=== PATIENT | female | born 1940 | race Caucasian/White ===

== ENCOUNTER 2017-01-26 08:24 | Inpatient (IN) | payer MEDICARE, MEDICAID ==
[~2017-01-26] VITALS: Ht 162.6 cm; Wt 49.9 kg
[2017-01-26] MEDS ORDERED: IV NS 0.9% 500 ML BAG IV ONE (08:30)
[2017-01-26] MEDS ORDERED: IV NS 0.9% 500 ML IV ONE (08:32)
[2017-01-26] MEDS ORDERED: IV SET PRIMARY 1 EA INFUS.SET MC ONE (08:32)
[2017-01-26 08:44] LABS: BASOPHILS % (AUTO) 0.4 % (0.0-2.0); EOSINOPHILS # (AUTO) 0.3 /CMM (0.0-0.7); EOSINOPHILS % (AUTO) 2.9 % (0.0-6.0); HEMATOCRIT 44 % (33-45); HEMOGLOBIN 14.6 g/dL (11.5-14.8); LYMPHOCYTES # (AUTO) 2.8 /CMM (0.8-4.8); LYMPHOCYTES % (AUTO) 30.4 % (20.0-44.0); MEAN CORPUSCULAR HEMOGLOBIN 32 PG (26.0-33.0); MEAN CORPUSCULAR HGB CONC 34 g/dl (31.0-36.0); MEAN CORPUSCULAR VOLUME 96 fL (82-100); MONOCYTES # (AUTO) 0.9 /CMM (0.1-1.30); MONOCYTES % (AUTO) 9.9 % (2.0-12.0); NEUTROPHILS # (AUTO) 5.2 /CMM (1.8-8.9); NEUTROPHILS % (AUTO) 56.4 % (43.0-81.0); PLATELET COUNT (AUTO) 303 /CMM (150-450); RDW COEFFICIENT OF VARIATION 16.1 (11.5-15.0); RED BLOOD CELL COUNT(AUTO) 4.55 MIL/uL (4.0-5.2); WHITE BLOOD COUNT (AUTO) 9.2 K/uL (4.3-11.0)
[2017-01-26 08:59] LABS: ALANINE AMINOTRANSFERASE 24 U/L (12-78); ALBUMIN 3.3 g/dL (3.4-5.0); ALKALINE PHOSPHATASE 120 U/L (46-116); ASPARTATE AMINOTRANSFERASE 29 U/L (15-37); BILIRUBIN,DIRECT 0.1 mg/dL (0.0-0.2); BILIRUBIN,TOTAL 0.7 mg/dL (0.2-1.0); CALCIUM, SERUM 9.5 mg/dL (8.5-10.1); CARBON DIOXIDE 26 mmol/L (21-32); CHLORIDE 107 mmol/L (98-107); CREATININE 1.1 mg/dL (0.6-1.3); GLUCOSE 101 mg/dL (74-106); POTASSIUM 4.2 mmol/L (3.5-5.1); SODIUM SERUM 141 mmol/L (136-145); TOTAL PROTEIN, SERUM 8.1 g/dL (6.4-8.2); UREA NITROGEN, BLOOD 17 mg/dL (7-18)
[2017-01-26 09:01] LABS: INR 1.09 (0.87-1.13); PROTHROMBIN TIME 11.7 SECS (9.5-12.7); TROPONIN I < 0.017 ng/mL (0.00-0.056)
[2017-01-26 10:30] LABS: APPEARANCE,URINE Clear (CLEAR); BILIRUBIN,URINE Negative (NEGATIVE); BLOOD, URINE Trace-lysed Ery/uL (NEGATIVE); COLOR,URINE Yellow (YELLOW); KETONES,URINE Negative (NEGATIVE); LEUKOCYTE ESTERASE ,URINE Trace (NEGATIVE); NITRITE, URINE Negative (NEGATIVE); PROTEIN,URINE 30 mg/dl (NEGATIVE); UGLUCOSE Negative (NEGATIVE); UROBILINOGEN,URINE 0.2 EU/dL (0.2)
[2017-01-26] MEDS ORDERED: ASPIRIN 81 MG TAB.CHEW PO ONE (10:30)
[2017-01-26 10:43] LABS: RBC,URINE 0-2 /HPF (0-2)
[2017-01-26 10:44] LABS: BACTERIA,URINE Rare /HPF (None Seen); SQUAMOUS EPITHELIAL CELL,UR Many /HPF (None Seen); WBC,URINE 0-2 /HPF (0-3)
[2017-01-26] MEDS ORDERED: ASPIRIN 81 MG TAB.CHEW ONE (10:52)
[2017-01-26 11:10] VITALS: BP 132/76
[2017-01-26 11:15] VITALS: BP_SYST 136; BP_SYST 154; BP_DIAS 75; BP_DIAS 88
[2017-01-26] MEDS ORDERED: HYDROCORTISONE 1% CREAM 28.35 GM TUBE TP PRN (11:40)
[2017-01-26] MEDS: METOPROLOL TARTRATE 50 MG TABLET PO SCH ×2 (12:39→21:45)
[2017-01-26] MEDS ORDERED: NITROGLYCERIN 0.4 MG/TAB BOTTLE SL PRN (13:30)
[2017-01-26 13:50] VITALS: BP 101/70
[2017-01-26 16:00] VITALS: BP 107/55
[2017-01-26] MEDS: APIXABAN 5 MG TABLET PO SCH (17:46)
[2017-01-26 20:00] VITALS: BP 141/76
[2017-01-26 20:27] LABS: MAGNESIUM 1.8 mg/dL (1.8-2.4); PHOSPHORUS 3.2 mg/dL (2.5-4.9)
[2017-01-26] MEDS: DRONEDARONE HYDROCHLORIDE 400 MG TABLET PO SCH (21:44)
[2017-01-26] MEDS: ATORVASTATIN 10 MG TABLET PO SCH (21:45)
[2017-01-27] VITALS: BP_SYST 116; BP_SYST 127; BP_DIAS 68; BP_DIAS 77
[2017-01-27 04:00] VITALS: BP_SYST 150; BP_SYST 154; BP_DIAS 89
[2017-01-27 08:00] VITALS: BP 143/83
[2017-01-27] MEDS ORDERED: REGADENOSON 0.4 MG/5 ML DISP.SYRIN IVP ONE (09:00)
[2017-01-27] MEDS: DRONEDARONE HYDROCHLORIDE 400 MG TABLET PO SCH ×2 (10:08→17:04)
[2017-01-27] MEDS: LEVOTHYROXINE SODIUM 25 MCG TABLET PO SCH (10:09)
[2017-01-27] MEDS: CHOLECALCIFEROL 1,000 UNIT TABLET (VIT D3) PO SCH (10:09)
[2017-01-27] MEDS: METOPROLOL TARTRATE 50 MG TABLET PO SCH ×2 (10:09→17:05)
[2017-01-27] MEDS: ASPIRIN 81 MG TAB.CHEW PO SCH (10:09)
[2017-01-27] MEDS: APIXABAN 5 MG TABLET PO SCH ×2 (10:10→17:05)
[2017-01-27] MEDS: LOSARTAN POTASSIUM 50 MG TABLET PO SCH (10:10)
[2017-01-27 12:00] VITALS: BP 147/77
[2017-01-27 16:00] VITALS: BP 117/72
[2017-01-27 20:00] VITALS: BP 114/70
[2017-01-27] MEDS: ATORVASTATIN 10 MG TABLET PO SCH (21:24)
[2017-01-28] VITALS: BP 114/70
[2017-01-28 04:00] VITALS: BP 144/96
[2017-01-28] MEDS: LEVOTHYROXINE SODIUM 25 MCG TABLET PO SCH (07:58)
[2017-01-28 08:00] VITALS: BP 133/74
[2017-01-28] MEDS: METOPROLOL TARTRATE 50 MG TABLET PO SCH (08:02)
[2017-01-28 08:03] VITALS: BP 133/74
[2017-01-28] MEDS: CHOLECALCIFEROL 1,000 UNIT TABLET (VIT D3) PO SCH (08:03)
[2017-01-28] MEDS: LOSARTAN POTASSIUM 50 MG TABLET PO SCH (08:03)
[2017-01-28] MEDS: APIXABAN 5 MG TABLET PO SCH (08:03)
[2017-01-28] MEDS: ASPIRIN 81 MG TAB.CHEW PO SCH (08:03)
[2017-01-28] MEDS: DRONEDARONE HYDROCHLORIDE 400 MG TABLET PO SCH (08:04)
== END 2017-01-28 14:23 | DRG 309 ==
LOC: ER 08:28 → TELE 09:51 → TELE-TD 14:13 → TELE1 01-27 15:55 → MEDSG1 01-28 11:57
PROVIDERS: ADMIT Internal Medicine; ATTEND Internal Medicine
DX: I48.91 Unspecified atrial fibrillation (principal); Z68.1 Body mass index [BMI] 19.9 or less, adult; J84.10 Pulmonary fibrosis, unspecified; F01.50 Vascular dementia, unspecified severity, without behavioral disturbance, psychotic disturbance, mood disturbance, and anxiety; E44.1 Mild protein-calorie malnutrition; I25.2 Old myocardial infarction; I47.1 Supraventricular tachycardia; I25.10 Atherosclerotic heart disease of native coronary artery without angina pectoris; J47.9 Bronchiectasis, uncomplicated; K21.9 Gastro-esophageal reflux disease without esophagitis; R55 Syncope and collapse; I10 Essential (primary) hypertension; R05 Cough; R91.1 Solitary pulmonary nodule; E03.9 Hypothyroidism, unspecified
CPT/HCPCS: 36415; 70450-TC; 71010-TC; 71250-TC; 80048-TC; 80061-TC; 80076-TC; 81000-TC; 83605-TC; 83735-TC; 84100-TC; 84439-TC; 84443-TC; 84484-TC; 85025-TC; 85730-TC; 87040-TC; 87081-TC; 87086-TC; 93307-TC; A4606; A9502; J2785; J7040; Z7610

== ENCOUNTER 2018-03-19 23:57 | Inpatient (IN) | payer MEDICARE, MEDICAID ==
[~2018-03-19] VITALS: Ht 152.4 cm; Wt 69.9 kg
[2018-03-20] VITALS (67 sets, daily range): BP systolic 51–250; BP diastolic 35–129
--- NOTE | 2018-03-20 | NUR ---
BBRA FROM [facility] ASSISTED LIVING C/C PER EMS "WAS WONDERING INTO OTHER RESIDENTS ROOMS AND PER FACILITY, IS MORE ALTERED THAN NORMAL". PT IS AAOX1. PT NOTED TO BE LETHARGIC AND TACHYPNIC. MILD S/S OF DISTRESS NOTED IN PT. RESP EVEN AND RAPID AT 32-38 PER MINUTE. SPO2 96% ON RA, PER MD PT PLACED ON NR 15L/M. SKIN WNL. PT PLACED ON MACHINE SPRAYER AND POX. PT SAFETY AND COMFORT MEASURES IN PLACE. BEDSIDE FOR EVAL.
--- NOTE | 2018-03-20 00:10 | NUR ---
PT STATES "I FEEL LIKE IM GOING TO ". PT NOTED SPITTING/COUGHING OUT BRIGHT RED BLOOD. MD BEDSIDE AND AWARE. WILL CONTINUE TO MONITOR
[2018-03-20] MEDS ORDERED: DEXTROSE 50%-WATER 50 ML DISP.SYRIN ONE (00:21)
[2018-03-20] MEDS ORDERED: IV NS 0.9% 1,000 ML BAG IV ONE ×3 (00:30→01:00)
[2018-03-20 00:39] LABS: BASOPHILS % (AUTO) 0.1 % (0.0-2.0); EOSINOPHILS % (AUTO) 0.3 % (0.0-6.0); HEMATOCRIT 47 % (33-45); HEMOGLOBIN 14.8 g/dL (11.5-14.8); LYMPHOCYTES # (AUTO) 0.3 /CMM (0.8-4.8); LYMPHOCYTES % (AUTO) 6.8 % (20.0-44.0); MEAN CORPUSCULAR HGB CONC 32 g/dl (31.0-36.0); MEAN CORPUSCULAR VOLUME 100 fL (82-100); MONOCYTES % (AUTO) 0.2 % (2.0-12.0); NEUTROPHILS # (AUTO) 3.6 /CMM (1.8-8.9); NEUTROPHILS % (AUTO) 92.6 % (43.0-81.0); PLATELET COUNT (AUTO) 163 /CMM (150-450); RED BLOOD CELL COUNT(AUTO) 4.69 MIL/uL (4.0-5.2); WHITE BLOOD COUNT (AUTO) 3.8 K/uL (4.3-11.0)
[2018-03-20 00:41] LABS: APPEARANCE,URINE CLEAR (CLEAR); BILIRUBIN,URINE NEGATIVE (NEGATIVE); BLOOD, URINE 2+ Ery/uL (NEGATIVE); COLOR,URINE ORANGE (YELLOW); KETONES,URINE NEGATIVE (NEGATIVE); LEUKOCYTE ESTERASE ,URINE NEGATIVE (NEGATIVE); NITRITE, URINE NEGATIVE (NEGATIVE); PROTEIN,URINE 1+ mg/dl (NEGATIVE); UGLUCOSE TRACE mg/dL (NEGATIVE)
[2018-03-20] MEDS ORDERED: PANTOPRAZOLE 40 MG VIAL ONE ×2 (00:42→00:46)
[2018-03-20] MEDS ORDERED: PROPOFOL 100 ML ONE (00:42)
--- NOTE | 2018-03-20 00:45 | NUR ---
MD PETER BEDSIDE. RT BARRY BEDSIDE. TEXTILE SLITTING MACHINE OPERATOR DEGRASSEE BEDSIDE. RN WEI,RN PAO BEDSIDE FOR ASSISTANCE FOR INTUBATION.
[2018-03-20 00:47] LABS: BACTERIA,URINE Few /HPF (None Seen); RBC,URINE 81-100 /HPF (0-2)
[2018-03-20 00:48] LABS: SQUAMOUS EPITHELIAL CELL,UR Few /HPF (None Seen)
--- NOTE | 2018-03-20 00:48 | NUR ---
SUCCESSFUL INTUBATION AT 0048
--- NOTE | 2018-03-20 00:48 | NUR ---
VENT SETTINGS FOLLOW: AC30, 450, 100%, PEEP 10
[2018-03-20 00:53] LABS: CALCIUM, SERUM 8.8 mg/dL (8.5-10.1); CARBON DIOXIDE 20 mmol/L (21-32); CHLORIDE 102 mmol/L (98-107); CREATININE 1.2 mg/dL (0.6-1.3); GLUCOSE 105 mg/dL (74-106); POTASSIUM 5.7 mmol/L (3.5-5.1); SERUM AMMONIA 26 umol/L (11-32); SODIUM SERUM 136 mmol/L (136-145); UREA NITROGEN, BLOOD 25 mg/dL (7-18)
--- NOTE | 2018-03-20 00:53 | NUR ---
PT INUTBATED BY DO PETER WITH 7.5 ETT AND 23 CM @ LIP AND PLACED ON AC MODE. VERIFIED TUBE BY POSITIVE COLOR CHANGE ON CAPNOGRAPY AND BY MIST ON EXHALATION IN TUBE. PT TOLERATING VENT SETTINGS WELL WITH NO RESPIRATORY DISTRESS NOTED AT THIS TIME. BREATH SOUNDS COARSE. SX PRN RETURNING FRESH BLOODY SECRETIONS. VENT ALARMS CHECKED FOUND TO BE FUNCTIONAL, AUDIBLE, AND WITHIN LIMITS. VENT PLUGGED INTO RED OUTLET. BVM AT BEDSIDE. WILL CONTINUE TO MONITOR.
[2018-03-20 00:54] LABS: INR 1.97 (0.87-1.13)
[2018-03-20] MEDS ORDERED: ROCURONIUM BROMIDE 100 MG/10 ML VIAL IV ONE (01:00)
[2018-03-20] MEDS ORDERED: PANTOPRAZOLE 80 MG in IV NS 0.9% 500 ML IV ONE (01:00)
[2018-03-20] MEDS ORDERED: ETOMIDATE 2 MG/ML VIAL IV ONE ×2 (01:00→08:40)
[2018-03-20] MEDS ORDERED: DEXTROSE 50%-WATER 50 ML DISP.SYRIN IVP ONE (01:00)
[2018-03-20] MEDS ORDERED: PROPOFOL 100 ML IV PRN ×2 (01:00→03:30)
[2018-03-20] MEDS ORDERED: PANTOPRAZOLE 80 MG in IV NS 0.9% 100 ML IV ONE (01:00)
--- NOTE | 2018-03-20 01:03 | NUR ---
ICU 260
[2018-03-20 01:04] LABS: TROPONIN I < 0.017 ng/mL (0.00-0.056)
[2018-03-20 01:08] LABS: ALANINE AMINOTRANSFERASE 23 U/L (12-78); ALBUMIN 3.4 g/dL (3.4-5.0); ALCOHOL, BLOOD < 3 mg/dL (0-0); ALKALINE PHOSPHATASE 114 U/L (46-116); ASPARTATE AMINOTRANSFERASE 59 U/L (15-37); BILIRUBIN,DIRECT 0.8 mg/dL (0.0-0.2); BILIRUBIN,TOTAL 3.2 mg/dL (0.2-1.0); TOTAL PROTEIN, SERUM 7.7 g/dL (6.4-8.2)
[2018-03-20 01:09] LABS: THYROID STIMULATING HORMONE 10.414 uIU/mL (0.358-3.74)
[2018-03-20 01:16] LABS: SALICYLATE < 0.2 mg/dL (2.8-20.0)
[2018-03-20] MEDS ORDERED: IOHEXOL-350 100 ML VIAL IV ONE (01:16)
[2018-03-20] MEDS ORDERED: IV NS 0.9% 250 ML IV ONE (01:16)
[2018-03-20] MEDS ORDERED: CT SWABBABLE VALVE TRANS SET 1 EA INFUS.SET MC ONE (01:16)
[2018-03-20 01:17] LABS: ACETAMINOPHEN < 0 ug/ml (10-30)
[2018-03-20 02:15] LABS: ABG BASE EXCESS -12.1 mmol/L; ABG OXYGEN SATURATION 93.7 % (92.0-98.5); ABG PCO2 33.3 mmHg (35.0-45.0); ABG PH 7.243 (7.350-7.450); ABG PO2 84.1 mmHg (75.0-100.0); AaDO2 451.3 mmHg; COHb 0.5 % (0.5-1.5); MetHb 0.5 % (0.0-1.5); O2Hb 92.8 % (94.0-97.0); SITE, ABG Left Radial; VENT MODE, BG NRB
[2018-03-20 02:16] LABS: ABG BASE EXCESS -11.4 mmol/L; ABG OXYGEN SATURATION 90.6 % (92.0-98.5); ABG PCO2 44.7 mmHg (35.0-45.0); ABG PH 7.185 (7.350-7.450); ABG PO2 76.1 mmHg (75.0-100.0); AaDO2 592.2 mmHg; COHb 0.8 % (0.5-1.5); MetHb 0.6 % (0.0-1.5); O2Hb 89.3 % (94.0-97.0); PEEP,BG 10 cm H2O; SITE, ABG Right Radial; VENT MODE, BG AC 30 450 100% +10; VT, ABG 450 mL
[2018-03-20] MEDS ORDERED: SODIUM BICARBONATE SYR 50 MEQ/50 ML DISP.SYRIN ONE ×2 (02:26→04:34)
[2018-03-20] MEDS ORDERED: VANCOMYCIN 1 GM VIAL ONE (02:26)
[2018-03-20] MEDS ORDERED: PIPERACILLIN /TAZOBACTAM 3.375 G VIAL IV ONE (02:26)
[2018-03-20] MEDS ORDERED: VANCOMYCIN 1 GM in IV D5W 250 ML IV ONE (02:30)
[2018-03-20] MEDS ORDERED: SODIUM BICARBONATE SYR 50 MEQ/50 ML DISP.SYRIN IV ONE (02:30)
[2018-03-20] MEDS ORDERED: SODIUM BICARBONATE SYR 100 MEQ in IV NS 0.9% 1,000 ML IV PRN (02:30)
[2018-03-20] MEDS ORDERED: PIPERACILLIN /TAZOBACTAM 3.375 G in IV D5W 50 ML IV ONE (02:30)
--- NOTE | 2018-03-20 03:22 | NUR ---
REPORT GIVEN TO WEIGH MACHINE OPERATORALEJANDRA JUARES FOR [facility]
--- NOTE | 2018-03-20 03:36 | NUR ---
WET PRESS TENDER INITIAL NOTE RECEIVED REPORT FROM ER NURSE VANDANA. RECEIVED PATIENT VIA GURNEY, SEDATED ON DIPRIVAN AT 20MCG/KG/MIN, INTUBATED IN ER, ETT 7.5 CM, 23CM AT THE LIP. WITH VENT SETTINGS AC 30, TV 450, FIO2 100%, PEEP 10. NO DISTRESS NOTED. NO S/S OF PAIN OR DISCOMFORT. NOTED WITH BLOOD TINGED SECRETIONS UPON SUCTIONING ETT. NOTED WITH LAC AND RFA 18G PERIPHERAL IV PATENT AND INTACT, VANCO RUNNING. ON TELE MONITOR SR WITH OCC PVCS. F/C PATENT, INTACT, DRAINING BY GRAVITY. SKIN ASSESSMENT DONE. WILL INITIATE ADMISSION ORDERS. HOB ELEVATED. SIDE RAILS UP AND LOCKED. BED KEPT AT LOWEST POSITION. CALL LIGHT KEPT WITHIN EASY REACH. WILL CONTINUE TO MONITOR.
--- NOTE | 2018-03-20 04:00 | NUR ---
RN NOTES RECEIVED CALL FROM DR BENOIT. PER DR BENOIT, FOLLOW UP WITH THE GI ON-CALL REGARDING SCOPING THIS PATIENT SOON POSSIBLE. CALLED AND SPOKE TO DR RADHA MORTENSEN. RELAYED DR BENOIT'S MESSAGE REGARDING NEED TO SCOPE THIS PATIENT. PER DR MORTENSEN, CONTINUE TO MONITOR THE PATIENT AND REPEAT H/H @ 0600, THEN CALL BACK WITH UPDATES. ALL ORDERS READ BACK FOR CLARIFICATION. WILL CONTINUE TO CLOSELY MONITOR
[2018-03-20] MEDS: PROPOFOL 100 ML IV PRN ×3 (04:01→17:53)
[2018-03-20] MEDS ORDERED: MISCELLANEOUS MED 1 EA EA XX ONE (04:30)
[2018-03-20] MEDS: Sodium Bicarbonate 50 MEQ in IV 1/2NS 1000 ML 1,000 ML IV PRN ×2 (04:39→17:56)
[2018-03-20] MEDS ORDERED: OCTREOTIDE 500 MCG/ML VIAL ONE ×2 (04:54→05:26)
[2018-03-20] MEDS ORDERED: OCTREOTIDE 50 MCG in IV NS 0.9% 50 ML IV ONE (05:00)
[2018-03-20] MEDS ORDERED: OCTREOTIDE 1,250 MCG in IV NS 0.9% 247.5 ML IV PRN (05:00)
--- NOTE | 2018-03-20 05:00 | NUR ---
RN NOTES LEFT NARE NGT INSERTED, PATIENT TOLERATED WELL. ATTEMPTED TO ASPIRATE GASTRIC CONTENTS, NOTED WITH < 10ML OF ARNALDO RED BLOOD
[2018-03-20 06:50] LABS: EOSINOPHILS % (AUTO) 0.2 % (0.0-6.0); HEMATOCRIT 38 % (33-45); HEMOGLOBIN 12.5 g/dL (11.5-14.8); LYMPHOCYTES # (AUTO) 1.3 /CMM (0.8-4.8); LYMPHOCYTES % (AUTO) 7.6 % (20.0-44.0); MEAN CORPUSCULAR HGB CONC 33 g/dl (31.0-36.0); MEAN CORPUSCULAR VOLUME 101 fL (82-100); MONOCYTES # (AUTO) 0.2 /CMM (0.1-1.30); MONOCYTES % (AUTO) 0.9 % (2.0-12.0); NEUTROPHILS % (AUTO) 91.3 % (43.0-81.0); PLATELET COUNT (AUTO) 213 /CMM (150-450); RDW COEFFICIENT OF VARIATION 16.5 (11.5-15.0); RED BLOOD CELL COUNT(AUTO) 3.82 MIL/uL (4.0-5.2); WHITE BLOOD COUNT (AUTO) 17.5 K/uL (4.3-11.0)
--- NOTE | 2018-03-20 07:10 | NUR ---
ROLL ICER NOTES RECEIVED CALL FROM DR BENOIT FOR UPDATE REGARDING PATIENT. VSS AT THIS TIME. LEFT NARE NGT INSERTED ATTEMPTED TO ASPIRATE GASTRIC CONTENTS, WITH OUTPUT OF < 10ML OF ARNALDO RED BLOOD. ALSO RELAYED LATEST LAB RESULTS OF H/H ., FROM . RECEIVED VERBAL ORDER FROM DR BENOIT TO STOP OCTREOTIDE DRIP AND CONTINUE PROTONIX IVP AND ALL OTHER ORDERS.
--- NOTE | 2018-03-20 07:15 | NUR ---
RN INITIAL NOTES RECEIVED PT INTUBATED, ON VENT. NO RESPIRATORY DISTRESS NOTED. NO SOB NOTED. HOB ELEVATED. NO SIGNS OF PAIN NOTED. IV LINES IN PLACE. PT ON DIPRIVAN AT 20MCG/KG,MIN. WILL TITRATE ACCORDINGLY. ON IVF: 1/2 NS + SODIUM BICARB 50MEQ AT 75ML/HR, INFUSING WELL. FC IN PLACE. NO HEMATURIA NOTED. PT REPOSITIONED. BLE ELEVATED. WILL CONTINUE TO MONITOR.
--- NOTE | 2018-03-20 07:28 | NUR ---
PT. RECEIVED ON VENT SUPPORT VIA ET TUBE SIZE 7.5 SECURED @ 23 CM LIP LINE. VENT PARAMETERS BELOW ORDER: AC 30 VT 450 FIO2 100% PEEP + 10 BREATH SOUNDS CLEAR BILATERAL, SXN MODERATE AMNT BLOOD TINGED SECRETIONS. SEMAJU BAG @ BEDSIDE. Addendum: 03/20/18 at 1035 by KERMIT POTTS RT Amended: Links added.
[2018-03-20 07:59] LABS: BAND % (MANUAL) 34 % (0.0-5.0); LYMPHOCYTES % (MANUAL) 4 % (16-48); METAMYELOCYTES % 1 % (0-0); MONOCYTES % (MANUAL) 4 % (0-11.0); NEUTROPHILS % (MANUAL) 57 (42-76)
[2018-03-20 08:23] LABS: EOSINOPHILS % (AUTO) 0.5 % (0.0-6.0); HEMATOCRIT 36 % (33-45); HEMOGLOBIN 11.9 g/dL (11.5-14.8); LYMPHOCYTES # (AUTO) 1.1 /CMM (0.8-4.8); MEAN CORPUSCULAR HGB CONC 33 g/dl (31.0-36.0); MEAN CORPUSCULAR VOLUME 101 fL (82-100); MONOCYTES # (AUTO) 0.4 /CMM (0.1-1.30); MONOCYTES % (AUTO) 1.6 % (2.0-12.0); NEUTROPHILS % (AUTO) 92.9 % (43.0-81.0); PLATELET COUNT (AUTO) 180 /CMM (150-450); RDW COEFFICIENT OF VARIATION 16.7 (11.5-15.0); RED BLOOD CELL COUNT(AUTO) 3.57 MIL/uL (4.0-5.2); WHITE BLOOD COUNT (AUTO) 21.6 K/uL (4.3-11.0)
[2018-03-20 08:26] LABS: ABG BASE EXCESS -1.2 mmol/L; ABG OXYGEN SATURATION 95.7 % (92.0-98.5); ABG PCO2 40.2 mmHg (35.0-45.0); ABG PH 7.388 (7.350-7.450); ABG PO2 89.6 mmHg (75.0-100.0); AaDO2 583.2 mmHg; COHb 0.3 % (0.5-1.5); MetHb 0.5 % (0.0-1.5); O2Hb 94.9 % (94.0-97.0); PEEP,BG 10 cm H2O; SITE, ABG Right Brachial; VT, ABG 450 mL
[2018-03-20] MEDS ORDERED: FEE PK DOSING 1 MIN EA MC ONE (08:35)
[2018-03-20 08:39] LABS: BAND % (MANUAL) 32 % (0.0-5.0); LYMPHOCYTES % (MANUAL) 2 % (16-48); MONOCYTES % (MANUAL) 3 % (0-11.0); NEUTROPHILS % (MANUAL) 63 (42-76)
[2018-03-20] MEDS ORDERED: ROCURONIUM BROMIDE 50 MG/5 ML IV ONE (08:40)
[2018-03-20] MEDS: PANTOPRAZOLE 40 MG VIAL IV SCH ×2 (08:49→21:32)
[2018-03-20] MEDS: SOTALOL HCL 80 MG TABLET PO SCH ×2 (08:49→17:00)
--- NOTE | 2018-03-20 09:53 | NUR ---
RN NOTES 0830 SEEN AND EXAMINED BY DR BENOIT. PT REMAINS INTUBATED, ON VENT. PT ON DIPRIVAN, WILL DO SEDATION VACATION. PT ON IVF. MD AWARE OF LAB VALUES: WBC 17.5, HGB 12.5, HCT 38, PLATELET 213 AND POTASSIUM 5.7. NO SIGNS OF ACTIVE BLEEDING NOTED. SANDOSTATIN IV DC'D PER MD. PT ON PROTONIX. FOR GI CONSULT, DR MORTENSEN NOTIFIED. WILL MONITOR. 0840 DR MORTENSEN CALLED AND STATED DR MUIR IS RELEASE OF INFORMATION CLERK FOR THIS PT. CALLED DR MUIR'S OFFICE ([phone]), PAGED. AWAITING CALL BACK. DR BENOIT AWARE. WILL CONTINUE TO MONITOR.
--- NOTE | 2018-03-20 10:30 | NUR ---
RN NOTES 1000 SEEN AND EXAMINED BY DR VAZ. PT INTUBATED, ON VENT. TOLERATING WEL. NO SOB NOTED. MD AWARE OF LAB VALUES, CXR AND ABG RESULT. PT ON IVF: 1/2 NS + SODIUM BICARB 50 MEQ AT 75ML/HR. NO SIGNS OF ACTIVE BLEEDING NOTED. WILL CONTINUE TO MONITOR 1030 SEEN AND EXAMINED BY DR MUIR. NO SIGNS OF ACTIVE BLEEDING. PT NOT ON ANY BLOOD THINNER. PT ON PROTONIX IV. VITAL SIGNS STABLE. WILL CONTINUE TO MONITOR.
--- NOTE | 2018-03-20 10:49 | NUR ---
WOUND CARE CONSULT: PT PRESENTS WITH FRAGILE SCAR TO SACRUM WITH SURROUNDING DEEP TISSUE INJURY WHICH IS INTACT, PRESENT ON ADMISSION. PT IS CURRENTLY INTUBATED WITH ASHIA SCORE OF 12. RECOMMENDATIONS MADE FOR WOUND CARE AND SKIN PROTECTION. DISCUSSED WITH NURSING STAFF. FIRST STEP LOW AIRLOSS MATTRESS ORDERED. WILL SEE PRN. IN AGREEMENT WITH PLAN OF CARE.
[2018-03-20] MEDS: Z GUARD REMEDY 2 OZ OINT TP SCH (11:00)
[2018-03-20] MEDS: ZOSYN IVPB 2.25 G in IV D5W 50ml IV SCH ×3 (12:11→23:32)
[2018-03-20 16:48] LABS: EOSINOPHILS % (AUTO) 0.1 % (0.0-6.0); HEMATOCRIT 31 % (33-45); HEMOGLOBIN 9.9 g/dL (11.5-14.8); LYMPHOCYTES # (AUTO) 0.8 /CMM (0.8-4.8); MEAN CORPUSCULAR HGB CONC 32 g/dl (31.0-36.0); MEAN CORPUSCULAR VOLUME 100 fL (82-100); MONOCYTES # (AUTO) 0.5 /CMM (0.1-1.30); MONOCYTES % (AUTO) 3.2 % (2.0-12.0); NEUTROPHILS # (AUTO) 15.5 /CMM (1.8-8.9); NEUTROPHILS % (AUTO) 91.7 % (43.0-81.0); PLATELET COUNT (AUTO) 164 /CMM (150-450); RDW COEFFICIENT OF VARIATION 16.5 (11.5-15.0); RED BLOOD CELL COUNT(AUTO) 3.08 MIL/uL (4.0-5.2); WHITE BLOOD COUNT (AUTO) 16.9 K/uL (4.3-11.0)
[2018-03-20 17:05] LABS: BAND % (MANUAL) 20 % (0.0-5.0); LYMPHOCYTES % (MANUAL) 10 % (16-48); METAMYELOCYTES % 1 % (0-0); MONOCYTES % (MANUAL) 8 % (0-11.0); MYELOCYTES % 1 % (0-0); NEUTROPHILS % (MANUAL) 60 (42-76)
[2018-03-20] MEDS ORDERED: PROTHROMBIN COMPLEX CONCENTR 500 UNIT VIAL IV ONE (17:30)
--- NOTE | 2018-03-20 17:44 | NUR ---
RN NOTES DR BENOIT CALLED AND GIVEN UPDATE REGARDING PT'S CONDITION. PT ORDERED KCENTRA A REVERSAL MEDICATION FOR XARELTO. PT HAS UPPER GI BLEED ON ADMISSION. PT SEEN AND EXAMINED BY DR MUIR AND ORDERED EGD, MOST LIKELY FOR JSOUÉ. NO MELENA NOTED. SPOKE WITH BILLY (PHARMACIST) REGARDING KCENTRA ORDER. WILL CONTINUE TO MONITOR.
[2018-03-20] MEDS: NOREPINEPHRINE 16 MG in IV D5W 500 ML IV PRN (18:27)
--- NOTE | 2018-03-20 18:47 | NUR ---
RN CLOSING NOTES PT REMAINS INTUBATED, ON VENT. NO RESPIRATORY DISTRESS NOTED. HOB ELEVATED. PT HAS LUIS ALBERTO PICC LINE. ON LEVO AT 1MCG/MIN, WILL TITRATE. DIPRIVAN AT 40MCG/MG/MIN AND IVF. NGT CLAMPED. FC IN PLACE. KEPT CLEAN AND DRY. REPOSITIONED Q2. TX PROVIDED ORDERED. B;LE ELEVATED. WILL ENDORSE FOR CONTINUITY OF CARE.
[2018-03-20] MEDS ORDERED: PROTHROMBIN COMPLEX CONCENTR IV ONE (20:00)
[2018-03-20] MEDS ORDERED: WATER FOR INJECTION STERILE IV ONE (20:00)
[2018-03-20 20:24] LABS: BILIRUBIN,DIRECT 2.5 mg/dL (0.0-0.2); BILIRUBIN,TOTAL 3.6 mg/dL (0.2-1.0); TOTAL PROTEIN, SERUM 4.9 g/dL (6.4-8.2)
[2018-03-20] MEDS ORDERED: ATORVASTATIN 40 MG TABLET PO SCH (22:00)
--- NOTE | 2018-03-20 22:00 | NUR ---
RN NOTES US ABDOMEN RESULTS RELAYED TO KAYKAY ALVAREZ NP. PER KAYKAY, ORDER HIDA SCAN FOR TOMORROW, WELL TOTAL AND DIRECT BILIRUBIN, AND LFTs FOR TOMORROW MORNING
--- NOTE | 2018-03-20 22:30 | NUR ---
RN NOTES SPOKE TO PATIENT'S SON ALINE DWYER, CONSENTS OBTAINED FOR BLOOD TRANSFUSION, HIDA SCAN, AND ANESTHESIA. ALL QUESTIONS REGARDING CONSENTS ANSWERED.
[2018-03-20 22:32] LABS: D-DIMER 14.04 mg/L(FEU (0.17-0.50)
[2018-03-21] VITALS (100 sets, daily range): BP systolic 79–162; BP diastolic 31–93
[2018-03-21] MEDS: PROPOFOL 100 ML IV PRN ×5 (01:05→22:30)
[2018-03-21] MEDS: VANCOMYCIN 1 GM in IV D5W 250 ML IV SCH (03:02)
--- NOTE | 2018-03-21 04:11 | NUR ---
pt received on vent via ett with charted settings. airway patent. secure via anchor fast. ambu bag at bedside. alarms set and audible, disconnect alarms checked plugged into red outlet suctioned a small amount of thin white secretions. pt hob at 30 degrees. suctioned oral secretion from pts mouth Addendum: 03/21/18 at 0411 by CHLOE STINSON RT Amended: Links added.
[2018-03-21 04:15] LABS: INR 1.48 (0.87-1.13)
[2018-03-21 04:25] LABS: ALANINE AMINOTRANSFERASE 27 U/L (12-78); ALBUMIN 1.9 g/dL (3.4-5.0); ALKALINE PHOSPHATASE 57 U/L (46-116); ASPARTATE AMINOTRANSFERASE 53 U/L (15-37); BILIRUBIN,DIRECT 2.2 mg/dL (0.0-0.2); BILIRUBIN,TOTAL 3.2 mg/dL (0.2-1.0); CALCIUM, SERUM 7.1 mg/dL (8.5-10.1); CARBON DIOXIDE 24 mmol/L (21-32); CHLORIDE 104 mmol/L (98-107); CREATININE 1.4 mg/dL (0.6-1.3); GLUCOSE 92 mg/dL (74-106); POTASSIUM 3.7 mmol/L (3.5-5.1); SODIUM SERUM 141 mmol/L (136-145); TOTAL PROTEIN, SERUM 4.9 g/dL (6.4-8.2); UREA NITROGEN, BLOOD 25 mg/dL (7-18)
[2018-03-21 04:50] LABS: BASOPHILS % (AUTO) 0.1 % (0.0-2.0); EOSINOPHILS % (AUTO) 0.1 % (0.0-6.0); HEMATOCRIT 27 % (33-45); HEMOGLOBIN 8.5 g/dL (11.5-14.8); LYMPHOCYTES # (AUTO) 0.5 /CMM (0.8-4.8); LYMPHOCYTES % (AUTO) 3.3 % (20.0-44.0); MEAN CORPUSCULAR HGB CONC 32 g/dl (31.0-36.0); MEAN CORPUSCULAR VOLUME 99 fL (82-100); MONOCYTES # (AUTO) 0.7 /CMM (0.1-1.30); MONOCYTES % (AUTO) 4.3 % (2.0-12.0); NEUTROPHILS # (AUTO) 13.8 /CMM (1.8-8.9); NEUTROPHILS % (AUTO) 92.2 % (43.0-81.0); PLATELET COUNT (AUTO) 155 /CMM (150-450); RDW COEFFICIENT OF VARIATION 16.7 (11.5-15.0); RED BLOOD CELL COUNT(AUTO) 2.72 MIL/uL (4.0-5.2)
--- NOTE | 2018-03-21 05:00 | NUR ---
RN NOTES PATIENT NOTED TO BE MILDLY AGITATED, PROPOFOL DRIP INCREASED PER PROTOCOL. WILL MONITOR CLOSELY
[2018-03-21 06:04] LABS: BAND % (MANUAL) 21 % (0.0-5.0); LYMPHOCYTES % (MANUAL) 5 % (16-48); MONOCYTES % (MANUAL) 3 % (0-11.0); NEUTROPHILS % (MANUAL) 71 (42-76)
[2018-03-21] MEDS: ZOSYN IVPB 2.25 G in IV D5W 50ml IV SCH ×3 (06:48→17:01)
--- NOTE | 2018-03-21 07:00 | NUR ---
ONCOLOGY COORDINATOR CLOSING NOTES PATIENT RESTING IN BED, APPEARS COMFORTABLE, REMAINS SEDATED ON DIPRIVAN @ 50 MCG/KG/MIN. NO FEVER THROUGHOUT SHIFT. REMAINS ORALLY INTUBATED ON MECHANICAL VENTILATOR, WITH BLOOD SPUTUM/SECRETIONS. LEFT NARE NGT REMAINS CLAMPED, GASTRIC ASPIRATE FREE FROM ANY ARNALDO RED BLOOD. NO STOOL OUTPUT NOTED THROUGHOUT THE SHIFT, WILL ENDORSE THE PATIENT TO THE AM SHIFT NURSE FOR CONTINUITY OF CARE.
--- NOTE | 2018-03-21 07:05 | NUR ---
RN INITIAL NOTES RECEIVED PT INTUBATED, ON VENT. NO RESPIRATORY DISTRESS NOTED. NO SOB NOTED. HOB ELEVATED. NO SIGNS OF PAIN NOTED. IV LINES IN PLACE. PT ON DIPRIVAN AT 50MCG/KG,MIN NAD LEVO AT 2MCG/MIN. WILL TITRATE ACCORDINGLY. ON IVF: 1/2 NS + SODIUM BICARB 50MEQ AT 75ML/HR, INFUSING WELL. PT FOR EGD TODAY. FC IN PLACE. NO HEMATURIA NOTED. PT REPOSITIONED. BLE ELEVATED. WILL CONTINUE TO MONITOR.
--- NOTE | 2018-03-21 08:00 | NUR ---
RT PATIENT REC[facility]D [facility] WITH SETTING SET BY MD. VENT ALARMS CHECKED + AUDIBLE. CUFF PRESSURE CHECKED CUT PRESS OPERATOR. SUCTIONED AIRWAY WITH SMALL/MOD AMT OF HUERTA SEMITHICK SECRETIONS. B/S DIM. PATIENT IN CRITICAL CONDITION. AMBU BAG AT [facility].
--- NOTE | 2018-03-21 08:00 | NUR ---
RT PATIENT REC'D ORALLY INTUBATED ON [facility] VENT WITH SETTING SET BY . VENT ALARMS CHECKED + AUDIBLE. CUFF PRESSURE CHECKED PHYSICIAN CREDENTIALING SPECIALIST. SUCTIONED AIRWAY WITH SMALL/MOD AMT OF HUERTA SEMITHICK SECRETIONS. B/S DIM. PATIENT IN CRITICAL CONDITION. AMBU BAG AT HOB. Addendum: 03/21/18 at 1111 by JATIN BURCIAGA RT Amended: Links added.
[2018-03-21] MEDS: PANTOPRAZOLE 40 MG VIAL IV SCH ×2 (08:04→21:25)
[2018-03-21] MEDS: Z GUARD REMEDY 2 OZ OINT TP SCH (08:05)
[2018-03-21] MEDS ORDERED: ANESTHESIA TRAY IN PYXIS 1 EA TRAY MC ONE (08:36)
[2018-03-21] MEDS: SOTALOL HCL 80 MG TABLET PO SCH ×2 (09:00→17:14)
[2018-03-21] MEDS ORDERED: PROTHROMBIN COMPLEX CONCENTR 500 UNIT VIAL IV ONE (09:00)
[2018-03-21] MEDS ORDERED: ETOMIDATE 2 MG/ML VIAL ONE (09:10)
--- NOTE | 2018-03-21 09:30 | NUR ---
RN NOTES 0900 PT FOR EGD WITH DR MORTENSEN. PT INTUBATED, ON VENT. NO RESPIRATORY DISTRESS NOTED. NO SOB NOTED. NO SIGNS OF PAIN NOTED. LEVO ON HOLD, SBP>100. ON DIPRIVAN AT 50MCG/KG/MIN. WILL CLOSELY MONITOR. EGD DONE UNDER DR MORTENSEN. TOLERATED PROCEDURE WELL. NOTED ESOPHAGITIS UPPER THIRD AND SMALL HIATAL HERNIA. VITAL SIGNS STABLE. WILL CLOSELY MONITOR.
[2018-03-21] MEDS: Sodium Bicarbonate 50 MEQ in IV 1/2NS 1000 ML 1,000 ML IV PRN (10:35)
[2018-03-21 11:46] LABS: ABG BASE EXCESS 0.7 mmol/L; ABG OXYGEN SATURATION 98.3 % (92.0-98.5); ABG PCO2 33.2 mmHg (35.0-45.0); ABG PH 7.476 (7.350-7.450); ABG PO2 215.6 mmHg (75.0-100.0); AaDO2 464.2 mmHg; COHb 0.1 % (0.5-1.5); MetHb 0.9 % (0.0-1.5); O2Hb 97.3 % (94.0-97.0); PEEP,BG 10 cm H2O; SITE, ABG Right Radial; VT, ABG 450 mL
--- NOTE | 2018-03-21 11:53 | NUR ---
POST ABG RESULTS VENT SETTINGS CHANGED PER DR VAZ TO AC 20, 450, +8 PEEP. TITRATE FIO2 TO MAINTAIN SPO2 ABOVE 92% Addendum: 03/21/18 at 1154 by JATIN BURCIAGA RT Amended: Links added.
--- NOTE | 2018-03-21 11:55 | NUR ---
RN NOTES SEEN AND EXAMINED BY DR BENOIT. PT REMAINS INTUBATED, ON VENT. PT WAS ABLE TO FOLLOW COMMANDS DURING SEDATION VACATION, BECAME TACHYPNEIC AND O2 SAT DROPPED TO 88%. DIPRIVAN RESTARTED. PT ON LEVO, TITRATING ACCORDINGLY. MD GIVEN UPDATE ON PT'S STATUS. EGD DONE BY DR MORTENSEN, DR BENOIT AWARE OF RESULT. MD AWARE OF LAB VALUES: WBC 15, HGB 8.5, HCT 27, PLATELET 155, BUN 25, CREA 1.4. MD ALSO AWARE OF HIDA SCAN ORDERED. PER MD, HE WILL REVIEW PT'S LAB VALUES AGAIN BEFORE DOING PROCEDURE. WILL CONTINUE TO MONITOR.
--- NOTE | 2018-03-21 12:00 | NUR ---
RN NOTES SEEN AND EXAMINED BY DR VAZ. PT REMAINS INTUBATED, ON VENT. NO RESPIRATORY DISTRESS NOTED. NO SOB NOTED. PT'S LEVO ON HOLD, BP 126/67, WILL MONITOR. PT SEDATED, ON DIPRIVAN. MD AWARE OF EGD RESULT. MD REVIEWED LATEST LAB VALUES, CXR AND ABG RESULT. ORDERED CHANGE IN VENT SETTINGS. WILL CLOSELY MONITOR.
--- NOTE | 2018-03-21 15:00 | NUR ---
RN NOTES CALLED DR BENOIT REGARDING CBC RESULT. HGB 7.6 FROM 8.5, HCT 23 FROM 27 PLATELET 126 FROM 155. ALSO MD AWARE THAT PT IS POSITIVE FOR MRSA NARES. PLACED ON CONTACT ISOLATION. STATED THAT IT IS NOT APPROPRIATE TO DECOLONIZE NARES. ALSO NO ORDER MADE FOR CBC RESULT. WILL CLOSELY MONITOR.
[2018-03-21 15:24] LABS: EOSINOPHILS % (AUTO) 1.9 % (0.0-6.0); HEMATOCRIT 23 % (33-45); HEMOGLOBIN 7.6 g/dL (11.5-14.8); LYMPHOCYTES # (AUTO) 0.5 /CMM (0.8-4.8); LYMPHOCYTES % (AUTO) 4.3 % (20.0-44.0); MEAN CORPUSCULAR HGB CONC 33 g/dl (31.0-36.0); MEAN CORPUSCULAR VOLUME 99 fL (82-100); MONOCYTES # (AUTO) 0.3 /CMM (0.1-1.30); MONOCYTES % (AUTO) 2.9 % (2.0-12.0); NEUTROPHILS % (AUTO) 90.9 % (43.0-81.0); PLATELET COUNT (AUTO) 126 /CMM (150-450); RDW COEFFICIENT OF VARIATION 16.9 (11.5-15.0); RED BLOOD CELL COUNT(AUTO) 2.36 MIL/uL (4.0-5.2)
[2018-03-21] MEDS: LACTOBACILLUS RHAMNOSUS GG 1 EACH CAP.SPRINK PO SCH (17:01)
[2018-03-21] MEDS ORDERED: IPRA12.9 BNOSTRILS (17:27)
[2018-03-21] MEDS ORDERED: RIVA10TA PO (17:27)
[2018-03-21] MEDS ORDERED: LACT-58 PO (17:27)
[2018-03-21] MEDS ORDERED: RIFA300C4 PO (17:27)
[2018-03-21] MEDS ORDERED: ERYT-111 PO (17:27)
[2018-03-21] MEDS ORDERED: SOTA80TA PO (17:27)
[2018-03-21] MEDS ORDERED: DEXT30SU5 PO (17:27)
[2018-03-21] MEDS ORDERED: ESOM20CA PO (17:27)
[2018-03-21] MEDS ORDERED: CHOL200026 PO (17:27)
[2018-03-21] MEDS ORDERED: LOSA50TA21 PO (17:27)
[2018-03-21] MEDS ORDERED: GUAI100S27 PO (17:27)
[2018-03-21] MEDS ORDERED: AMOX-430 PO (17:27)
[2018-03-21] MEDS ORDERED: ATOR20TA PO (17:27)
[2018-03-21] MEDS ORDERED: DIPH25CA49 PO (17:27)
[2018-03-21] MEDS ORDERED: LEVO25TA7 PO (17:27)
[2018-03-21] MEDS ORDERED: ETHA400T8 PO (17:27)
[2018-03-21] MEDS ORDERED: CLOT10TR MM (17:27)
--- NOTE | 2018-03-21 18:49 | NUR ---
RN CLOSING NOTES PT REMAINS INTUBATED, ON VENT. NO RESPIRATORY DISTRESS NOTED. HOB ELEVATED. LUIS ALBERTO PICC LINE. LEVO OFF AT THIS TIME, SBP >100. DIPRIVAN AT 50MCG/MG/MIN, TITRATED ACCORDINGLY. IVF INFUSING, TOLERATING WELL. NGT CLAMPED. FC IN PLACE. KEPT CLEAN AND DRY. REPOSITIONED Q2. TX PROVIDED ORDERED. BLE ELEVATED. WILL ENDORSE FOR CONTINUITY OF CARE.
--- NOTE | 2018-03-21 19:00 | NUR ---
Received patient orally intubated on AC mode,on sedation with Propofol drip,responds to pain,coughs when suctioned via OET ,maintained on bilateral soft wrist restraints to prevent accidental self extubation.Off Levophed now ,will resume if needed.NAHCO3 drip .PICC line via LUIS ALBERTO.OGT clamped,no feeding started.Closely monitor for any S/S of bleeding.On contact Precaution for MRSA nares.
--- NOTE | 2018-03-21 20:11 | NUR ---
RECEIVED PT INTUBATED 7.5 ETT SECURED AT 23CM AT THE LIP. PT TOLERATING VENT SETTINGS. B/S RH BILAT. SX'D FOR SML AMT OF THIN RED SECRETIONS. VENT ALARMS SET AND AUDIBLE. ETT SECURED, CUFF LIBRARY ACQUISITIONS TECHNICIAN. AMBU BAG AT BEDSIDE. VENT PLUGGED INTO RED OUTLET. WILL CONTINUE TO MONITOR. Addendum: 03/21/18 at 2014 by KOMAL BROWN RT Amended: Links added.
[2018-03-21] MEDS: ATORVASTATIN 10 MG TABLET PO SCH (21:26)
[2018-03-21 23:27] LABS: HEMATOCRIT 25 % (33-45); HEMOGLOBIN 7.9 g/dL (11.5-14.8); LYMPHOCYTES # (AUTO) 1.3 /CMM (0.8-4.8); LYMPHOCYTES % (AUTO) 8.2 % (20.0-44.0); MEAN CORPUSCULAR HGB CONC 31 g/dl (31.0-36.0); MEAN CORPUSCULAR VOLUME 99 fL (82-100); MONOCYTES # (AUTO) 1.8 /CMM (0.1-1.30); MONOCYTES % (AUTO) 11.4 % (2.0-12.0); NEUTROPHILS # (AUTO) 12.7 /CMM (1.8-8.9); NEUTROPHILS % (AUTO) 79.4 % (43.0-81.0); PLATELET COUNT (AUTO) 137 /CMM (150-450); RED BLOOD CELL COUNT(AUTO) 2.56 MIL/uL (4.0-5.2); WHITE BLOOD COUNT (AUTO) 15.9 K/uL (4.3-11.0)
[2018-03-22] VITALS (55 sets, daily range): BP systolic 96–154; BP diastolic 37–92
--- NOTE | 2018-03-22 | NUR ---
Remains stable,intubated,sedated.Propofol drip decrease as tolerated. Hgb drawn at 2200 is 7.9 from 7.6 no bleeding noted.+ cough ,grimaces to pain.
[2018-03-22] MEDS: Sodium Bicarbonate 50 MEQ in IV 1/2NS 1000 ML 1,000 ML IV PRN ×2 (00:01→15:08)
[2018-03-22] MEDS: ZOSYN IVPB 2.25 G in IV D5W 50ml IV SCH ×4 (00:01→17:05)
[2018-03-22] MEDS: VANCOMYCIN 1 GM in IV D5W 250 ML IV SCH ×2 (03:21→21:02)
[2018-03-22] MEDS: PROPOFOL 100 ML IV PRN ×3 (05:05→16:08)
[2018-03-22 06:40] LABS: BASOPHILS # (AUTO) 0.1 /CMM (0.0-0.2); BASOPHILS % (AUTO) 0.4 % (0.0-2.0); EOSINOPHILS % (AUTO) 0.9 % (0.0-6.0); HEMATOCRIT 23 % (33-45); HEMOGLOBIN 7.5 g/dL (11.5-14.8); LYMPHOCYTES # (AUTO) 1.8 /CMM (0.8-4.8); LYMPHOCYTES % (AUTO) 11.4 % (20.0-44.0); MEAN CORPUSCULAR HGB CONC 33 g/dl (31.0-36.0); MEAN CORPUSCULAR VOLUME 99 fL (82-100); MONOCYTES # (AUTO) 2.3 /CMM (0.1-1.30); MONOCYTES % (AUTO) 14.6 % (2.0-12.0); NEUTROPHILS # (AUTO) 11.6 /CMM (1.8-8.9); NEUTROPHILS % (AUTO) 72.7 % (43.0-81.0); PLATELET COUNT (AUTO) 106 /CMM (150-450); RDW COEFFICIENT OF VARIATION 17.1 (11.5-15.0); RED BLOOD CELL COUNT(AUTO) 2.28 MIL/uL (4.0-5.2)
--- NOTE | 2018-03-22 07:00 | NUR ---
Remained stable all night.Still on Propofol drip now at 35 mcg/min.. No bleeding noted.BP stable all night . Responds to pain ,with strong cough when suctioned or turned.Report given to Eliezer ROBERTS. Follow up Hgb this am.As per Dr. Mallory's notes only transfuse if Hgb is below 7,and that HIDA scan is not indicated at this time(he's cancelling the order).
[2018-03-22 07:10] LABS: CALCIUM, SERUM 7.1 mg/dL (8.5-10.1); CARBON DIOXIDE 24 mmol/L (21-32); CHLORIDE 104 mmol/L (98-107); CREATININE 1.1 mg/dL (0.6-1.3); GLUCOSE 76 mg/dL (74-106); POTASSIUM 3.4 mmol/L (3.5-5.1); SODIUM SERUM 137 mmol/L (136-145); UREA NITROGEN, BLOOD 20 mg/dL (7-18)
--- NOTE | 2018-03-22 07:31 | NUR ---
RT PATIENT REC'D ORALLY INTUBATED ON [facility] VENT WITH SETTING SET BY . VENT ALARMS CHECKED + AUDIBLE. CUFF PRESSURE CHECKED QUANTITATIVE STRATEGY ANALYST. SUCTIONED AIRWAY WITH SMALL/MOD AMT OF HUERTA SEMITHICK SECRETIONS. B/S DIM. PATIENT IN CRITICAL CONDITION. AMBU BAG AT HOB. Addendum: 03/22/18 at 0732 by KEENA WERNER RT Amended: Links added.
--- NOTE | 2018-03-22 08:20 | NUR ---
received pt from shift lab technician, sedated on Diprivan at 35mcg, SR, bicarb drip, intubated, on the vent, lungs congested, no edema, NPO, f/c good output, R NG clamped, restraints on, no active bleeding noted, v/s stable, no pain, pt turned and repositioned.
[2018-03-22] MEDS: SOTALOL HCL 80 MG TABLET PO SCH ×2 (08:38→16:04)
[2018-03-22] MEDS: LACTOBACILLUS RHAMNOSUS GG 1 EACH CAP.SPRINK PO SCH ×2 (08:38→16:04)
[2018-03-22] MEDS: Z GUARD REMEDY 2 OZ OINT TP SCH (08:39)
[2018-03-22] MEDS: PANTOPRAZOLE 40 MG VIAL IV SCH ×2 (09:07→21:01)
[2018-03-22] MEDS: methylPREDNISolone SOD SUCC 40 MG/ML VIAL IV SCH ×3 (10:13→16:04)
[2018-03-22] MEDS: POTASSIUM CL. PREMIX PERIPHER. 50 ML IV SCH ×2 (11:20→12:11)
--- NOTE | 2018-03-22 12:07 | NUR ---
pt is resting in the bed, v/s stable, no pain, pt turned and repositioned q2hrs.
--- NOTE | 2018-03-22 16:14 | NUR ---
pt is resting in the bed, sedated on Diprivan at 40mcg, v/s stable, no pain, pt cleaned, changed and repositioned q2hrs.
[2018-03-22] MEDS ORDERED: DEXTROSE 50%-WATER 50 ML DISP.SYRIN IV PRN (17:00)
[2018-03-22] MEDS: BLOOD SUGAR DIAGNOSTIC 1 EACH STRIP IN SCH (17:17)
--- NOTE | 2018-03-22 19:00 | NUR ---
Recieved patient on the ventilator on AC mode,sedated on Propofol drip but responds to deep deep pain,with strong cough and gag,grimaces and withdraws to pain.Not in any distress ,breathing regular,non labored.PICC line @ LUIS ALBERTO with all ports with good blood return.OGT clamped for meds,( will follow up with feeding).Comfort vare done,needs attended.On bilateral soft wrist restraints to prevent accidental self extubation.Aspiration precaution observed ,HOB elevated.
[2018-03-22] MEDS: ATORVASTATIN 10 MG TABLET PO SCH (21:02)
[2018-03-23] VITALS (55 sets, daily range): BP systolic 77–160; BP diastolic 42–90
--- NOTE | 2018-03-23 | NUR ---
Status unchanged,noted to be bradycardic tonight HR in the 50's.BP stable.Will closely monitor for S/S of decompensation. Tolerating vent settings ,No SOB ,[id number]%.Remains sedated but responsive to pain.
[2018-03-23] MEDS: PROPOFOL 100 ML IV PRN ×3 (00:26→16:12)
[2018-03-23] MEDS: ZOSYN IVPB 2.25 G in IV D5W 50ml IV SCH ×5 (00:48→23:58)
[2018-03-23 04:26] LABS: EOSINOPHILS % (AUTO) 0.1 % (0.0-6.0); HEMATOCRIT 23 % (33-45); HEMOGLOBIN 7.3 g/dL (11.5-14.8); LYMPHOCYTES # (AUTO) 0.5 /CMM (0.8-4.8); LYMPHOCYTES % (AUTO) 7.2 % (20.0-44.0); MEAN CORPUSCULAR HGB CONC 32 g/dl (31.0-36.0); MEAN CORPUSCULAR VOLUME 100 fL (82-100); MONOCYTES # (AUTO) 0.3 /CMM (0.1-1.30); MONOCYTES % (AUTO) 4.1 % (2.0-12.0); NEUTROPHILS # (AUTO) 5.9 /CMM (1.8-8.9); NEUTROPHILS % (AUTO) 88.6 % (43.0-81.0); PLATELET COUNT (AUTO) 100 /CMM (150-450); RDW COEFFICIENT OF VARIATION 16.7 (11.5-15.0); RED BLOOD CELL COUNT(AUTO) 2.28 MIL/uL (4.0-5.2); WHITE BLOOD COUNT (AUTO) 6.7 K/uL (4.3-11.0)
[2018-03-23 04:39] LABS: CALCIUM, SERUM 7.5 mg/dL (8.5-10.1); CARBON DIOXIDE 27 mmol/L (21-32); CHLORIDE 102 mmol/L (98-107); GLUCOSE 116 mg/dL (74-106); POTASSIUM 3.5 mmol/L (3.5-5.1); SODIUM SERUM 137 mmol/L (136-145); UREA NITROGEN, BLOOD 20 mg/dL (7-18)
[2018-03-23 05:45] LABS: BAND % (MANUAL) 10 % (0.0-5.0); LYMPHOCYTES % (MANUAL) 6 % (16-48); MONOCYTES % (MANUAL) 6 % (0-11.0); NEUTROPHILS % (MANUAL) 78 (42-76)
[2018-03-23] MEDS: BLOOD SUGAR DIAGNOSTIC 1 EACH STRIP IN SCH ×5 (06:02→23:58)
--- NOTE | 2018-03-23 06:50 | NUR ---
Sent message to to obtain 12 lead EKG ,made him aware that patient's HR is consistently in the 50's all night ,asymptomatic with stable BP,but by reviewing QT interval in one lead via monitor seems prolonged from .45-.50 .and asked him if we can hold the Sotalo dose this am. 0655 texted back and he agreed to doing 12 lead EKG and holding the Sotalol dose. 0700 Repport given to dayshift ALEJANDRA Martins.Patient stable ,still on Propofol drip,on the ventilator ,responds to pain.
--- NOTE | 2018-03-23 07:58 | NUR ---
RT PT RECEIVED ORALLY INTUBATED WITH A 7.5 ETT SECURED AT 23CM AT THE LIP LINE. PT RESPONDS TO STIMULI WHEN SX'D. PT IS ON THE VENT WITH NOTED SETTINGS. VENT ALARMS ARE SET AND AUDIBLE WITH BVM BY BEDSIDE. ASSISTANT SIGNAL MAINTAINER CUFF PRESSURE NOTED. VENT IS PLUGGED INTO RED OUTLET. PT SX'D MODERATE DARK BLOOD TINGED THICK SECRETIONS. NO RESPIRATORY DISTRESS NOTED AT THIS TIME, WILL CONTINUE TO MONITOR. Addendum: 03/23/18 at 0848 by STEPH KAPOOR RT Amended: Links added.
[2018-03-23] MEDS: Sodium Bicarbonate 50 MEQ in IV 1/2NS 1000 ML 1,000 ML IV PRN ×2 (08:04→21:35)
--- NOTE | 2018-03-23 08:13 | NUR ---
received pt from night, shift, sedated on Diprivan at 35mcg, SB, on the vent, intubated, lungs congested, no edema, on bicarb drip, NPO, restraints on, f/c low output, will notify , v/s stable, no pain, pt turned and repositioned.
[2018-03-23] MEDS: LACTOBACILLUS RHAMNOSUS GG 1 EACH CAP.SPRINK PO SCH ×2 (08:52→17:02)
[2018-03-23] MEDS: PANTOPRAZOLE 40 MG VIAL IV SCH ×2 (08:52→20:32)
[2018-03-23] MEDS: methylPREDNISolone SOD SUCC 40 MG/ML VIAL IV SCH ×3 (08:52→17:02)
[2018-03-23] MEDS: Z GUARD REMEDY 2 OZ OINT TP SCH (08:53)
[2018-03-23] MEDS: SOTALOL HCL 80 MG TABLET PO SCH ×2 (08:53→17:00)
--- NOTE | 2018-03-23 12:00 | NUR ---
BS 60, D50 given
--- NOTE | 2018-03-23 12:22 | NUR ---
pt is resting in in the bed, v/s stable, no pain, started on feeding, pt turned and repositioned q2hrs.
[2018-03-23] MEDS ORDERED: JEVITY 1.2 CAL 1,000 ML BOTTLE GT PRN (13:00)
[2018-03-23] MEDS: VANCOMYCIN 1 GM in IV D5W 250 ML IV SCH (14:34)
--- NOTE | 2018-03-23 16:08 | NUR ---
pt is resting in the bed, sedated on Diprivan at 35mcg, on the vent, 50% fio2, tolerates feeding, v/s stable, no pain, pt cleaned, changed and repositioned q2hrs.
--- NOTE | 2018-03-23 20:00 | NUR ---
GAS LINE INSTALLER - NOTES - Received patient on the ventilator on AC mode,sedated on Propofol drip 35 MCG but responds to deep deep pain, with strong cough and gag, grimaces and withdraws to pain. Not in any distress , breathing regular, non labored. PICC line @ LUIS ALBERTO with all ports with good blood return. OGT with feeding JEVITY @ 30 ML/HR 60ML RESIDUALS. Care done, needs attended. On bilateral soft wrist restraints to prevent accidental self extubation. Aspiration precaution observed, HOB elevated.
[2018-03-23] MEDS: ATORVASTATIN 10 MG TABLET PO SCH (21:35)
[2018-03-24] VITALS (59 sets, daily range): BP systolic 94–160; BP diastolic 50–91
[2018-03-24] MEDS: PROPOFOL 100 ML IV PRN ×3 (02:16→18:31)
[2018-03-24 04:40] LABS: BASOPHILS % (AUTO) 0.1 % (0.0-2.0); EOSINOPHILS % (AUTO) 0.2 % (0.0-6.0); HEMATOCRIT 26 % (33-45); HEMOGLOBIN 8.5 g/dL (11.5-14.8); LYMPHOCYTES # (AUTO) 0.5 /CMM (0.8-4.8); LYMPHOCYTES % (AUTO) 4.6 % (20.0-44.0); MEAN CORPUSCULAR HGB CONC 33 g/dl (31.0-36.0); MEAN CORPUSCULAR VOLUME 101 fL (82-100); MONOCYTES # (AUTO) 0.4 /CMM (0.1-1.30); MONOCYTES % (AUTO) 4.1 % (2.0-12.0); NEUTROPHILS # (AUTO) 9.8 /CMM (1.8-8.9); PLATELET COUNT (AUTO) 102 /CMM (150-450); RDW COEFFICIENT OF VARIATION 16.4 (11.5-15.0); RED BLOOD CELL COUNT(AUTO) 2.58 MIL/uL (4.0-5.2); WHITE BLOOD COUNT (AUTO) 10.8 K/uL (4.3-11.0)
[2018-03-24 04:47] LABS: CALCIUM, SERUM 7.1 mg/dL (8.5-10.1); CARBON DIOXIDE 30 mmol/L (21-32); CHLORIDE 103 mmol/L (98-107); GLUCOSE 122 mg/dL (74-106); POTASSIUM 3.1 mmol/L (3.5-5.1); SODIUM SERUM 138 mmol/L (136-145); UREA NITROGEN, BLOOD 21 mg/dL (7-18)
--- NOTE | 2018-03-24 05:25 | NUR ---
PT RECEIVED ORALLY INTUBATED WITH A 7.5 ETT SECURED AT 23CM AT THE LIP LINE. PT RESPONDS TO STIMULI WHEN SX'D. PT IS ON THE VENT WITH NOTED SETTINGS. VENT ALARMS ARE SET AND AUDIBLE WITH BVM BY BEDSIDE. PROCESSING ENGINEER CUFF PRESSURE NOTED. VENT IS PLUGGED INTO RED OUTLET. PT SX'D MODERATE DARK BLOOD TINGED THICK SECRETIONS. NO RESPIRATORY DISTRESS NOTED AT THIS TIME, WILL CONTINUE TO MONITOR.
[2018-03-24 05:51] LABS: LYMPHOCYTES % (MANUAL) 6 % (16-48); MONOCYTES % (MANUAL) 3 % (0-11.0); NEUTROPHILS % (MANUAL) 91 (42-76)
[2018-03-24] MEDS: BLOOD SUGAR DIAGNOSTIC 1 EACH STRIP IN SCH ×3 (05:52→17:52)
[2018-03-24] MEDS: ZOSYN IVPB 2.25 G in IV D5W 50ml IV SCH ×3 (05:53→17:52)
--- NOTE | 2018-03-24 08:00 | NUR ---
PROJECT DEVELOPER: pt.is sedated with Diprivan 35 mcg/kg/min, on wrists restraints, reactive by touch, strong coughing reaction, arms activity with suction, able to move legs up, increased sedation to 40mcg, no grimacing now, SR/SB, HR 55-62 over night, Sotalol was not given since yesterday/hold, SBP over 100, O2 sat. over 94%, FiO2 50%, getting 50meq Bicarb 1/2NS IVF, last ABG done on 03/21, K+3.1, will speak with MD, pharmacy, NGTF residual 15 ml, H/H 8.12/09, no external bleeding by report, sacral DTI/w/c done by report
--- NOTE | 2018-03-24 08:30 | NUR ---
JAVA WEB APPLICATION DEVELOPER: pt.son called, updated with pt.current condition, VS, POC, hold sedation vacation now, waiting MDs for ?ABG, Bicarb IVF, Sotalol, vent.setting, K+3.1
[2018-03-24] MEDS: SOTALOL HCL 80 MG TABLET PO SCH ×2 (09:00→17:16)
[2018-03-24] MEDS: PANTOPRAZOLE 40 MG VIAL IV SCH ×2 (09:29→20:09)
[2018-03-24] MEDS: LACTOBACILLUS RHAMNOSUS GG 1 EACH CAP.SPRINK PO SCH ×2 (09:29→17:02)
[2018-03-24] MEDS: VANCOMYCIN 1 GM in IV D5W 250 ML IV SCH (09:29)
[2018-03-24] MEDS: methylPREDNISolone SOD SUCC 40 MG/ML VIAL IV SCH ×3 (09:29→17:03)
[2018-03-24] MEDS: Z GUARD REMEDY 2 OZ OINT TP SCH (09:30)
--- NOTE | 2018-03-24 09:55 | NUR ---
NIGHT CLEANER: is in room, updated with all above, pt.current condition, sedation level, O2sat., vent.setting, FiO2 50%, suction amount with old bloody secretion, VS, I/O, IVF 1/2NS with 50meq Bicarb, NGTF, K+3.1, H/H, SB over night and HR 60-70 now, said: hold sedation vacation until ABG, CXR will be done, confirmed to hold Sotalol, ordered: ABG, CXR now, K+ 40meq x one PO
[2018-03-24] MEDS ORDERED: POTASSIUM CHLORIDE 20 MEQ POWDER PACKET GT ONE (10:30)
--- NOTE | 2018-03-24 10:30 | NUR ---
PAIN MANAGEMENT PHYSICIAN: AB.52 pO2 68, pCO2 34, HCO3 27, was notified re ABG result, vent setting, IVF, no new order now
[2018-03-24 10:31] LABS: ABG BASE EXCESS 4.8 mmol/L; ABG OXYGEN SATURATION 92.7 % (92.0-98.5); ABG PCO2 34.2 mmHg (35.0-45.0); ABG PH 7.524 (7.350-7.450); ABG PO2 68.3 mmHg (75.0-100.0); AaDO2 249.7 mmHg; COHb 0.3 % (0.5-1.5); MetHb 0.8 % (0.0-1.5); O2Hb 91.7 % (94.0-97.0); PEEP,BG 5 cm H2O; SITE, ABG Right Radial; VT, ABG 450 mL
--- NOTE | 2018-03-24 10:45 | NUR ---
FINANCIAL INVESTMENT ADVISER: pt.jessica Monique is in room, notified re pt.current condition, VS, sedation level/hold vacation for today per MD, orders, lab results, POC, fire manager visit
[2018-03-24] MEDS: Sodium Bicarbonate 50 MEQ in IV 1/2NS 1000 ML 1,000 ML IV PRN (13:49)
--- NOTE | 2018-03-24 16:13 | NUR ---
RT NOTE: PATIENT RECEIVED ORALLY INTUBATED WITH 7.5 ETT SECURED @ 23CM ON ESPRIT VENT. ETT MOVED FROM RIGHT TO LEFT SIDE VIA ANCHOR FAST. VENT ALARMS VERIFIED AND AUDIBLE. SUCTIONED AND LAVAGED THICK HUERTA/BROWN/BLOOD TINGED SECRETIONS. AMBU BAG AT [facility].
--- NOTE | 2018-03-24 17:00 | NUR ---
SENIOR SITE MANAGER: is in room, updated with pt.current status, VS, SB episodes with PVCs, sedation level/hold vacation today by , GTF, I/O, H/H, ABG: pH 7.52, pO2 68, pCO2 34, bicarb 27, vent.setting, ETT suction amount with old blood, K+3.1 and 40meq K+ PO x one replacement order by , BMx1/no melena, wound, labs, meds, ordered: stop IVF with Bicarb, gradually increase GTF/goal 50ml/h, gave parameters for Sotalol: hold if HR below 55
[2018-03-24] MEDS: INSULIN REGULAR, HUMAN 100 UNIT/ML 3 ML VIAL SQ PRN ×2 (17:55)
--- NOTE | 2018-03-24 18:24 | NUR ---
JACQUARD LOOM WEAVER: all PM/skin/wound care done f/u orders, pt.is suctioned well/lavage given x3 per shift, still secretion with old blood, Shavonne/KATARINA was in room/updated with all above, agree for NGTF 50ml goal
--- NOTE | 2018-03-24 20:50 | NUR ---
RECEIVED PT INTUBATED 7.5 ETT SECURED AT 23CM AT THE LIP. PT TOLERATING VENT SETTINGS. SX'D FOR MOD AMT OF THICK RED SECRETIONS. VENT ALARMS SET AND AUDIBLE. ETT SECURED, CUFF REAL ESTATE CLERK. AMBU BAG AT BEDSIDE. VENT PLUGGED INTO RED OUTLET. WILL CONTINUE TO MONITOR. Addendum: 03/24/18 at 2050 by KOMAL BROWN RT Amended: Links added.
[2018-03-24] MEDS: ATORVASTATIN 10 MG TABLET PO SCH (22:00)
[2018-03-24] MEDS: JEVITY 1.2 CAL 1,000 ML BOTTLE GT PRN (22:03)
[2018-03-25] VITALS (51 sets, daily range): BP systolic 93–151; BP diastolic 51–85
[2018-03-25] MEDS: BLOOD SUGAR DIAGNOSTIC 1 EACH STRIP IN SCH ×5 (00:16→23:36)
[2018-03-25] MEDS: ZOSYN IVPB 2.25 G in IV D5W 50ml IV SCH ×5 (00:18→23:14)
[2018-03-25] MEDS: VANCOMYCIN 1 GM in IV D5W 250 ML IV SCH ×2 (02:58→20:17)
[2018-03-25] MEDS: PROPOFOL 100 ML IV PRN ×4 (03:43→23:14)
[2018-03-25 04:14] LABS: BASOPHILS % (AUTO) 0.1 % (0.0-2.0); HEMATOCRIT 26 % (33-45); HEMOGLOBIN 8.3 g/dL (11.5-14.8); LYMPHOCYTES # (AUTO) 1.2 /CMM (0.8-4.8); LYMPHOCYTES % (AUTO) 14.6 % (20.0-44.0); MEAN CORPUSCULAR HGB CONC 32 g/dl (31.0-36.0); MEAN CORPUSCULAR VOLUME 100 fL (82-100); MONOCYTES # (AUTO) 0.3 /CMM (0.1-1.30); MONOCYTES % (AUTO) 3.5 % (2.0-12.0); NEUTROPHILS # (AUTO) 6.7 /CMM (1.8-8.9); NEUTROPHILS % (AUTO) 80.8 % (43.0-81.0); PLATELET COUNT (AUTO) 101 /CMM (150-450); RDW COEFFICIENT OF VARIATION 16.6 (11.5-15.0); RED BLOOD CELL COUNT(AUTO) 2.57 MIL/uL (4.0-5.2); WHITE BLOOD COUNT (AUTO) 8.3 K/uL (4.3-11.0)
[2018-03-25 04:24] LABS: CALCIUM, SERUM 7.2 mg/dL (8.5-10.1); CARBON DIOXIDE 30 mmol/L (21-32); CHLORIDE 109 mmol/L (98-107); CREATININE 0.8 mg/dL (0.6-1.3); GLUCOSE 110 mg/dL (74-106); POTASSIUM 3.6 mmol/L (3.5-5.1); SODIUM SERUM 144 mmol/L (136-145); UREA NITROGEN, BLOOD 18 mg/dL (7-18)
--- NOTE | 2018-03-25 08:47 | NUR ---
DECREASED FIO2 FROM 50% TO 40% ORDER. Addendum: 03/25/18 at 0848 by KERMIT POTTS RT Amended: Links added.
[2018-03-25] MEDS: methylPREDNISolone SOD SUCC 40 MG/ML VIAL IV SCH ×3 (08:55→17:15)
[2018-03-25] MEDS: PANTOPRAZOLE 40 MG VIAL IV SCH ×2 (08:55→20:17)
[2018-03-25] MEDS: LACTOBACILLUS RHAMNOSUS GG 1 EACH CAP.SPRINK PO SCH ×2 (08:56→17:15)
[2018-03-25] MEDS: Z GUARD REMEDY 2 OZ OINT TP SCH (08:56)
[2018-03-25] MEDS: SOTALOL HCL 80 MG TABLET PO SCH ×2 (08:58→17:18)
--- NOTE | 2018-03-25 12:45 | NUR ---
RN NOTE 0720: Received patient sedated. With ETT to vent, tolerated settings, no respiratory distress noted at this time. With right NGT intact, feeding tolerated. Noted with 30mL residuals. With Hook cath intact, noted with ankur colored urine drained to BSD. With MEDICAL INTERN restraints for safety. On isolation precaution for MRSA nares, maintained and observed. SR with PACs and PVCs on the monitor. LUIS ALBERTO PICC intact. On Diprivan @ 80. 0800: S/E by Dr. Krishnamurthy, with order to reduce FIO2 from 50% to 40%. Will continue to monitor. No weaning for now per MD. 1000: Rendered sedation vacation, only able to go down on Diprivan @ 20, noted with RR 39-40. Able to arouse but does not follow commands, noted agitation only as evidenced by moving extremities frequently. 1130: S/E by Dr. Mallory, no new order at this time, said he will restart Xarelto, aware for brownish secretions when suctioning ETT. 1200: Daughter visited, aware for the POC. 1245: No any significant changes noted at this time.
[2018-03-25] MEDS: RIVAROXABAN 15 MG TABLET NG SCH (17:16)
[2018-03-25] MEDS: INSULIN REGULAR, HUMAN 100 UNIT/ML 3 ML VIAL SQ PRN (17:40)
--- NOTE | 2018-03-25 18:14 | NUR ---
RN NOTE No any significant changes noted. Kept clean, warm and dry. Needs attended. Iso prec maintained and observed.
--- NOTE | 2018-03-25 20:00 | NUR ---
CURRICULUM COUNSELOR - NOTES - Received patient on the ventilator on AC mode,sedated on Propofol drip 40 MCG but responds to deep deep pain, with strong cough and gag, grimaces and withdraws to pain. Not in any distress , breathing regular, non labored. PICC line @ LUIS ALBERTO with all ports with good blood return. OGT with feeding JEVITY @ 50 ML/HR, 40ML RESIDUALS. Care done, needs attended. On bilateral soft wrist restraints to prevent accidental self extubation. Aspiration precaution observed, HOB elevated.
--- NOTE | 2018-03-25 20:15 | NUR ---
RECEIVED PT INTUBATED 7.5 ETT SECURED AT 23CM AT THE LIP. PT TOLERATING VENT SETTINGS. SX'D FOR MOD AMT OF THICK RED SECRETIONS. VENT ALARMS SET AND AUDIBLE. ETT SECURED, CUFF AIR EXPORT AGENT. AMBU BAG AT BEDSIDE. VENT PLUGGED INTO RED OUTLET. WILL CONTINUE TO MONITOR. Addendum: 03/25/18 at 2015 by KOMAL BROWN RT Amended: Links added.
--- NOTE | 2018-03-25 21:01 | NUR ---
PT HAD EPISODE OF SINUS TACHYCARDIA 130S FOR APPROX 3 MINS, THEN WENT BACK TO NSR 70S, THEN APPROX 15 MINS LATER HAD AN EPISODE OF AFIB 120S FOR APPROX 3 MINS THEN CONVERTED BACK TO NSR 70S. DR BENOIT NOTIFIED
[2018-03-25] MEDS: ATORVASTATIN 10 MG TABLET PO SCH (21:18)
[2018-03-26] VITALS (61 sets, daily range): BP systolic 80–144; BP diastolic 50–89
[2018-03-26 04:34] LABS: HEMATOCRIT 29 % (33-45); HEMOGLOBIN 9.3 g/dL (11.5-14.8); MEAN CORPUSCULAR HGB CONC 33 g/dl (31.0-36.0); MEAN CORPUSCULAR VOLUME 100 fL (82-100); PLATELET COUNT (AUTO) 125 /CMM (150-450); RDW COEFFICIENT OF VARIATION 17.1 (11.5-15.0); RED BLOOD CELL COUNT(AUTO) 2.85 MIL/uL (4.0-5.2); WHITE BLOOD COUNT (AUTO) 10.7 K/uL (4.3-11.0)
[2018-03-26 04:41] LABS: CALCIUM, SERUM 7.5 mg/dL (8.5-10.1); CARBON DIOXIDE 28 mmol/L (21-32); CHLORIDE 104 mmol/L (98-107); CREATININE 0.8 mg/dL (0.6-1.3); GLUCOSE 77 mg/dL (74-106); POTASSIUM 3.5 mmol/L (3.5-5.1); SODIUM SERUM 139 mmol/L (136-145); UREA NITROGEN, BLOOD 25 mg/dL (7-18)
[2018-03-26 05:03] LABS: EOSINOPHILS % (MANUAL) 1 % (0-4); LYMPHOCYTES % (MANUAL) 13 % (16-48); MONOCYTES % (MANUAL) 4 % (0-11.0); NEUTROPHILS % (MANUAL) 82 (42-76)
[2018-03-26] MEDS: BLOOD SUGAR DIAGNOSTIC 1 EACH STRIP IN SCH ×2 (06:32→12:48)
[2018-03-26] MEDS: JEVITY 1.2 CAL 1,000 ML BOTTLE GT PRN (06:32)
[2018-03-26] MEDS: ZOSYN IVPB 2.25 G in IV D5W 50ml IV SCH ×4 (06:33→23:19)
--- NOTE | 2018-03-26 07:43 | NUR ---
INITIAL CIRCUS ARTIST NOTE RCVD PT SEDATED, INTUBATED TOLERATING ORDERED VENT SETTING WELL ETT 7.5 23 AT LIP, WITH BROWN, THICK SECRETIONS, SR ON TELE W/OCCASIONAL PACs. NG-TUBE PLACEMENT VERIFIED BY AUSCULTATION/ASPIRATION. MINIMAL RESIDUAL OBTAINED. BHANDARI TO GRAVITY DRAINING CLEAR, YELLOW URINE. LUIS ALBERTO PICC C/D/I/PATENT. NO S/O INFILTRATION/PHLEBITIS OBSERVED UPON FLUSHING. DIPRIVAN INFUSING AND TITRATED ORDERED. WILL CONTINUE TO MONITOR PT FOR SAFETY AND COMFORT. BED IN LOW AND LOCKED POSITION.
[2018-03-26] MEDS: PROPOFOL 100 ML IV PRN ×3 (07:47→23:41)
[2018-03-26] MEDS: PANTOPRAZOLE 40 MG VIAL IV SCH ×2 (08:50→20:10)
[2018-03-26] MEDS: methylPREDNISolone SOD SUCC 40 MG/ML VIAL IV SCH ×2 (08:50→12:18)
[2018-03-26] MEDS: LACTOBACILLUS RHAMNOSUS GG 1 EACH CAP.SPRINK PO SCH ×2 (08:50→17:25)
[2018-03-26] MEDS: SOTALOL HCL 80 MG TABLET PO SCH ×2 (08:51→17:25)
[2018-03-26] MEDS: Z GUARD REMEDY 2 OZ OINT TP SCH (08:52)
--- NOTE | 2018-03-26 10:45 | NUR ---
SEDATION VACATION PT TITRATED OFF DIPRIVAN, PT'S DAUGHTER, BRANDI AT BEDSIDE. PT ABLE TO FOLLOW SIMPLE COMMANDS SUCH OPEN EYES, STICK TONGUE OUT AND SQUEEZE FINGERS WITH LEFT HAND. PT ABLE TO MOVE BLE ON COMMAND. NO PLAN FOR WEANING AT THIS TIME PER DR. VAZ, JULIA DRAWN WILL CONTINUE TO MONITOR.
[2018-03-26 10:47] LABS: ABG BASE EXCESS 2.9 mmol/L; ABG OXYGEN SATURATION 92.4 % (92.0-98.5); ABG PCO2 31.9 mmHg (35.0-45.0); ABG PO2 65.9 mmHg (75.0-100.0); AaDO2 182.6 mmHg; COHb 0.3 % (0.5-1.5); MetHb 0.8 % (0.0-1.5); O2Hb 91.4 % (94.0-97.0); PEEP,BG 5 cm H2O; SITE, ABG Left Radial; VT, ABG 450 mL
[2018-03-26] MEDS: INSULIN REGULAR, HUMAN 100 UNIT/ML 3 ML VIAL SQ PRN (12:49)
[2018-03-26] MEDS: VANCOMYCIN 1 GM in IV D5W 250 ML IV SCH (15:42)
[2018-03-26] MEDS: RIVAROXABAN 15 MG TABLET NG SCH (17:26)
--- NOTE | 2018-03-26 18:31 | NUR ---
RISK ASSESSMENT CONSULTANT NOTE PT REMAINS STABLE ON THE VENT INTUBATED, SEDATED, SR ON TELE. BILATERAL SOFT WRIST RESTRAINTS IN PLACE. CIRCULATION CHECKS DONE. RIGHT NG TUBE PLACEMENT VERIFIED BY AUSCULTATION/ASPIRATION. BHANDARI TO GRAVITY DRAINING CLEAR, YELLOW URINE. LUIS ALBERTO PICC C/D/I/PATENT. NO S/O INFILTRATION/PHLEBITIS OBSERVED IVF AND DIPRIVAN INFUSING. TOLERATING TUBE FEEDING WELL. ACCU-CHECKS DISCONTINUED PER DR. BENOIT. PT'S CARE WILL BE ENDORSED TO DATA CENTER OPERATOR RN FOR CONTINUITY OF CARE. BED IN LOW AND LOCKED POSITION.
--- NOTE | 2018-03-26 19:57 | NUR ---
pt received on vent via ett with charted settings. airway patent. secure via anchor fast. ambu bag at bedside. alarms set and audible, disconnect alarms checked plugged into red outlet suctioned a small amount of thin white secretions. pt hob at 30 degrees. suctioned oral secretion from pts mouth Addendum: 03/26/18 at 8 by CHLOE STINSON RT Amended: Links added.
--- NOTE | 2018-03-26 20:00 | NUR ---
MARKETING COMMUNICATIONS ASSOCIATE - NOTES - Received patient on the ventilator on AC mode,sedated on Propofol drip 40 MCG but responds to deep deep pain, with strong cough and gag, grimaces and withdraws to pain. Not in any distress , breathing regular, non labored. PICC line @ LUIS ALBERTO with all ports with good blood return. OGT with feeding JEVITY @ 50 ML/HR. Care done, needs attended. On bilateral soft wrist restraints to prevent accidental self extubation. Aspiration precaution observed, HOB elevated.
[2018-03-26] MEDS: ATORVASTATIN 10 MG TABLET PO SCH (21:44)
[2018-03-27] VITALS (54 sets, daily range): BP systolic 71–156; BP diastolic 38–75
[2018-03-27] MEDS: JEVITY 1.2 CAL 1,000 ML BOTTLE GT PRN (02:39)
[2018-03-27 05:11] LABS: CALCIUM, SERUM 7.4 mg/dL (8.5-10.1); CARBON DIOXIDE 29 mmol/L (21-32); CHLORIDE 106 mmol/L (98-107); CREATININE 0.8 mg/dL (0.6-1.3); GLUCOSE 74 mg/dL (74-106); POTASSIUM 3.8 mmol/L (3.5-5.1); SODIUM SERUM 140 mmol/L (136-145); UREA NITROGEN, BLOOD 26 mg/dL (7-18)
[2018-03-27 05:12] LABS: BILIRUBIN,DIRECT 0.5 mg/dL (0.0-0.2)
[2018-03-27] MEDS: ZOSYN IVPB 2.25 G in IV D5W 50ml IV SCH ×4 (05:21→23:49)
--- NOTE | 2018-03-27 07:05 | NUR ---
RN NOTES RECEIVED PT ON BED, INTUBATED, ON VENTILATOR , AC MODE, SEDATED, PROPOFOL GTT AT 40 MCG/KG/MIN RUNNING VIA R UPPER ARM PICC LINE , SITE CLEAN, DRY AND INTACT, ON TELE SR WITH PVC'S HR IN 60'S , GEVITY AT 50CC/HR RUNNING VIA NGT , TOLERATING WELL, NO RESIDUAL NOTED, HOB ELEVATED , BILATERAL SOFT WRIST RESTRAINTS ON FOR SAFETY PRECAUTIONS , SR UP x3, BED LOCKED AND IN LOWEST POSITION, CONTINUE TO MONITOR PT CLOSELY AND NOTIFYING MD FOR ANY SIGNIFICANT CHANGES.
--- NOTE | 2018-03-27 07:55 | NUR ---
RT PT RECEIVED ORALLY INTUBATED WITH A 7.5 ETT SECURED AT 24CM AT THE LIP LINE, PT IS ON THE VENT WITH NOTED SETTINGS. PT IS NOT AWAKE AT THIS TIME BUT RESPONDS TO STIMULI WHEN SX'D. VENT ALARMS ARE SET AND AUDIBLE WITH BVM BY BEDSIDE. MACHINE OPERATOR GENERAL CUFF PRESSURE NOTED. VENT IS PLUGGED INTO RED OUTLET. SX'D SMALL THIN PALE YELLOW SECRETIONS. NO RESPIRATORY DISTRESS NOTED AT THIS TIME, WILL CONTINUE TO MONITOR. Addendum: 03/27/18 at 0931 by STEPH KAPOOR RT Amended: Links added.
--- NOTE | 2018-03-27 08:39 | NUR ---
RN NOTES REPORT GIVEN TO JANNETTE FOR CONTINUITY OF CARE .
--- NOTE | 2018-03-27 08:45 | NUR ---
CHAIR POST MACHINE OPERATOR NOTE RECEIVED PATIENT IN BED , WITH ETT TO VENT SETTING ORDERED , AMBU BAG AT HOB AT ALL TIME ON N GTUBE FEEDING ORDERED NO RESIDUAL NOTED WILL CONT TO MONITOR ON DIPRIVAN DRIP ORDERED
[2018-03-27] MEDS: LACTOBACILLUS RHAMNOSUS GG 1 EACH CAP.SPRINK PO SCH ×2 (08:54→16:52)
[2018-03-27] MEDS: PANTOPRAZOLE 40 MG VIAL IV SCH ×2 (08:55→21:46)
[2018-03-27] MEDS: SOTALOL HCL 80 MG TABLET PO SCH ×2 (08:56→16:54)
[2018-03-27] MEDS: Z GUARD REMEDY 2 OZ OINT TP SCH (08:58)
[2018-03-27] MEDS: VANCOMYCIN 1 GM in IV D5W 250 ML IV SCH (09:18)
--- NOTE | 2018-03-27 09:18 | NUR ---
CREDIT PRODUCTS OFFICER NOTE STARTED SLOWLY DECREASE DIPRIVAN DRIP FOR DIPRIVAN VOCATION, WILL MONITOR CLOSELY
--- NOTE | 2018-03-27 10:10 | NUR ---
SEO MANAGER NOTE DIPRIVAN DRIP HELD AT THIS TIME ,ON DIPRIVAN VOCATION .PATIENT BECOME MORE AWAKE , AND FOLLOW SOME COMMAND , ABLE TO UP BOTH EYEBROWS AND SQUEEZE BOTH HANDS , RESPONSE TO TACTILE AND VERBAL STIMULI, ABLE TO MOVE LOWER EXTREMITIES WILL F\U
--- NOTE | 2018-03-27 11:41 | NUR ---
FUR GLOSSER NOTE BACK TO PEPITO MACHUCA ORDERED ,PATIENT BECOME MORE SEVERE AGITATED, WILL MONITOR CLOSELY
[2018-03-27] MEDS: PROPOFOL 100 ML IV PRN ×2 (12:32→21:52)
--- NOTE | 2018-03-27 14:00 | NUR ---
ELEMENTARY SCHOOL TEACHER'S AIDE NOTE ORAL CARE DONE, KEEP CLEAN DRY , CONT ON DIPRIVAN DRIP ORDERED, UNABLE TO RELEASE SOFT RESTRAIN ,AT RISK TO REMOVE ALL LINES, WILL CONT TO MONITOR CLOSELY Addendum: 03/27/18 at 1449 by JANNETTE SANON RN DR THAKKAR AT BEDSIDE, AWARE THAT DURING DIPRIVAN VOCATION PATIENT NOT COMPLETELY AWAKE STILL DROWSY AND PARTIALLY UNDERSTANDS SIMPLE COMMAND
--- NOTE | 2018-03-27 15:43 | NUR ---
NUMBERER AND WIRER NOTE PER DR THAKKAR VENT SETTING CHANGED BY RT TO TV 400 ,WILL MONITOR CLOSELY
[2018-03-27] MEDS: RIVAROXABAN 15 MG TABLET NG SCH (16:53)
--- NOTE | 2018-03-27 16:59 | NUR ---
FAMILY AND CONSUMER EDUCATION TEACHER NOTE PER DR BENOIT AND KAYKAY RN GI OK TO GIVE XARELTO
--- NOTE | 2018-03-27 17:00 | NUR ---
FIELD CROP FARM WORKER NOTE AGITATED, RR 38-40, INCREASED DIPRIVAN DRIP AT AT 40 MCG\KG\MIN
--- NOTE | 2018-03-27 17:57 | NUR ---
MICROSTRATEGY REPORTS DEVELOPER NOTE RT AT BEDSIDE ,DEEP SUCTION DONE , MOD ANT TINGE BLOODY SECRETION NOTED , KEEP HOB ELEVATED AT ALL TIME, CONT ON N GTUBE FEEDING ORDERED, WILL CONT TO MONITOR CLOSELY
--- NOTE | 2018-03-27 18:45 | NUR ---
BARISTA NOTE NOTED PATIENT STILL IN DISTRESS ,RR 38-40 , CHARGE NURSE NOTIFIED OK TO INCREASE DIPRIVAN TO 50 MCG\KG\MIN ,WILL MONITOR CLOSELY
--- NOTE | 2018-03-27 20:33 | NUR ---
RECEIVED PT INTUBATED ON VENT. PT TOLERATING VENT SETTINGS. SX'D FOR SML AMT OF THICK TINGED SECRETIONS. VENT ALARMS SET AND AUDIBLE AMBU BAG AT BEDSIDE. ETT SECURED, CUFF SET DECORATOR. VENT PLUGGED INTO RED OUTLET. WILL CONTINUE TO MONITOR. Addendum: 03/27/18 at 2037 by KOMAL BROWN RT Amended: Links added.
[2018-03-27] MEDS: ATORVASTATIN 10 MG TABLET PO SCH (21:47)
[2018-03-28] VITALS (41 sets, daily range): BP systolic 77–141; BP diastolic 30–87
[2018-03-28] MEDS: JEVITY 1.2 CAL 1,000 ML BOTTLE GT PRN (01:09)
[2018-03-28] MEDS: VANCOMYCIN 1 GM in IV D5W 250 ML IV SCH ×2 (03:04→20:33)
[2018-03-28] MEDS: PROPOFOL 100 ML IV PRN ×3 (03:23→17:18)
[2018-03-28 04:50] LABS: CALCIUM, SERUM 7.4 mg/dL (8.5-10.1); CARBON DIOXIDE 29 mmol/L (21-32); CHLORIDE 108 mmol/L (98-107); CREATININE 0.7 mg/dL (0.6-1.3); GLUCOSE 84 mg/dL (74-106); POTASSIUM 3.9 mmol/L (3.5-5.1); SODIUM SERUM 139 mmol/L (136-145); UREA NITROGEN, BLOOD 24 mg/dL (7-18)
[2018-03-28] MEDS: ZOSYN IVPB 2.25 G in IV D5W 50ml IV SCH ×4 (05:40→23:17)
--- NOTE | 2018-03-28 07:33 | NUR ---
RT PT RECEIVED ORALLY INTUBATED WITH A 7.5 ETT SECURED AT 24CM AT THE LIP LINE, PT IS ON THE VENT WITH NOTED SETTINGS. PT IS NOT AWAKE AT THIS TIME BUT RESPONDS TO STIMULI WHEN SX'D. VENT ALARMS ARE SET AND AUDIBLE WITH BVM BY BEDSIDE. DRY BOSS CUFF PRESSURE NOTED. VENT IS PLUGGED INTO RED OUTLET. SX'D MODERATE THICK DARK RED SECRETIONS. NO RESPIRATORY DISTRESS NOTED AT THIS TIME, WILL CONTINUE TO MONITOR. Addendum: 03/28/18 at 0958 by STEPH KAPOOR RT Amended: Links added.
[2018-03-28] MEDS: PANTOPRAZOLE 40 MG VIAL IV SCH ×2 (08:18→20:33)
[2018-03-28] MEDS: DOCUSATE SODIUM LIQ 100 MG/10 ML UDC NG SCH ×2 (08:18→16:32)
[2018-03-28] MEDS: LACTOBACILLUS RHAMNOSUS GG 1 EACH CAP.SPRINK PO SCH ×2 (08:18→16:32)
[2018-03-28] MEDS: Z GUARD REMEDY 2 OZ OINT TP SCH (08:19)
[2018-03-28] MEDS: SOTALOL HCL 80 MG TABLET PO SCH ×2 (09:14→16:33)
--- NOTE | 2018-03-28 09:35 | NUR ---
RN NOTES 0715 RECEIVED PT INTUBATED, ON VENT. NO RESPIRATORY DISTRESS NOTED. PT SEDATED, ON DIPRIVAN AT 45MCG/KG/MIN. WILL TITRATE ACCORDINGLY. LUIS ALBERTO PICC IN PLACE. NGT IN PLACE. TOLERATING JEVITY AT 50ML/HR. WILL MONITOR FOR RESIDUAL. FC IN PLACE. NO HEMATURIA NOTED. BLE ELEVATED. PT REPOSITIONED. WILL CONTINUE TO MONITOR. 0845 SEEN AND EXAMINED BY DR BRENT. MENJIVAR AWARE OF LAB VALUES AND CXR RESULT. NO ORDER MADE. WILL CONTINUE TO MONITOR 0900 SEEN AND EXAMINED BY DR THAKKAR. AWARE OF CURRENT LAB VALUES AND CXR RESULT. PT ON SEDATION VACATION. ABLE TO OPEN EYES AND FOLLOW SIMPLE COMMANDS. PER , WILL START WEANING JOSUÉ. WILL CLOSELY MONITOR.
[2018-03-28] MEDS: RIVAROXABAN 15 MG TABLET NG SCH (16:33)
--- NOTE | 2018-03-28 18:56 | NUR ---
RN CLOSING NOTES NO SIGNIFICANT CHANGE NOTED. PT KEPT COMFORTABLE. TX PROVIDED ORDERED. KEPT CLEAN AND DRY. REPOSITIONED Q2. BLE ELEVATED. WILL ENDORSE FOR CONTINUITY OF CARE.
--- NOTE | 2018-03-28 19:00 | NUR ---
RN INITIAL NOTES RECEIVED THE PATIENT SEDATED ON BED WITH DIPRIVAN @ 30MCG/KG/MIN. EASILY AROUSABLE TO TOUCH. INTUBATED AND ON VENT WITH SETTINGS AC 16, TV 400, FIO2 40%, PEEP 5, ETT 7.5/23@LIP, SATURATING WELL, BUT TACHYPNEIC @ 30-40 RESP/MIN - WILL INCREASE SEDATION. CURRENTLY SR ON THE MONITOR, HR 80'S. RIGHT NARE NGT TO FEEDING JEVITY 1.2 @ 50MLS/HR, NO RESIDUALS, TOLERATING WELL. BHANDARI CATH INTACT. RIGHT UPPER ARM PICC, FLUSHED AND PATENT, NO S/S OF INFILTRATION/INFECTION, DRESSING CDI. BED LOW AND LOCKED, SIDERAILS UP, BILATERAL WRIST RESTRAINTS IN PLACE FOR SAFETY, BED ALARM ON. WILL MONITOR
--- NOTE | 2018-03-28 20:54 | NUR ---
INITIAL ECHO FINDING SHOWED EF 25%~. INFORMED ALEJANDRA SCOTT AND DR. AL OF PRELIMINARY RESULTS.
[2018-03-28] MEDS: ATORVASTATIN 10 MG TABLET PO SCH (21:32)
[2018-03-29] VITALS (44 sets, daily range): BP systolic 66–207; BP diastolic 31–117
[2018-03-29] MEDS: PROPOFOL 100 ML IV PRN ×4 (00:01→19:08)
[2018-03-29 04:35] LABS: EOSINOPHILS % (AUTO) 3.4 % (0.0-6.0); HEMATOCRIT 26 % (33-45); HEMOGLOBIN 7.9 g/dL (11.5-14.8); LYMPHOCYTES # (AUTO) 0.9 /CMM (0.8-4.8); LYMPHOCYTES % (AUTO) 7.3 % (20.0-44.0); MEAN CORPUSCULAR HGB CONC 31 g/dl (31.0-36.0); MEAN CORPUSCULAR VOLUME 101 fL (82-100); MONOCYTES # (AUTO) 0.2 /CMM (0.1-1.30); MONOCYTES % (AUTO) 1.6 % (2.0-12.0); NEUTROPHILS # (AUTO) 10.6 /CMM (1.8-8.9); NEUTROPHILS % (AUTO) 87.7 % (43.0-81.0); PLATELET COUNT (AUTO) 181 /CMM (150-450); RDW COEFFICIENT OF VARIATION 17.3 (11.5-15.0); RED BLOOD CELL COUNT(AUTO) 2.54 MIL/uL (4.0-5.2); WHITE BLOOD COUNT (AUTO) 12.1 K/uL (4.3-11.0)
[2018-03-29 04:48] LABS: CALCIUM, SERUM 7.3 mg/dL (8.5-10.1); CARBON DIOXIDE 27 mmol/L (21-32); CHLORIDE 103 mmol/L (98-107); CREATININE 0.7 mg/dL (0.6-1.3); GLUCOSE 98 mg/dL (74-106); POTASSIUM 3.7 mmol/L (3.5-5.1); SODIUM SERUM 133 mmol/L (136-145); UREA NITROGEN, BLOOD 20 mg/dL (7-18)
--- NOTE | 2018-03-29 04:56 | NUR ---
RT PT RECEIVED INTUBATED W/ ETT 7.5 @ 24CM LIP ON [facility] VENT WITH NOTED SETTING. ETT PATENT AND SECURE VIA ANCHOR FAST. VENT TO RED OUTLET. ALARM SET AND AUDIBLE. BRICK AND TILE MAKING MACHINE OPERATOR DONE. AMBU BAG AT [facility]. PT TOLERATING VENT SETTING WELL. NO SOB OR RESP DISTRESS NOTED. Addendum: 03/29/18 at 0457 by RANJEET CHARLES RT Amended: Links added.
[2018-03-29] MEDS: ZOSYN IVPB 2.25 G in IV D5W 50ml IV SCH ×4 (05:03→23:14)
--- NOTE | 2018-03-29 06:20 | NUR ---
RN CLOSING NOTES PT REMAINS STABLE OF THE MOMENT. ALL DUE MEDS GIVEN, AM CARE PROVIDED. WILL ENDORSE MADDISON TO AM RN
--- NOTE | 2018-03-29 08:47 | NUR ---
PT. IS AWAKE AND FOLLOW COMMANDS, VENT CHANGES BELOW MADE FOR WEANING TRIAL ORDER: SIMV 4 VT 400 PS 15 FIO2 40% PEEP 5 Addendum: 03/29/18 at 0851 by KERMIT POTTS RT Amended: Links added.
--- NOTE | 2018-03-29 09:16 | NUR ---
PLACED BACK TO AC MODE DUE TO RR 47, BP 207/117, HR 118. Addendum: 03/29/18 at 0916 by KERMIT POTTS RT Amended: Links added.
[2018-03-29] MEDS: PANTOPRAZOLE 40 MG VIAL IV SCH ×2 (09:23→21:26)
[2018-03-29] MEDS: SOTALOL HCL 80 MG TABLET PO SCH ×2 (09:26→17:01)
[2018-03-29] MEDS: LACTOBACILLUS RHAMNOSUS GG 1 EACH CAP.SPRINK PO SCH ×2 (09:26→17:40)
[2018-03-29] MEDS: DOCUSATE SODIUM LIQ 100 MG/10 ML UDC NG SCH ×2 (09:26→16:59)
[2018-03-29] MEDS: Z GUARD REMEDY 2 OZ OINT TP SCH (09:27)
--- NOTE | 2018-03-29 09:30 | NUR ---
PT WAS SWITCHED TO SIMV MODE AT 8:30 BUT NOT ABLE TO TOLERATE , BP 197/117 HR 106. WELL HIGH SECRETIONS AND MUCUS PLUG. SETTING CHANGED BACK TO AC MODE.
[2018-03-29] MEDS: ACETYLCYSTEINE 10% SOLN 400 MG/4 ML VIAL NEB SCH ×3 (10:30→22:43)
[2018-03-29] MEDS: VANCOMYCIN 1 GM in IV D5W 250 ML IV SCH (15:54)
[2018-03-29] MEDS: RIVAROXABAN 15 MG TABLET NG SCH (17:00)
[2018-03-29] MEDS: JEVITY 1.2 CAL 1,000 ML BOTTLE GT PRN (17:53)
--- NOTE | 2018-03-29 19:00 | NUR ---
RN INITIAL NOTES RECEIVED THE PATIENT SEDATED ON BED WITH DIPRIVAN @ 30MCG/KG/MIN. EASILY AROUSABLE TO TOUCH. INTUBATED AND ON VENT WITH SETTINGS AC 16, TV 400, FIO2 40%, PEEP 5, ETT 7.5/23@LIP, SATURATING WELL, NO S/S OF RESP DISTRESS. CURRENTLY SR ON THE MONITOR, HR 70-80'S. RIGHT NARE NGT TO FEEDING JEVITY 1.2 @ 50MLS/HR, NO RESIDUALS, TOLERATING WELL. BHANDARI CATH INTACT. RIGHT UPPER ARM PICC, FLUSHED AND PATENT, NO S/S OF INFILTRATION/INFECTION, DRESSING CDI. BED LOW AND LOCKED, SIDERAILS UP, BILATERAL WRIST RESTRAINTS IN PLACE FOR SAFETY, BED ALARM ON. WILL MONITOR
--- NOTE | 2018-03-29 19:39 | NUR ---
RECEIVED PT INTUBATED ON VENT. PT TOLERATING VENT SETTINGS. SX'D FOR SML AMT OF THICK TINGED SECRETIONS. VENT ALARMS SET AND AUDIBLE AMBU BAG AT BEDSIDE. ETT SECURED, CUFF ASSOCIATE DENTIST. VENT PLUGGED INTO RED OUTLET. WILL CONTINUE TO MONITOR. Addendum: 03/29/18 at 1939 by MIKE KOROMA RT Amended: Links added.
[2018-03-29] MEDS: ATORVASTATIN 10 MG TABLET PO SCH (21:26)
[2018-03-29] MEDS: MAGNESIUM HYDROXIDE 30 ML UDC PEG PRN (23:14)
[2018-03-30] VITALS (37 sets, daily range): BP systolic 97–164; BP diastolic 44–83
[2018-03-30] MEDS: PROPOFOL 100 ML IV PRN ×3 (05:10→18:19)
[2018-03-30] MEDS: ZOSYN IVPB 2.25 G in IV D5W 50ml IV SCH ×4 (05:10→23:54)
[2018-03-30 05:30] LABS: CALCIUM, SERUM 7.5 mg/dL (8.5-10.1); CARBON DIOXIDE 28 mmol/L (21-32); CHLORIDE 104 mmol/L (98-107); CREATININE 0.7 mg/dL (0.6-1.3); GLUCOSE 111 mg/dL (74-106); POTASSIUM 4.1 mmol/L (3.5-5.1); SODIUM SERUM 137 mmol/L (136-145); UREA NITROGEN, BLOOD 22 mg/dL (7-18)
--- NOTE | 2018-03-30 06:30 | NUR ---
RN CLOSING NOTES PT REMAINS STABLE OF THE MOMENT. ALL DUE MEDS GIVEN, AM CARE PROVIDED. WILL ENDORSE MADDISON TO AM RN
--- NOTE | 2018-03-30 07:15 | NUR ---
RN INITIAL NOTES RECEIVED PT INTUBATED, ON VENT. NO RESPIRATORY DISTRESS NOTED. NO SIGNS OF PAIN NOTED. PT SEDATED, ON DIPRIVAN AT 30MCG/KG/MIN. LUIS ALBERTO PICC LINE IN PLACE. FC IN PLACE. NO HEMATURIA NOTED. BLE ELEVATED. WILL CLOSELY MONITOR
[2018-03-30] MEDS: ACETYLCYSTEINE 10% SOLN 400 MG/4 ML VIAL NEB SCH ×3 (07:29→23:30)
[2018-03-30] MEDS: VANCOMYCIN 1 GM in IV D5W 250 ML IV SCH (08:29)
[2018-03-30] MEDS: DOCUSATE SODIUM LIQ 100 MG/10 ML UDC NG SCH ×2 (08:29→16:16)
[2018-03-30] MEDS: PANTOPRAZOLE 40 MG VIAL IV SCH ×2 (08:29→20:22)
[2018-03-30] MEDS: LACTOBACILLUS RHAMNOSUS GG 1 EACH CAP.SPRINK PO SCH ×2 (08:30→16:16)
[2018-03-30] MEDS: Z GUARD REMEDY 2 OZ OINT TP SCH (08:30)
[2018-03-30] MEDS: SOTALOL HCL 80 MG TABLET PO SCH ×2 (08:30→16:16)
--- NOTE | 2018-03-30 09:00 | NUR ---
RN NOTES SEEN AND EXAMINED BY DR THAKKAR. AWARE OF CURRENT LAB VALUES AND CXR RESULT. PT ON SEDATION VACATION. PT OPEN EYES, ABLE TO FOLLOW COMMAND. WILL CLOSELY MONITOR.
[2018-03-30 10:18] LABS: ABG BASE EXCESS -1.4 mmol/L; ABG OXYGEN SATURATION 94.3 % (92.0-98.5); ABG PCO2 35.1 mmHg (35.0-45.0); ABG PH 7.427 (7.350-7.450); ABG PO2 80.9 mmHg (75.0-100.0); AaDO2 163.9 mmHg; COHb 0.3 % (0.5-1.5); MetHb 0.7 % (0.0-1.5); O2Hb 93.4 % (94.0-97.0); PEEP,BG 5 cm H2O; SITE, ABG Right Radial; VENT MODE, BG AC 16 400 40% +5; VT, ABG 400 mL
--- NOTE | 2018-03-30 11:12 | NUR ---
RT NOTE RECEIVED PT MECHANICALLY VENTILATED VIA 7.5 ETT 24 CM AT LIP. ETT SECURE. CUFF INFLATED. VENTILATOR SETTINGS PRESCRIBED. ALARMS SET PER PROTOCOL AND AUDIBLE. VENT PLUGGED IN TO RED OUTLET. AMBU BAG AT BED SIDE. NO DISTRESS NOTED. Addendum: 03/30/18 at 1117 by RIGO CLAROS RT Amended: Links added.
[2018-03-30] MEDS: JEVITY 1.2 CAL 1,000 ML BOTTLE GT PRN (13:34)
--- NOTE | 2018-03-30 15:00 | NUR ---
RN NOTES SEEN AND EXAMINED BY DR BENOIT. AWARE OF CURRENT LAB VALUES AND CXR RESULT. PT REMAINS ON DIPRIVAN AT 30MCG/KG/MIN. TOLERATING GTF WELL. WILL MONITOR.
[2018-03-30] MEDS: RIVAROXABAN 15 MG TABLET NG SCH (16:22)
--- NOTE | 2018-03-30 18:42 | NUR ---
RN CLOSING NOTES NO SIGNIFCANT CHANGE NOTED. REMAINS ON DIPRIVAN. TOLERATING GTF WELL. KEPT CLEAN AND DRY. REPOSITIONED Q2. TX PROVIDED ORDERED. KEPT COMFORTABLE. WILL ENDORSE FOR CONTINUITY OF CARE.
--- NOTE | 2018-03-30 19:00 | NUR ---
RN INITIAL NOTES RECEIVED THE PATIENT SEDATED ON BED WITH DIPRIVAN @ 30MCG/KG/MIN. EASILY AROUSABLE TO TOUCH. INTUBATED AND ON VENT WITH SETTINGS AC 16, TV 400, FIO2 40%, PEEP 5, ETT 7.5/23@LIP, SATURATING WELL, TACHYPNEIC BUT NO OTHER S/S OF RESP DISTRESS. CURRENTLY SR ON THE MONITOR, HR 70-80'S. RIGHT NARE NGT TO FEEDING JEVITY 1.2 @ 50MLS/HR, NO RESIDUALS, TOLERATING WELL. BHANDARI CATH INTACT. RIGHT UPPER ARM PICC, FLUSHED AND PATENT, NO S/S OF INFILTRATION/INFECTION, DRESSING CDI. BED LOW AND LOCKED, SIDERAILS UP, BILATERAL WRIST RESTRAINTS IN PLACE FOR SAFETY, BED ALARM ON. WILL MONITOR
--- NOTE | 2018-03-30 19:23 | NUR ---
PT RECEIVED ORALLY INTUBATED WITH A 7.5 ETT SECURED AT 24CM AT THE LIP LINE, PT IS ON THE VENT WITH NOTED SETTINGS. PT IS NOT AWAKE AT THIS TIME BUT RESPONDS TO STIMULI WHEN SX'D. VENT ALARMS ARE SET AND AUDIBLE WITH AMBU BAG @ BEDSIDE. GAS STATION MANAGER CUFF PRESSURE NOTED. VENT IS PLUGGED INTO RED OUTLET. SX'D MODERATE YELLOW THICK SECRETIONS WITH BLOOD TINGED.NO RESPIRATORY DISTRESS NOTED AT THIS TIME, WILL CONTINUE TO MONITOR.
[2018-03-30] MEDS: CARVEDILOL 3.125 MG TABLET PO SCH (20:22)
[2018-03-30] MEDS: ATORVASTATIN 10 MG TABLET PO SCH (21:15)
[2018-03-31] VITALS (36 sets, daily range): BP systolic 92–153; BP diastolic 31–91
[2018-03-31] MEDS: PROPOFOL 100 ML IV PRN ×4 (01:20→23:28)
[2018-03-31] MEDS: VANCOMYCIN 1 GM in IV D5W 250 ML IV SCH ×2 (03:27→21:29)
[2018-03-31] MEDS: ZOSYN IVPB 2.25 G in IV D5W 50ml IV SCH ×4 (05:04→23:28)
[2018-03-31 05:07] LABS: CALCIUM, SERUM 7.5 mg/dL (8.5-10.1); CARBON DIOXIDE 26 mmol/L (21-32); CHLORIDE 102 mmol/L (98-107); CREATININE 0.7 mg/dL (0.6-1.3); GLUCOSE 113 mg/dL (74-106); POTASSIUM 4.1 mmol/L (3.5-5.1); SODIUM SERUM 135 mmol/L (136-145); UREA NITROGEN, BLOOD 23 mg/dL (7-18)
--- NOTE | 2018-03-31 06:10 | NUR ---
RN CLOSING NOTES PT REMAINS STABLE OF THE MOMENT. ALL DUE MEDS GIVEN, AM CARE PROVIDED. WILL ENDORSE MADDISON TO AM RN
--- NOTE | 2018-03-31 07:10 | NUR ---
RN INITIAL NOTES RECEIVED PT INTUBATED, ON VENT. NO RESPIRATORY DISTRESS NOTED. NO SIGNS OF PAIN NOTED. PT SEDATED, ON DIPRIVAN AT 60MCG/KG/MIN. WILL TITRATE ACCORDINGLY. LUIS ALBERTO PICC LINE IN PLACE. NGT IN PLACE. TOLERATING GTF WELL. FC IN PLACE. NO HEMATURIA NOTED. BLE ELEVATED. WILL CLOSELY MONITOR
[2018-03-31] MEDS: ACETYLCYSTEINE 10% SOLN 400 MG/4 ML VIAL NEB SCH ×3 (07:14→23:26)
[2018-03-31 07:56] LABS: ABG BASE EXCESS 0.2 mmol/L; ABG OXYGEN SATURATION 94.6 % (92.0-98.5); ABG PCO2 38.9 mmHg (35.0-45.0); ABG PH 7.419 (7.350-7.450); ABG PO2 83.7 mmHg (75.0-100.0); AaDO2 156.8 mmHg; COHb 0.3 % (0.5-1.5); MetHb 0.7 % (0.0-1.5); O2Hb 93.7 % (94.0-97.0); SITE, ABG Left Radial
[2018-03-31] MEDS: LACTOBACILLUS RHAMNOSUS GG 1 EACH CAP.SPRINK PO SCH ×2 (08:47→16:35)
[2018-03-31] MEDS: FUROSEMIDE 20 MG/2 ML VIAL IV SCH (08:47)
[2018-03-31] MEDS: DOCUSATE SODIUM LIQ 100 MG/10 ML UDC NG SCH ×2 (08:47→16:35)
[2018-03-31] MEDS: PANTOPRAZOLE 40 MG VIAL IV SCH ×2 (08:47→21:29)
[2018-03-31] MEDS: SOTALOL HCL 80 MG TABLET PO SCH ×2 (08:49→16:35)
[2018-03-31] MEDS: BENAZEPRIL HCL 10 MG TABLET NG SCH (08:49)
[2018-03-31] MEDS: CARVEDILOL 3.125 MG TABLET PO SCH ×2 (08:49→21:31)
[2018-03-31] MEDS: Z GUARD REMEDY 2 OZ OINT TP SCH (08:50)
--- NOTE | 2018-03-31 09:30 | NUR ---
RN NOTES SEEN AND EXAMINED BY DR JOY. PT REMAINS INTUBATED, ON VENT. NO RESPIRATORY DISTRESS NOTED. PT ON SEDATION VACATION. PT OPENS EYES, ABLE TO FOLLOW SIMPLE COMMANDS. SON AT BEDSIDE. MD AWARE OF LAB VALUES, CXR AND ABG RESULT. WILL CONTINUE TO MONITOR.
[2018-03-31] MEDS: JEVITY 1.2 CAL 1,000 ML BOTTLE GT PRN (15:32)
--- NOTE | 2018-03-31 16:30 | NUR ---
RN NOTES SEEN AND EXAMINED BY DR BENOIT. MD AWARE PF LATEST LAB VALUES AND CXR RESULT. MD REVIEWED CURRENT MED LIST AND VERBALLY ORDERED TO DC SOTALOL BEC IT CAN DECREASE PT'S EF. PT HAD ECHO AND EF WAS 25%. WILL CONTINUE TO MONITOR.
[2018-03-31] MEDS: RIVAROXABAN 15 MG TABLET NG SCH (16:36)
--- NOTE | 2018-03-31 18:53 | NUR ---
RN CLOSING NOTES NO SIGNIFICANT CHANGE NOTED. REMAINS ON DIPRIVAN. TOLERATING GTF WELL. KEPT CLEAN AND DRY. REPOSITIONED Q2. TX PROVIDED ORDERED. KEPT COMFORTABLE. WILL ENDORSE FOR CONTINUITY OF CARE.
--- NOTE | 2018-03-31 19:45 | NUR ---
ICU/MEDICAL OFFICE ASSISTANT INSTRUCTOR RECEIVED REPORT FROM DAY NURSE, PT IS ORALLY INTUBATED WITH SEDATION AT 30MCG. PT IS TOLERATING THIS WELL, WITH SATURATION AT 98-100%, PT DOES HAS THICK SECRETIONS. PT IS SR WITH SOME ECTOPY ON MONITOR. BHANDARI CATH DRAINING DARK YELLOW URINE. SKIN ISSUES ARE ADDRESSED ON FLOWSHEET, STAGE 2 WOUND WITH MEPILEX. ALSO PT IS CURRENTLY ON A [employer] BED.PT WAS TURNED AND REPOSITIONED FOR COMFORT AND CARE. WILL CONTINUE TO MONITOR THIS PT.
[2018-03-31 20:47] LABS: CALCIUM, SERUM 7.6 mg/dL (8.5-10.1); CARBON DIOXIDE 30 mmol/L (21-32); CHLORIDE 101 mmol/L (98-107); CREATININE 0.7 mg/dL (0.6-1.3); GLUCOSE 99 mg/dL (74-106); POTASSIUM 3.7 mmol/L (3.5-5.1); SODIUM SERUM 136 mmol/L (136-145); UREA NITROGEN, BLOOD 25 mg/dL (7-18)
--- NOTE | 2018-03-31 21:25 | NUR ---
ICU/GRASS FARM LABORER PT'S VANCO TROUGH DONE, WITH THE LEVEL AT 15. RM WAS NOTIFIED. 2100 DOSE OF VANCO WAS HUNG UP. WILL CONTINUE TO MONITOR THIS PT.
[2018-03-31] MEDS: ATORVASTATIN 10 MG TABLET PO SCH (21:31)
[2018-04-01] VITALS (38 sets, daily range): BP systolic 89–147; BP diastolic 37–82
--- NOTE | 2018-04-01 00:25 | NUR ---
ICU/VOCATIONAL REHABILITATION SUPERVISOR BILATERAL SOFT WRIST RESTRAINT WERE REORDERED, PT CONTINUES TO PULL AT LINES. WILL CONTINUE TO MONITOR THIS PT.
--- NOTE | 2018-04-01 02:30 | NUR ---
ICU/[employer] PT GIVEN AM CARE ALONG WITH ORAL CARE. PT TOLERATED THIS WELL, REMAINS ON CURRENT VENT SETTINGS WITH SATURATION AT 98-100%. ALSO PT CURRENTLY ON 30MCG OF DEPROVAN. PT WAS TURNED AND REPOSITIONED FOR COMFORT AND CARE. WILL CONTINUE TO MONITOR THIS PT
--- NOTE | 2018-04-01 04:20 | NUR ---
ICU/[facility] AM LABS WERE DRAWN WELL PORTABLE CHEST XRAY. AWAIT ANY ABNORMAL LABS.
[2018-04-01 04:45] LABS: CALCIUM, SERUM 7.5 mg/dL (8.5-10.1); CARBON DIOXIDE 30 mmol/L (21-32); CHLORIDE 100 mmol/L (98-107); CREATININE 0.6 mg/dL (0.6-1.3); GLUCOSE 88 mg/dL (74-106); POTASSIUM 3.8 mmol/L (3.5-5.1); SODIUM SERUM 134 mmol/L (136-145); UREA NITROGEN, BLOOD 24 mg/dL (7-18)
[2018-04-01] MEDS: ZOSYN IVPB 2.25 G in IV D5W 50ml IV SCH ×4 (05:14→23:25)
--- NOTE | 2018-04-01 07:15 | NUR ---
RN INITIAL NOTES RECEIVED PT INTUBATED, ON VENT. NO RESPIRATORY DISTRESS NOTED. NO SIGNS OF DISCOMFORT NOTED. PT SEDATED, ON DIPRIVAN AT 30MCG/KG/MIN. WILL TITRATE ACCORDINGLY. LUIS ALBERTO PICC LINE IN PLACE. NGT IN PLACE. TOLERATING GTF WELL. FC IN PLACE. NO HEMATURIA NOTED. BLE ELEVATED. WILL CLOSELY MONITOR
[2018-04-01] MEDS: PROPOFOL 100 ML IV PRN ×4 (07:39→23:49)
--- NOTE | 2018-04-01 07:40 | NUR ---
RT PATIENT REC'D ORALLY INTUBATED ON [facility] WITH ORDERED SETTINGS MANDY WELL. VENT ALARMS CHECKED + AUDIBLE. CUFF PRESSURE CHECKED REAL ESTATE ADMINISTRATIVE ASSISTANT. AIRWAY PATENT AND SUCTIONED WITH SMALL AMT PALE SEMITHICK SECRETIONS.AMBU BAG AT [facility]. Addendum: 04/01/18 at 1615 by JATIN BURCIAGA RT Amended: Links added.
[2018-04-01] MEDS: ACETYLCYSTEINE 10% SOLN 400 MG/4 ML VIAL NEB SCH ×3 (07:41→23:39)
[2018-04-01 08:12] LABS: PHOSPHORUS 2.9 mg/dL (2.5-4.9)
[2018-04-01] MEDS: DOCUSATE SODIUM LIQ 100 MG/10 ML UDC NG SCH ×2 (08:13→16:41)
[2018-04-01] MEDS: CARVEDILOL 3.125 MG TABLET PO SCH ×2 (08:13→21:23)
[2018-04-01] MEDS: FUROSEMIDE 20 MG/2 ML VIAL IV SCH (08:13)
[2018-04-01] MEDS: LACTOBACILLUS RHAMNOSUS GG 1 EACH CAP.SPRINK PO SCH ×2 (08:14→16:41)
[2018-04-01] MEDS: Z GUARD REMEDY 2 OZ OINT TP SCH (08:14)
[2018-04-01] MEDS: PANTOPRAZOLE 40 MG VIAL IV SCH ×2 (08:14→21:21)
[2018-04-01] MEDS: BENAZEPRIL HCL 10 MG TABLET NG SCH (08:14)
--- NOTE | 2018-04-01 09:00 | NUR ---
RUG UNDERLAY MACHINE OPERATOR NOTES DIPRIVAN HELD FOR SEDATION VACATION , VSS , NO DISTRESS NOTED , BILATERAL SOFT WRIST RESTRAINS IN PLACE , SON AT BEDSIDE , WILL CONTINUE TO MONITOR .
--- NOTE | 2018-04-01 09:30 | NUR ---
PET COUNSELOR NOTES PLACED BACK PT ON DIPRIVAN @ 5MCG/KG/MIN DUE TO RR OF 40-45CPM , NOTED WITH MODERATE AGITATION AND DISTRESS
--- NOTE | 2018-04-01 10:30 | NUR ---
CIVIL ENGINEER HELPER NOTES SEEN AND EVALUATED BY DR BOLES , DISCUSSED LABS , CHEST XRAY AND CURRENT VENT SETTINGS WITH NO SIGNS OF DISTRESS , SEDATION VACATION @ 0900 AND PLACED PACK DIPRIVAN @ 0930 DUE TO TACHYPNEA RR OF 40-45CPM , ABLE TO FOLLOW SIMPLE COMMANDS OFF SEDATION , MD AWARE ,
[2018-04-01 11:58] LABS: BASOPHILS % (AUTO) 0.6 % (0.0-2.0); EOSINOPHILS % (AUTO) 3.3 % (0.0-6.0); HEMATOCRIT 21 % (33-45); LYMPHOCYTES # (AUTO) 0.7 /CMM (0.8-4.8); LYMPHOCYTES % (AUTO) 8.8 % (20.0-44.0); MEAN CORPUSCULAR HGB CONC 33 g/dl (31.0-36.0); MEAN CORPUSCULAR VOLUME 98 fL (82-100); MONOCYTES # (AUTO) 0.5 /CMM (0.1-1.30); MONOCYTES % (AUTO) 5.9 % (2.0-12.0); NEUTROPHILS # (AUTO) 6.5 /CMM (1.8-8.9); NEUTROPHILS % (AUTO) 81.4 % (43.0-81.0); PLATELET COUNT (AUTO) 220 /CMM (150-450); RDW COEFFICIENT OF VARIATION 16.2 (11.5-15.0); RED BLOOD CELL COUNT(AUTO) 2.17 MIL/uL (4.0-5.2)
[2018-04-01 12:25] LABS: BAND % (MANUAL) 7 % (0.0-5.0); EOSINOPHILS % (MANUAL) 2 % (0-4); LYMPHOCYTES % (MANUAL) 5 % (16-48); MONOCYTES % (MANUAL) 5 % (0-11.0); NEUTROPHILS % (MANUAL) 80 (42-76)
[2018-04-01 12:26] LABS: METAMYELOCYTES % 1 % (0-0)
--- NOTE | 2018-04-01 12:35 | NUR ---
ASSISTANT IN NURSING NOTES NOTIFIED DR BOLES REGARDING RR OF 35CPM ON DIPRIVAN @ 60MCG/KG/MIN MAX DOSE IS 100MCG/KG/MIN , PER MD ADD ATIVAN 1MG Q4 PRN , ORDER CARRIED OUT
[2018-04-01] MEDS: LORAZEPAM INJ 2 MG/ML VIAL IV PRN (12:39)
[2018-04-01] MEDS: VANCOMYCIN 1 GM in IV D5W 250 ML IV SCH (15:26)
--- NOTE | 2018-04-01 16:30 | NUR ---
CHEMICAL EQUIPMENT CONTROLLER NOTES SEEN AND EVACUATED BY DR BENOIT , DISCUSSED LABS , CURRENT VENT SETTINGS , NO ACTIVE BLEEDING NOTED , VSS ,AFEBRILE , ON DIPRIVAN @ 60MCG/KG/MIN , OFF SEDATION @ 0900 - 0930 PLACED BACK PT ON DIPRIVAN DUE TO TACHYPNEA RR OF 35-40 CPM , NOTED WITH EPISODE OF AFIB @ 0600 LASTING FOR 20 SECONDS , NOTIFIED THAT XARELTO IS HELD DUE TO LOW H/H PER MD OK TO GIVE , NOTIFIED ALSO THAT PT IS INTUBATED SINCE ADMISSION , MD AWARE
[2018-04-01] MEDS: RIVAROXABAN 15 MG TABLET NG SCH (16:42)
[2018-04-01] MEDS: JEVITY 1.2 CAL 1,000 ML BOTTLE GT PRN (18:27)
[2018-04-01] MEDS: Z GUARD REMEDY 2 OZ OINT TP PRN (18:27)
--- NOTE | 2018-04-01 19:40 | NUR ---
RN NOTES RECEIVED PT SEDATED W/ DIPRIVAN. WITH ETT 7.5, 22 CM AT LIP CONNECTED TI VENT SETTING AC 16, TV 400 FIO2 40% PEEP 5. NO ACUTE RESP DISTRESS. BILATERAL BREATH SOUND DIMINISHED. TELE MONITOR REVEALS SR W PAC'S, PVC'S AND BBB HR 74. RIGHT NARES NGT INTACT PATENCY CHECKED. WITH JEVITY 1.2 @ 50 ML/HR. IV SITE ON LUIS ALBERTO PICC LINE WITH NS TKO AND DIPRIVAN @ 70 MCG/KG/MIN. WATCH ASSEMBLY INSTRUCTOR RESTRAINT KEPT IN PLACED FOR SAFETY. CIRCULATION CHECKED. F/C DRAINED W/ YELLOW COLOR CLEAR URINE. DRAINED VIA GRAVITY. PRESENT WITH PERIPHERAL PULSES. PT HGB 7.0 MD IS AWARE PER AM REPORT. NO ACTIVE BLEEDING NOTED AT THIS TIME. KEPT PT CLEAN AND DRY. WILL CLOSELY MONITOR
[2018-04-01] MEDS: ATORVASTATIN 10 MG TABLET PO SCH (21:21)
[2018-04-02] VITALS (64 sets, daily range): BP systolic 69–182; BP diastolic 36–104
[2018-04-02 04:11] LABS: BASOPHILS % (AUTO) 0.1 % (0.0-2.0); EOSINOPHILS % (AUTO) 4.8 % (0.0-6.0); LYMPHOCYTES # (AUTO) 0.7 /CMM (0.8-4.8); LYMPHOCYTES % (AUTO) 9.4 % (20.0-44.0); MEAN CORPUSCULAR HGB CONC 34 g/dl (31.0-36.0); MEAN CORPUSCULAR VOLUME 98 fL (82-100); MONOCYTES # (AUTO) 0.6 /CMM (0.1-1.30); MONOCYTES % (AUTO) 8.3 % (2.0-12.0); NEUTROPHILS % (AUTO) 77.4 % (43.0-81.0); PLATELET COUNT (AUTO) 246 /CMM (150-450); RDW COEFFICIENT OF VARIATION 16.6 (11.5-15.0); RED BLOOD CELL COUNT(AUTO) 2.08 MIL/uL (4.0-5.2); WHITE BLOOD COUNT (AUTO) 7.7 K/uL (4.3-11.0)
[2018-04-02 04:27] LABS: CALCIUM, SERUM 7.2 mg/dL (8.5-10.1); CARBON DIOXIDE 31 mmol/L (21-32); CHLORIDE 99 mmol/L (98-107); CREATININE 0.8 mg/dL (0.6-1.3); GLUCOSE 115 mg/dL (74-106); POTASSIUM 3.5 mmol/L (3.5-5.1); SODIUM SERUM 130 mmol/L (136-145); UREA NITROGEN, BLOOD 26 mg/dL (7-18)
[2018-04-02 04:34] LABS: HEMATOCRIT 20 % (33-45); HEMOGLOBIN 6.9 g/dL (11.5-14.8)
[2018-04-02 04:59] LABS: BAND % (MANUAL) 8 % (0.0-5.0); EOSINOPHILS % (MANUAL) 1 % (0-4); LYMPHOCYTES % (MANUAL) 9 % (16-48); MONOCYTES % (MANUAL) 6 % (0-11.0); NEUTROPHILS % (MANUAL) 76 (42-76)
--- NOTE | 2018-04-02 05:00 | NUR ---
RN NOTES LEFT A MESSAGE TO DR. BENOIT INFORMED REGARDING HEMOGLOBIN 6.9 WAITING FOR THE CALL BACK.
[2018-04-02] MEDS: ZOSYN IVPB 2.25 G in IV D5W 50ml IV SCH ×3 (05:14→17:03)
[2018-04-02] MEDS: PROPOFOL 100 ML IV PRN ×3 (06:08→18:29)
--- NOTE | 2018-04-02 07:05 | NUR ---
RN NOTES CONTINUE ON ETT WITH MECHANICAL VENT. BREATHING EVEN AND UNLABORED. NO FACIAL COMPLAIN OF PAIN. ISOLATION PRECAUTION ALWAYS MET. NO ACTIVE BLEEDING THROUGHOUT THE SHIFT. ENDORSED TO AM SHIFT TO FOLLOW UP DR. BENOIT REGARDING CRITICAL VALUE OF HEMOGLOBIN LEVEL OF 6.9. TELE MONITOR REMAINED SR WITH BBB , PVC'S PAC'S. PHOTO TAKEN FOR SKIN ISSUE, WOUND CONSULT ORDER. F/C INTACT, GTF INTACT AND PATENT TOLERATED WELL. PT IS CLEANED AND DRY.
--- NOTE | 2018-04-02 07:17 | NUR ---
RECEIVED REPORT. PATIENT SEDATED ON DIPRIVAN AT 55MCH.KG.MIN. ETT 7.5 LIP TOLERATING VENT SETTINGS WELL. NO SOB, DIFFICULTY BREATHING. TELE READING NSR WITH PAC'S. PATIENT NOTED WITH GENERALIZED EDEMA. RIGHT NARE NGT WITH TUBE FEEDING RUNNING PER ORDER; 10ML RESIDUAL AND NO BLOOD NOTED. BHANDARI CATH IN PLACE DRAINING TO GRAVITY NO BLEEDING NOTED. PICC LINE IN PLACE C/D/I/P WITH BLOOD RETURN. PENDING MD ORDER FOR PRBC. AT THIS TIME NO SIGNS OF ACTIVE BLEEDING. BILATERAL WRIST RESTRAINTS IN PLACE REMOVED AT THIS TIME PATIENT IS SEDATED. WILL MONITOR FOR SAFETY. PATIENT VS STABLE AT THIS TIME. WILL MONITOR. SAFETY, ASPIRATION, SKIN, AND ISOLATION PRECAUTIONS IN PLACE
--- NOTE | 2018-04-02 07:33 | NUR ---
PER DR BENOIT OK FOR TYPE AND CROSS FOR 1 UNIT PRBC ONLY. AND WITH UNIT GIVE 20MG IVP LASIX ONCE
[2018-04-02] MEDS: DOCUSATE SODIUM LIQ 100 MG/10 ML UDC NG SCH ×2 (08:16→16:01)
[2018-04-02] MEDS: LACTOBACILLUS RHAMNOSUS GG 1 EACH CAP.SPRINK PO SCH ×2 (08:16→16:01)
[2018-04-02] MEDS: FUROSEMIDE 20 MG/2 ML VIAL IV SCH (08:16)
[2018-04-02] MEDS: PANTOPRAZOLE 40 MG VIAL IV SCH ×2 (08:16→21:15)
[2018-04-02] MEDS: CARVEDILOL 3.125 MG TABLET PO SCH ×2 (08:18→21:16)
[2018-04-02] MEDS: BENAZEPRIL HCL 10 MG TABLET NG SCH (08:18)
[2018-04-02] MEDS: ACETYLCYSTEINE 10% SOLN 400 MG/4 ML VIAL NEB SCH ×3 (08:18→22:49)
--- NOTE | 2018-04-02 08:18 | NUR ---
RT PATIENT REC'D ORALLY INTUBATED ON [facility] VENT WITH ORDERED SETTINGS MANDY WELL. VENT ALARMS CHECKED + AUDIBLE. CUFF PRESSURE CHECKED TAX SERVICES SPECIALIST. AIRWAY PATENT AND SUCTIONED WITH SMALL AMT PALE SEMITHICK SECRETIONS. AMBU BAG AT [facility]. Addendum: 04/02/18 at 1011 by JATIN BURCIAGA RT Amended: Links added.
[2018-04-02] MEDS: LORAZEPAM INJ 2 MG/ML VIAL IV PRN (09:09)
[2018-04-02] MEDS: Z GUARD REMEDY 2 OZ OINT TP SCH (09:25)
--- NOTE | 2018-04-02 09:26 | NUR ---
PATIENT S/P ATIVAN ADMIN WHILE OFF DIPRIVAN. PATIENT CONTINUES TO BE TACHYPNEIC HIGH 30'S-LOW 40'S. DR THAKKAR AT BEDSIDE. PER MD PATIENT IS NOT READY FOR WEANING TODAY AND RESUME DIPRIVAN FOR RR CONTROL. WHILE OFF DIPIRVAN PATIENT SLOW TO RESPOND HOWEVER WILL NOD Y/N TO QUESTIONS ASKED OF HER. DAUGHTER AT BEDSIDE AND SPOKE WITH MD AND UNDERSTANDING CARE PLAN. ALL QUESTIONS ANSWERED. SEDATION RESUMED WILL TITRATE PER PROTOCOL
[2018-04-02] MEDS: VANCOMYCIN 1 GM in IV D5W 250 ML IV SCH (09:37)
--- NOTE | 2018-04-02 10:34 | NUR ---
PER DR THAKKAR DAILY ABG CANCELLED, NO VENTILATOR CHANGES WILL OCCUR TODAY
--- NOTE | 2018-04-02 10:43 | NUR ---
WOUND CARE CONSULT: PT SEEN FOR DEEP TISSUE INJURY IN EVOLUTION, WHICH WAS PRESENT ON ADMISSION DEEP TISSUE INJURY WITH SACRAL SCARRING. RECOMMENDATIONS MADE FOR WOUND CARE AND SKIN PROTECTION. DISCUSSED WITH NURSING STAFF. WILL CONTINUE TO MONITOR. ALL SKIN PROTECTION MEASURES IN PLACE. PT CONTINUES TO BE INTUBATED. IN AGREEMENT WITH PLAN OF CARE. Addendum: 04/02/18 at 1044 by CHUCKY CORNEJO WNDNU Amended: Links added.
[2018-04-02] MEDS ORDERED: HYDROGEL DRESSING 90 GM TUBE TP PRN (11:00)
[2018-04-02] MEDS ORDERED: FUROSEMIDE 20 MG/2 ML VIAL IV ONE ×2 (11:00→16:00)
--- NOTE | 2018-04-02 11:38 | NUR ---
BLOOD TRANSFUSION STARTED
[2018-04-02] MEDS: HYDROGEL DRESSING 90 GM TUBE TP SCH (11:45)
[2018-04-02] MEDS: Z GUARD REMEDY 2 OZ OINT TP PRN (11:45)
[2018-04-02] MEDS ORDERED: POTASSIUM CHLORIDE 20 MEQ POWDER PACKET NG SCH (12:00)
--- NOTE | 2018-04-02 12:00 | NUR ---
BLOOD TRANSFUSION RUNNING VS STABLE. TEMP STABLE.
[2018-04-02] MEDS: NOREPINEPHRINE 16 MG in IV D5W 500 ML IV PRN (12:25)
--- NOTE | 2018-04-02 12:35 | NUR ---
PATIENT BLOOD PRESSURE DROPPED. STOPPED BLOOD TRANSFUSION AND STARTED LEVO.
--- NOTE | 2018-04-02 12:45 | NUR ---
PER DR CY CHARLES BLOOD DO NOT GIVE. NOTIFIED LAB AND FORM FILLED OUT. IV LINE NS TKO RUNNING
--- NOTE | 2018-04-02 12:55 | NUR ---
PATIENT BLOOD PRESSURE STABILIZED S/P STOPPING BLOOD TRANSFUSION. ORDERED PER PROTOCOL TRANSFUSION REACTION WORKUP, OBTAINED URINE SAMPLE AND COMPLETED FORM AND SENT TO FRANK AT LAB. SENT BLOOD AND TUBING TO LAB.
--- NOTE | 2018-04-02 13:23 | NUR ---
LEVO STOPPED. PATIENT BLOOD PRESSURE STABLE. DR BENOIT AWARE
--- NOTE | 2018-04-02 13:45 | NUR ---
PATIENT BP LOWERING AGAIN LEVO RESUMED PER PROTOCOL. MONITORING. TUBE FEEDING CONTINUED TO BE HELD PATIENT IS SUPINE/LEGS ELEVATED
--- NOTE | 2018-04-02 14:30 | NUR ---
dr lua at bedside. updated on patient ett cx growing gram negative rods. aware patient temp max 99.7 axillary now afebrile 98.7. at this time patient on low dose levo titrating off. bp labile. no overt signs of bleeding. md aware able to transfuse 100ml blood. no new orders. pending espana acceptance per cm patient needing to have a trach before considered accepted md notified. patient appears stable at this time.
--- NOTE | 2018-04-02 15:34 | NUR ---
per dr lua please give another 20mg ivp now.
--- NOTE | 2018-04-02 16:00 | NUR ---
CONFIRMED WITH DR CY WEINSTEIN TO CONTINUE XARELTO.
[2018-04-02] MEDS: JEVITY 1.2 CAL 1,000 ML BOTTLE GT PRN (16:01)
[2018-04-02] MEDS: RIVAROXABAN 15 MG TABLET NG SCH (16:28)
--- NOTE | 2018-04-02 18:36 | NUR ---
at this time patient stable. tolerating vent. rr 27-32. bp stable off levo since 1430. diprivan running at 50mcg/kg/min at this time with order ok to increase to 100if necessary for rr control. patient carreon cath in place draining to gravity. picc c/d/i/p/ blood return. patient aspiration, skin, and safety precautions in place and monitored throughout day. no signs of bleeding. care will be endorsed to rn for wanda.
--- NOTE | 2018-04-02 19:03 | NUR ---
Unique Id: [id number]
--- NOTE | 2018-04-02 19:40 | NUR ---
RN NOTES PT WITH ETT 7.5, 22 CM AT LIP ON MECHANICAL VENT SETTING AC 16, TV 400 FIO2 40% PEEP 5. NO ACUTE RESP DISTRESS. BILATERAL BREATH SOUND RHONCHI TELE MONITOR REVEALS SR W PAC'S, PVC'S AND BBB HR 90. RIGHT NARES NGTF WITH JEVITY 1.2 @ 50 ML/HR, ZERO RESIDUAL. IV SITE ON LUIS ALBERTO PICC LINE WITH NS TKO AND DIPRIVAN @ 55 MCG/KG/MIN. F/C DRAINED W/ YELLOW CLEAR URINE. DRAINED VIA GRAVITY. PRESENT WITH PERIPHERAL PULSES. REPOSITIONED FOR SKIN MANAGEMENT. TEMPERATURE AT THIS TIME 99.1. KEPT PT CLEAN AND COMFORTABLE IN BED. WILL CLOSELY MONITOR.
[2018-04-02] MEDS: ATORVASTATIN 10 MG TABLET PO SCH (21:15)
[2018-04-03] VITALS (36 sets, daily range): BP systolic 101–157; BP diastolic 50–78
[2018-04-03] MEDS: PROPOFOL 100 ML IV PRN ×5 (01:35→20:57)
--- NOTE | 2018-04-03 02:00 | NUR ---
RN NOTES 01:48 AM PT TELE MONITOR REVEALED OCCASIONAL A- FLUTTER HR 104 THEN BACK TO SR WITH BBB, PAC'S AND PAC'S RIGHT. PT IS ASYMPTOMATIC. ZERO FLACC, PT ALREADY HAD AN EPISODE OCCASIONALLY SINCE THEN. WILL MONITOR CLOSELY.
[2018-04-03 04:53] LABS: BASOPHILS % (AUTO) 0.1 % (0.0-2.0); EOSINOPHILS % (AUTO) 5.2 % (0.0-6.0); HEMATOCRIT 22 % (33-45); HEMOGLOBIN 7.5 g/dL (11.5-14.8); LYMPHOCYTES # (AUTO) 0.8 /CMM (0.8-4.8); LYMPHOCYTES % (AUTO) 9.4 % (20.0-44.0); MEAN CORPUSCULAR HGB CONC 34 g/dl (31.0-36.0); MEAN CORPUSCULAR VOLUME 97 fL (82-100); MONOCYTES # (AUTO) 0.8 /CMM (0.1-1.30); MONOCYTES % (AUTO) 9.8 % (2.0-12.0); NEUTROPHILS # (AUTO) 6.2 /CMM (1.8-8.9); NEUTROPHILS % (AUTO) 75.5 % (43.0-81.0); PLATELET COUNT (AUTO) 266 /CMM (150-450); RDW COEFFICIENT OF VARIATION 16.5 (11.5-15.0); WHITE BLOOD COUNT (AUTO) 8.2 K/uL (4.3-11.0)
[2018-04-03 05:14] LABS: CALCIUM, SERUM 7.5 mg/dL (8.5-10.1); CARBON DIOXIDE 32 mmol/L (21-32); CHLORIDE 99 mmol/L (98-107); CREATININE 0.7 mg/dL (0.6-1.3); GLUCOSE 117 mg/dL (74-106); POTASSIUM 3.6 mmol/L (3.5-5.1); SODIUM SERUM 135 mmol/L (136-145); UREA NITROGEN, BLOOD 22 mg/dL (7-18)
--- NOTE | 2018-04-03 06:08 | NUR ---
RN NOTES PT REMAINED IN THE SAME STATUS. CONTINUE WITH DIPRIVAN TITRATED ORDERED. ON AND OFF LOW GRADE FEVER PRESENT. LAST TEMP CHECKED 97.7 DEG FAHRENHEIT NO ACUTE RESP DISTRESS. SUCTIONED FREQUENTLY. NGTF TOLERATED WELL W/ ZERO RESIDUAL. PICC LINE INTACT AND PATENT WITH GOOD BLOOD RETURN. F/C DRAINED VIA GRAVITY. PT WILL HAVE WEANING TRIAL IN AM PER POC. LATEST HGB LEVEL 7.5 HCT 22. NO ACTIVE BLEEDING NOTED, NO N/V/D. PT IS CLEANED AND COMFORTABLE. WILL ENDORSED CONTINUITY OFC ARE TO AM NURSE.
--- NOTE | 2018-04-03 07:12 | NUR ---
RN INITIAL NOTES: Rec'd pt on bed not in any distress (though a bit tachypneic RR 30's) sedated. Pt on MV via ETT, sating at 97%. On telemonitor, SR 88 bpm. Has LUIS ALBERTO PICC, TLC, w/ NS x TKO & Diprivan Drip x 50 mcg infusing well. Has NGT on R nares, on cont GTF Jevity 1.2 x 50 cc/hr infusing well, no residual noted upon checking. Has FC draining to BSB, adequate UOP. Provided comfort & safety measures. Isolation prec observed. Bed kept low & in locked pos. Call light placed w/in reach. Will cont to monitor & attend pt needs.
[2018-04-03] MEDS: ACETYLCYSTEINE 10% SOLN 400 MG/4 ML VIAL NEB SCH ×3 (07:35→23:21)
--- NOTE | 2018-04-03 08:15 | NUR ---
Pt on sedation vacation. Pt noted to show facial grimacing, RR started to increase at 30's. Per Dr. Gomez, no weaning trials at this time.
--- NOTE | 2018-04-03 09:10 | NUR ---
Pt seen & examined by Dr. Mallory.
[2018-04-03] MEDS: DOCUSATE SODIUM LIQ 100 MG/10 ML UDC NG SCH ×2 (09:19→17:06)
[2018-04-03] MEDS: BENAZEPRIL HCL 10 MG TABLET NG SCH (09:20)
[2018-04-03] MEDS: CARVEDILOL 3.125 MG TABLET PO SCH ×2 (09:20→20:48)
[2018-04-03] MEDS: HYDROGEL DRESSING 90 GM TUBE TP SCH (09:20)
[2018-04-03] MEDS: LACTOBACILLUS RHAMNOSUS GG 1 EACH CAP.SPRINK PO SCH ×2 (09:20→17:08)
[2018-04-03] MEDS: FUROSEMIDE 20 MG/2 ML VIAL IV SCH (09:20)
[2018-04-03] MEDS: PANTOPRAZOLE 40 MG VIAL IV SCH ×2 (09:20→20:48)
[2018-04-03] MEDS: Z GUARD REMEDY 2 OZ OINT TP SCH (09:21)
--- NOTE | 2018-04-03 11:41 | NUR ---
PT RECEIVED ORALLY INTUBATED ON MECHANICAL VENT W/ SETTINGS PER MD. VENT IN RED OUTLET, AMBUBAG AT BEDSIDE, VENT ALARMS CHECKED AND AUDIBLE. PT SX'ED AND LAVAGED PRN. MEDS GIVEN INLINE PER MD ORDER. BREATH SOUNDS EQUAL, DIMINISHED. ETT SECURED, PATENT AND CLEAN. PLAN IS TO CONTINUE CARE UNDER CURRENT MD ORDERS AND MONITOR FOR CHANGES.
[2018-04-03] MEDS: RIVAROXABAN 15 MG TABLET NG SCH (17:08)
[2018-04-03] MEDS: JEVITY 1.2 CAL 1,000 ML BOTTLE GT PRN (17:46)
--- NOTE | 2018-04-03 18:00 | NUR ---
Rec'd call from Kayden (son), per son he & his sister Lizbeth will discuss about re poss placement of trach & gastrostomy. They wanted to talk to the MD orourke over the phone. Lizbeth ph# [phone]
[2018-04-03] MEDS: LORAZEPAM INJ 2 MG/ML VIAL IV PRN ×2 (18:12→22:18)
--- NOTE | 2018-04-03 18:45 | NUR ---
RN CLOSING NOTES: Pt still is sedated. Pt tolerated MV settings via ETT, still episode w/ tachypnea. On telemonitor, SR w/ episode of A.flutter. LUIS ALBERTO PICC, TLC, flushing well w/ Diprivan Drip x 50 mcg infusing well. Tolerating current GTF via NGT on R nares, no residual noted w/in shift. FC draining to BSB, adequate UOP. Kept well rested. Needs attended. Isolation prec observed at all times. Bed kept low & in locked pos. Call light placed w/in reach. Will endorse to PM RN for MADDISON.
--- NOTE | 2018-04-03 19:30 | NUR ---
GLUE PLANT OPERATOR NOTE RECEIVED PT SLEEPING. INTUBATED VIA ETT 7.5 AND 22CM AT THE LIP WITH VENT SETTINGS WELL TOLERATED. HOB ELEVATED. TELE- AFIB 120. NG TUBE IN R NARE IN PLACE WITH NO RESIDUALS NOTED. ON ASPIRATION PRECAUTIONS. ISOLATION PRECAUTIONS OBSERVED. BHANDARI IN PLACE AND DRAINING. IV LUIS ALBERTO PICC CLEAN, DRY WITH DIPRIVAN INFUSING. COOLING MEASURES IN PLACE WITH 100.1 ORAL TEMP. WILL MONITOR.
--- NOTE | 2018-04-03 20:23 | NUR ---
RECEIVED PT INTUBATED 7.5 ETT SECURED AT 24CM AT THE LIP WITH BITE BLOCK IN PLACE. SX'D FOR MOD AMT OF THICK YELLOW SECRETIONS. VENT ALARMS SET AND AUDIBLE. AMBU BAG AT BEDSIDE. VENT PLUGGED INTO RED OUTLET. WILL CONTINUE TO MONITOR. Addendum: 04/03/18 at 2024 by KOMAL BROWN RT Amended: Links added.
[2018-04-03] MEDS: ATORVASTATIN 10 MG TABLET PO SCH (21:05)
[2018-04-04] VITALS (38 sets, daily range): BP systolic 107–167; BP diastolic 46–88
[2018-04-04] MEDS: PROPOFOL 100 ML IV PRN ×4 (02:25→21:28)
[2018-04-04 04:50] LABS: CALCIUM, SERUM 7.6 mg/dL (8.5-10.1); CARBON DIOXIDE 31 mmol/L (21-32); CHLORIDE 98 mmol/L (98-107); CREATININE 0.5 mg/dL (0.6-1.3); GLUCOSE 115 mg/dL (74-106); POTASSIUM 3.6 mmol/L (3.5-5.1); SODIUM SERUM 133 mmol/L (136-145); UREA NITROGEN, BLOOD 20 mg/dL (7-18)
[2018-04-04 06:26] LABS: BASOPHILS % (AUTO) 1.1 % (0.0-2.0); EOSINOPHILS % (AUTO) 5.9 % (0.0-6.0); HEMATOCRIT 21 % (33-45); HEMOGLOBIN 7.5 g/dL (11.5-14.8); LYMPHOCYTES % (AUTO) 10.6 % (20.0-44.0); MEAN CORPUSCULAR HGB CONC 35 g/dl (31.0-36.0); MEAN CORPUSCULAR VOLUME 96 fL (82-100); MONOCYTES % (AUTO) 9.8 % (2.0-12.0); NEUTROPHILS % (AUTO) 72.6 % (43.0-81.0); PLATELET COUNT (AUTO) 273 /CMM (150-450); RDW COEFFICIENT OF VARIATION 16.8 (11.5-15.0); RED BLOOD CELL COUNT(AUTO) 2.22 MIL/uL (4.0-5.2); WHITE BLOOD COUNT (AUTO) 7.4 K/uL (4.3-11.0)
--- NOTE | 2018-04-04 07:12 | NUR ---
RN INITIAL NOTES: Rec'd pt on bed not in any distress, sedated. Pt on MV via ETT, sating at 98%. On telemonitor, SR w/ episode of A.flutter & Afib 86 bpm. Has LUIS ALBERTO PICC, TLC, w/ NS x TKO & Diprivan Drip x 50 mcg infusing well. Has NGT on R nares, on cont GTF Jevity 1.2 x 50 cc/hr infusing well, no residual noted upon checking. Has FC draining to BSB, adequate yellowish UOP. Provided comfort & safety measures. Isolation prec observed. Bed kept low & in locked pos. Call light placed w/in reach. Will cont to monitor & attend pt needs.
--- NOTE | 2018-04-04 07:15 | NUR ---
VOCAL MUSIC INSTRUCTOR NOTE PT REMAINED STABLE DURING SHIFT. ETT IN PLACE WITH SETTINGS WELL TOLERATED. NG TUBE IN PLACE AND NO RESIDUALS NOTED. HOB ELEVATED. ALL NEEDS ATTENDED TO PROMPTLY. WILL ENDORSE TO NEXT SHIFT FOR CONTINUITY OF CARE.
[2018-04-04] MEDS: ACETYLCYSTEINE 10% SOLN 400 MG/4 ML VIAL NEB SCH ×3 (07:40→23:14)
--- NOTE | 2018-04-04 08:00 | NUR ---
Pt on sedation vacation, pt noted to be non responsive w/ stimuli though still tachypneic and increased BP. Per Dr. Krishnamurthy if VS remains elevated, restart Diprivan drip.
[2018-04-04] MEDS: DOCUSATE SODIUM LIQ 100 MG/10 ML UDC NG SCH ×2 (08:32→17:14)
[2018-04-04] MEDS: PANTOPRAZOLE 40 MG VIAL IV SCH ×2 (08:33→21:28)
[2018-04-04] MEDS: CARVEDILOL 3.125 MG TABLET PO SCH ×2 (08:33→21:29)
[2018-04-04] MEDS: BENAZEPRIL HCL 10 MG TABLET NG SCH (08:34)
[2018-04-04] MEDS: FUROSEMIDE 20 MG/2 ML VIAL IV SCH (08:34)
[2018-04-04] MEDS: LACTOBACILLUS RHAMNOSUS GG 1 EACH CAP.SPRINK PO SCH ×2 (08:35→17:14)
[2018-04-04] MEDS: HYDROGEL DRESSING 90 GM TUBE TP SCH (08:35)
[2018-04-04] MEDS: Z GUARD REMEDY 2 OZ OINT TP SCH (08:36)
[2018-04-04 08:39] LABS: ABG BASE EXCESS 4.8 mmol/L; ABG OXYGEN SATURATION 95.7 % (92.0-98.5); ABG PCO2 38.7 mmHg (35.0-45.0); ABG PH 7.485 (7.350-7.450); ABG PO2 91.4 mmHg (75.0-100.0); AaDO2 149.3 mmHg; COHb 0.2 % (0.5-1.5); MetHb 1.3 % (0.0-1.5); O2Hb 94.3 % (94.0-97.0); PEEP,BG 5 cm H2O; SITE, ABG Right Radial; VT, ABG 400 mL
[2018-04-04 09:20] LABS: BAND % (MANUAL) 1 % (0.0-5.0); EOSINOPHILS % (MANUAL) 2 % (0-4); LYMPHOCYTES % (MANUAL) 11 % (16-48); MONOCYTES % (MANUAL) 4 % (0-11.0); NEUTROPHILS % (MANUAL) 82 (42-76)
--- NOTE | 2018-04-04 09:33 | NUR ---
Pt seen & examined by Dr. Krishnamurthy. Made him aware that pt is off sedation but still not waking up. Pt still tachypneic. Per MD, put her back on sedation if pt's RR persist to be high. MD informed that son & dtr wishes to talk to the MD over the phone to discuss re: POC (trach/PEG).
--- NOTE | 2018-04-04 10:23 | NUR ---
Dr. Krishnamurthy was able to talk to the son & dtr of the pt over the phone via conference call. Family agreed for trach & PEG placement. Family will visit the pt today & requested pt to be off sedation despite of pt being tacypneic. is aware.
--- NOTE | 2018-04-04 11:20 | NUR ---
Dtr Lizbeth visited while pt off sedation. Pt noted A.flutter w/ HR 130's, RR 38 bpm. Explained to the dtr need to restart on sedation w/ verbalization of understanding.
--- NOTE | 2018-04-04 11:30 | NUR ---
CAR PUSHER NOTES RECEIVED ORDER UNDER DR BENOIT TO START AMIODARONE DRIP PER PROTOCOL DUE TO AFLUTTER 120-130'S .
[2018-04-04] MEDS ORDERED: AMIODARONE 150 MG in IV D5W 100 ML IV ONE (12:00)
[2018-04-04] MEDS ORDERED: AMIODARONE 900 MG in IV D5W 482 ML IV PRN (12:00)
--- NOTE | 2018-04-04 12:28 | NUR ---
Pt seen & examined by Dr. Mallory & updated about pt condition. Per , DC previous order of Amio drip. Instead start Sotalol 80 mg via GT BID and change Xarelto to Eliquis 2.5mg via GT BID. Hold Eliquis at least 48 hours before trach procedure.
[2018-04-04] MEDS ORDERED: APIXABAN 2.5 MG TABLET PO SCH (12:30)
[2018-04-04] MEDS: SOTALOL HCL 80 MG TABLET PO SCH ×2 (13:46→17:15)
[2018-04-04] MEDS: APIXABAN 2.5 MG TABLET PO SCH (17:15)
[2018-04-04] MEDS: JEVITY 1.2 CAL 1,000 ML BOTTLE GT PRN (17:22)
--- NOTE | 2018-04-04 19:00 | NUR ---
RN CLOSING NOTES: Pt still is sedated. Pt tolerated MV settings via ETT, still episode w/ tachypnea. On telemonitor, SR. LUIS ALBERTO PICC, TLC, flushing well w/ Diprivan Drip x 50 mcg infusing well. Tolerating current GTF via NGT on R nares, no residual noted w/in shift. FC draining to BSB, adequate UOP but was noted greenish in color. Kept well rested. Needs attended. Isolation prec observed at all times. Bed kept low & in locked pos. Call light placed w/in reach. Will endorse to PM RN for MADDISON. 1902H Riley Monique signed consent for trach and GT placement.
--- NOTE | 2018-04-04 19:45 | NUR ---
LACTATION COORDINATOR NOTE PT RECEIVED INTUBATED AND SEDATED. ETT 7.5 AND 22 AT THE LIP SECURED IN PLACE AND VENT SETTINGS WELL TOLERATED. HOB ELEVATED. NG TUBE IN RIGHT NARE SECURED IN PLACE WITH POSITIVE PLACEMENT AND NO RESIDUALS NOTED. ON ASPIRATION PRECAUTIONS. ISOLATION PRECAUTIONS OBSERVED. IV LUIS ALBERTO PICC PATENT AND DRY WITH FLUIDS INFUSING. WILL CONTINUE TO MONITOR.
[2018-04-04] MEDS: ATORVASTATIN 10 MG TABLET PO SCH (21:29)
[2018-04-04] MEDS: MAGNESIUM HYDROXIDE 30 ML UDC PEG PRN (21:33)
--- NOTE | 2018-04-04 21:33 | NUR ---
RECEIVED PT INTUBATED 7.5 ETT SECURED AT 24CM AT THE LIP WITH BITE BLOCK IN PLACE. SX'D FOR MOD AMT OF THICK HUERTA SECRETIONS. VENT ALARMS SET AND AUDIBLE. AMBU BAG AT BEDSIDE. VENT PLUGGED INTO RED OUTLET. WILL CONTINUE TO MONITOR. Addendum: 04/04/18 at 2134 by KOMAL BROWN RT Amended: Links added.
[2018-04-05] VITALS (61 sets, daily range): BP systolic 76–139; BP diastolic 37–82
--- NOTE | 2018-04-05 02:00 | NUR ---
PLANT MAINTENANCE TECHNICIAN NOTE NO ACUTE DISTRESS NOTED. DIPRIVAN DECREASED TO 30MCG/KG/MIN AND TOLERATING WELL. TELE-SR 80'S AND RESPIRATIONS 25-34. IV LUIS ALBERTO PICC PATENT AND CLEAN. WILL MONITOR.
[2018-04-05 05:04] LABS: BASOPHILS # (AUTO) 0.1 /CMM (0.0-0.2); BASOPHILS % (AUTO) 0.9 % (0.0-2.0); EOSINOPHILS % (AUTO) 5.1 % (0.0-6.0); HEMATOCRIT 25 % (33-45); HEMOGLOBIN 7.6 g/dL (11.5-14.8); LYMPHOCYTES # (AUTO) 0.7 /CMM (0.8-4.8); LYMPHOCYTES % (AUTO) 9.1 % (20.0-44.0); MEAN CORPUSCULAR HGB CONC 31 g/dl (31.0-36.0); MEAN CORPUSCULAR VOLUME 99 fL (82-100); MONOCYTES # (AUTO) 0.6 /CMM (0.1-1.30); NEUTROPHILS # (AUTO) 5.8 /CMM (1.8-8.9); NEUTROPHILS % (AUTO) 76.9 % (43.0-81.0); PLATELET COUNT (AUTO) 330 /CMM (150-450); RDW COEFFICIENT OF VARIATION 17.5 (11.5-15.0); RED BLOOD CELL COUNT(AUTO) 2.51 MIL/uL (4.0-5.2); WHITE BLOOD COUNT (AUTO) 7.6 K/uL (4.3-11.0)
[2018-04-05] MEDS: PROPOFOL 100 ML IV PRN ×3 (05:04→18:42)
[2018-04-05 05:21] LABS: CALCIUM, SERUM 7.7 mg/dL (8.5-10.1); CARBON DIOXIDE 32 mmol/L (21-32); CHLORIDE 98 mmol/L (98-107); CREATININE 0.5 mg/dL (0.6-1.3); GLUCOSE 118 mg/dL (74-106); POTASSIUM 4.1 mmol/L (3.5-5.1); SODIUM SERUM 134 mmol/L (136-145); UREA NITROGEN, BLOOD 21 mg/dL (7-18)
--- NOTE | 2018-04-05 07:10 | NUR ---
PROPERTY CONDITION ASSESSOR NOTE PT REMAINED STABLE DURING SHIFT. NO ACUTE DISTRESS NOTED. VENT SETTINGS WELL TOLERATED. HOB ELEVATED. ALL NEEDS ATTENDED TO PROMPTLY. KEPT CLEAN AND DRY. TURNED AND REPOSITIONED Q2H. ETT IN PLACE AND SECURED. WILL ENDORSE TO NEXT SHIFT FOR CONTINUITY OF CARE.
--- NOTE | 2018-04-05 07:49 | NUR ---
INITIAL SHEET METAL FABRICATOR NOTE RCVD PT SEDATED, INTUBATED, OFF RESTRAINTS. SR ON MONITOR WITH OCCASIONAL PVCs AND PACs. TOLERATING ORDERED VENT SETTINGS. NG-TUBE PLACEMENT VERIFIED BY AUSCULTATION/ASPIRATION. NO RESIDUAL OBTAINED. BHANDARI TO GRAVITY DRAINING CLEAR, YELLOW URINE. LUIS ALBERTO PICC C/D/I/PATENT. NO S/O INFILTRATION/PHLEBITIS OBSERVED. WILL CONTINUE TO MONITOR PT FOR SAFETY AND COMFORT. BED IN LOW AND LOCKED POSITION.
[2018-04-05] MEDS: ACETYLCYSTEINE 10% SOLN 400 MG/4 ML VIAL NEB SCH ×3 (07:56→22:54)
--- NOTE | 2018-04-05 08:11 | NUR ---
RT PT RECEIVED ORALLY INTUBATED 7.5ETT AT 24CM AT THE LIP LINE ON THE VENT WITH NOTED SETTINGS. PT RESPONDS TO STIMULI WHEN SX'D. VENT ALARMS ARE SET AND AUDIBLE WITH BVM BY BEDSIDE. PAYMENT ANALYST CUFF PRESSURE NOTED. VENT IS PLUGGED INTO RED OUTLET WITH BVM BY BEDSIDE. SX'D MODERATE THICK PALE YELLOW SECRETIONS. NO RESPIRATORY DISTRESS NOTED AT THIS TIME, WILL CONTINUE TO MONITOR. Addendum: 04/05/18 at 0850 by STEPH AKPOOR RT Amended: Links added.
[2018-04-05] MEDS: CARVEDILOL 3.125 MG TABLET PO SCH ×2 (08:28→21:04)
[2018-04-05] MEDS: FUROSEMIDE 20 MG/2 ML VIAL IV SCH (08:28)
[2018-04-05] MEDS: DOCUSATE SODIUM LIQ 100 MG/10 ML UDC NG SCH ×2 (08:28→16:25)
[2018-04-05] MEDS: PANTOPRAZOLE 40 MG VIAL IV SCH ×2 (08:28→21:02)
[2018-04-05] MEDS: LACTOBACILLUS RHAMNOSUS GG 1 EACH CAP.SPRINK PO SCH ×2 (08:28→16:25)
[2018-04-05] MEDS: BENAZEPRIL HCL 10 MG TABLET NG SCH (08:29)
[2018-04-05] MEDS: SOTALOL HCL 80 MG TABLET PO SCH ×2 (08:29→17:00)
[2018-04-05] MEDS: APIXABAN 2.5 MG TABLET PO SCH ×2 (08:29→16:25)
[2018-04-05] MEDS: HYDROGEL DRESSING 90 GM TUBE TP SCH (08:33)
[2018-04-05] MEDS: Z GUARD REMEDY 2 OZ OINT TP SCH (08:33)
--- NOTE | 2018-04-05 10:11 | NUR ---
TRAFFIC MAINTENANCE OFFICER NOTE SEDATION VACATION STARTED PER DR. THAKKAR WILL ATTEMPT WEANING TRIAL AT 1400. RT SIMRAN INFORMED. PT'S SON ALINE CALLED TO INFORM HIM OF WEANING. WILL CONTINUE TO MONITOR PT .
--- NOTE | 2018-04-05 12:59 | NUR ---
FORM SETTER/DRIVER NOTE SEDATION VACATION STARTED AT 1000 PT'S VITAL SIGNS TOLERATING WELL AT THAT TIME, HR AND RR STARTED TRENDING UP, PT OBSERVED GRIMACING TO PAINFUL STIMULI BUT NOT OPENING EYES, OR FOLLOWING COMMANDS. PT PLACED BACK ON SEDATION WILL CONTINUE TO MONITOR. DR. CY CANDELARIO.
[2018-04-05] MEDS: NOREPINEPHRINE 16 MG in IV D5W 500 ML IV PRN (15:08)
[2018-04-05] MEDS: JEVITY 1.2 CAL 1,000 ML BOTTLE GT PRN (16:24)
--- NOTE | 2018-04-05 18:48 | NUR ---
COMPLAINT INVESTIGATOR NOTE PT REMAINS SEDATED, INTUBATED TOLERATING ORDERED VENT SETTINGS WELL. PT'S SEDATION TITRATED UP TO 40MCG DUE TO PT OBSERVED COUGHING AND FROWNING. LEVO TITRATED OFF, SBP HOLDING UP. PT REMAINS ON SR WITH OCCASIONAL PAC/PVCs. BHANDARI TO GRAVITY DRAINING CLEAR, YELLOW URINE WITH GREEN TINT. TOLERATING ORDERED TUBE FEEDING RATE. NO RESIDUAL OBTAINED DURING SHIFT. IV SITE C/D/I/PATENT. NO S/O INFILTRATION/PHLEBITIS OBSERVED. PT'S CARE ENDORSED TO ADMISSIONS MANAGER RN RN FOR CONTINUITY OF CARE. BED IN LOW AND LOCKED POSITION. PER DR. THAKKAR'S REQUEST PT'S DAUGHTER, BRANDI CALLED AND REQUESTED TO COME TO SPEAK WITH HIM TOMORROW AT 1130 PRIOR TO SCHEDULING PT FOR TRACH PLACEMENT. PER DR. OWENS PT'S TENTATIVELY SCHEDULED FOR PEG PLACEMENT THIS COMING MONDAY AND NEED TO HOLD ELIQUIS STARTING 04/06 AM.
--- NOTE | 2018-04-05 19:12 | NUR ---
PT RECEIVED ORALLY INTUBATED 7.5ETT AT 24CM AT THE LIP LINE ON THE VENT WITH NOTED SETTINGS. PT RESPONDS TO STIMULI WHEN SUCTIONED. VENT ALARMS ARE SET AND AUDIBLE WITH AMBU BAG @ BEDSIDE. BLINDSTITCH LINING FELLER CUFF PRESSURE NOTED. VENT IS PLUGGED INTO RED OUTLET. SX'D MODERATE THICK PALE YELLOW SECRETIONS. NO RESPIRATORY DISTRESS NOTED AT THIS TIME, WILL CONTINUE TO MONITOR.
--- NOTE | 2018-04-05 19:30 | NUR ---
TRANSLATOR NOTE PT RECEIVED INTUBATED WITH ETT IN PLACE AND SECURED. HOB ELEVATED. VENT SETTINGS WELL TOLERATED AND SATURATING WELL. NG TUBE IN PLACE AND NO RESIDUALS NOTED. WILL CONTINUE TO MONITOR.
[2018-04-05] MEDS: ATORVASTATIN 10 MG TABLET PO SCH (21:02)
[2018-04-06] VITALS (59 sets, daily range): BP systolic 91–137; BP diastolic 16–93
[2018-04-06] MEDS: PROPOFOL 100 ML IV PRN ×4 (01:37→18:17)
[2018-04-06 04:32] LABS: BASOPHILS % (AUTO) 0.2 % (0.0-2.0); EOSINOPHILS % (AUTO) 4.1 % (0.0-6.0); HEMATOCRIT 22 % (33-45); LYMPHOCYTES # (AUTO) 0.7 /CMM (0.8-4.8); LYMPHOCYTES % (AUTO) 9.4 % (20.0-44.0); MEAN CORPUSCULAR HGB CONC 32 g/dl (31.0-36.0); MEAN CORPUSCULAR VOLUME 98 fL (82-100); MONOCYTES # (AUTO) 0.4 /CMM (0.1-1.30); NEUTROPHILS # (AUTO) 6.5 /CMM (1.8-8.9); NEUTROPHILS % (AUTO) 81.3 % (43.0-81.0); PLATELET COUNT (AUTO) 295 /CMM (150-450); RDW COEFFICIENT OF VARIATION 17.6 (11.5-15.0); RED BLOOD CELL COUNT(AUTO) 2.24 MIL/uL (4.0-5.2); WHITE BLOOD COUNT (AUTO) 7.9 K/uL (4.3-11.0)
[2018-04-06 06:08] LABS: BAND % (MANUAL) 15 % (0.0-5.0); EOSINOPHILS % (MANUAL) 4 % (0-4); LYMPHOCYTES % (MANUAL) 14 % (16-48); MONOCYTES % (MANUAL) 4 % (0-11.0); NEUTROPHILS % (MANUAL) 63 (42-76)
--- NOTE | 2018-04-06 07:01 | NUR ---
KILN LOADER NOTE PT REMAINED STABLE DURING SHIFT. NO ACUTE DISTRESS NOTED. ALL NEEDS ATTENDED TO PROMPTLY. VENT SETTINGS WELL TOLERATED. ALL SAFETY MEASURES IN PLACE. KEPT CLEAN AND DRY. SUCTIONED NEEDED. WILL ENDORSE TO NEXT SHIFT FOR CONTINUITY OF CARE.
--- NOTE | 2018-04-06 07:10 | NUR ---
Report received from Carmen ROBERTS for MADDISON. remains stable on vent and drips as ordered.
[2018-04-06] MEDS: ACETYLCYSTEINE 10% SOLN 400 MG/4 ML VIAL NEB SCH ×3 (07:59→23:39)
--- NOTE | 2018-04-06 08:00 | NUR ---
Received p4t in ICU 255 on vent with 7.5 ETT, 22cm at lip at previous settings, tolerating well. Breath sounds wheezing on right upper and lower lobes, rhonchi on left upper and lower lobes. Hypoactive bowel sounds. NGT R nare patent, placement verified, Jevity feeding running at 50ml/hr with 10ml residual. Hook cath draining clear yellow urine. Skin hot, dry, with dressing in place on sacral wound. LUIS ALBERTO PICC infusing propofol at 40mcg/kg/min, tolerating well. Pt adequately sedated at this time. Anjel heels offloaded and pt turned. On tele monitor showing SR with occasional PVCs and PACs. Continue to monitor. Addendum: 04/06/18 at 0814 by CHIVO JUNIOR RN HOB elevated
--- NOTE | 2018-04-06 08:05 | NUR ---
RT Vanush at bedside for tx
--- NOTE | 2018-04-06 08:45 | NUR ---
Dr Mallory at bedside. Notified MD of pt's fever. Per MD, no antipyretics or active cooling measures at this time. Addendum: 04/06/18 at 1125 by CHIVO JUNIOR RN also notified MD of hemoglobin 7.0, per no transfusion
[2018-04-06] MEDS: APIXABAN 2.5 MG TABLET PO SCH ×2 (09:00→17:00)
[2018-04-06] MEDS: SOTALOL HCL 80 MG TABLET PO SCH ×2 (09:23→17:31)
[2018-04-06] MEDS: PANTOPRAZOLE 40 MG VIAL IV SCH ×2 (09:24→20:29)
[2018-04-06] MEDS: FUROSEMIDE 20 MG/2 ML VIAL IV SCH (09:24)
[2018-04-06] MEDS: DOCUSATE SODIUM LIQ 100 MG/10 ML UDC NG SCH ×2 (09:24→17:00)
[2018-04-06] MEDS: BENAZEPRIL HCL 10 MG TABLET NG SCH (09:24)
[2018-04-06] MEDS: CARVEDILOL 3.125 MG TABLET PO SCH ×2 (09:25→21:04)
[2018-04-06] MEDS: Z GUARD REMEDY 2 OZ OINT TP SCH (09:25)
[2018-04-06] MEDS: HYDROGEL DRESSING 90 GM TUBE TP SCH (09:25)
[2018-04-06] MEDS: LACTOBACILLUS RHAMNOSUS GG 1 EACH CAP.SPRINK PO SCH ×2 (09:25→17:30)
--- NOTE | 2018-04-06 09:39 | NUR ---
Attempted sedation vacation. Propofol drip decreased from 40mcg/kg/min to 35. Within 10 minutes pt's respiratory rate increased to 40rpm. Rate returned to 40mcg.
--- NOTE | 2018-04-06 11:36 | NUR ---
texted Dr Krause from charge nurse phone to verify standing transfusion order despite Dr Mallory stating no transfusion this morning. OK per Dr Krause to hold transfusion.
--- NOTE | 2018-04-06 11:55 | NUR ---
Dr Gomez speaking with pt's daughter at bedside, son is on the phone
--- NOTE | 2018-04-06 12:15 | NUR ---
increased propofol drip to 45mcg/kg/min for sedation d/t tachypnea
--- NOTE | 2018-04-06 12:40 | NUR ---
increased propofol drip to 50mcg/kg/min for sedation d/t tachypnea
[2018-04-06] MEDS ORDERED: VANCOMYCIN 1 GM in IV D5W 250 ML IV ONE (13:00)
--- NOTE | 2018-04-06 13:13 | NUR ---
text sent to Dr Mallory on charge nurse phone regarding antibiotics. awaiting response.
[2018-04-06] MEDS ORDERED: FEE PK DOSING 1 MIN EA MC ONE (13:23)
--- NOTE | 2018-04-06 14:15 | NUR ---
no response from Dr Mallory. Per Dr Gomez, if no response within 1 hour, initiate antibiotics.
[2018-04-06] MEDS: VANCOMYCIN 0.75 GM in IV D5W 250 ML IV SCH (14:42)
[2018-04-06] MEDS: MEROPENEM 500 MG in IV NS 0.9% 50 ML IV SCH ×2 (15:40→22:30)
--- NOTE | 2018-04-06 16:00 | NUR ---
remains sedated at 50mcg/kg/min for adequate sedation, though pt remains tachypneic, otherwise VSS. shanel-care rendered, catheter care completed, and linens changed.
--- NOTE | 2018-04-06 19:08 | NUR ---
report given to Johnna ROBERTS for wanda
--- NOTE | 2018-04-06 19:15 | NUR ---
ICU/RN RECEIVED PT ON VENT VIA ORAL ETT,ON DIPRIVAN DRIP AT 50MCG/KG/MINUTE,GRIMACES WHEN SUCTIONED.ON TUBE FEEDING OF JEVITY AT 50ML/HR,NO RESIDUAL OBTAINED.V9UE=231.2.ICE BAG TO BILATERAL ARMPIT AND BILATERAL FEMORAL.
--- NOTE | 2018-04-06 19:43 | NUR ---
PT RECEIVED ORALLY INTUBATED VIA ETT SZ 7.5 SECURED @ 24CM AT THE LIP. PT ON [facility] VENT ON AC MODE PT RESPONDS TO STIMULI WHEN SX'D. SX'D MODERATE THICK PALE YELLOW SECRETIONS. NO RESPIRATORY DISTRESS NOTED AT THIS TIME. ALARMS ARE SET AND AUDIBLE, VENT PLUGGED INTO RED OUTLET, AMBU BAG BEDSIDE WILL CONTINUE TO MONITOR. Addendum: 04/07/18 at 0529 by SALBADOR MEJIA RT Amended: Links added.
--- NOTE | 2018-04-06 21:00 | NUR ---
ICU/RN TEMP.DOWN TO 100.6 AFTER COOLING MEASURES.
[2018-04-06] MEDS: ATORVASTATIN 10 MG TABLET PO SCH (21:38)
[2018-04-06] MEDS: IV NS 0.9% 250 ML IV PRN (22:30)
[2018-04-07] VITALS (79 sets, daily range): BP systolic 80–136; BP diastolic 36–84
[2018-04-07] MEDS: JEVITY 1.2 CAL 1,000 ML BOTTLE GT PRN ×2 (00:01→08:21)
[2018-04-07] MEDS: PROPOFOL 100 ML IV PRN ×6 (00:01→22:26)
[2018-04-07] MEDS: VANCOMYCIN 0.75 GM in IV D5W 250 ML IV SCH ×2 (01:57→14:24)
--- NOTE | 2018-04-07 02:00 | NUR ---
ICU/RN DIPRIVAN DECREASED TO 40MCG/KG/MIN.SBP=84 AND PT TOO SEDATED.
[2018-04-07 04:46] LABS: CARBON DIOXIDE 31 mmol/L (21-32); CHLORIDE 101 mmol/L (98-107); CREATININE 0.6 mg/dL (0.6-1.3); GLUCOSE 115 mg/dL (74-106); POTASSIUM 3.1 mmol/L (3.5-5.1); SODIUM SERUM 136 mmol/L (136-145); UREA NITROGEN, BLOOD 19 mg/dL (7-18)
[2018-04-07 05:00] LABS: BASOPHILS % (AUTO) 0.1 % (0.0-2.0); EOSINOPHILS % (AUTO) 4.4 % (0.0-6.0); HEMATOCRIT 23 % (33-45); HEMOGLOBIN 7.3 g/dL (11.5-14.8); LYMPHOCYTES # (AUTO) 1.5 /CMM (0.8-4.8); LYMPHOCYTES % (AUTO) 11.8 % (20.0-44.0); MEAN CORPUSCULAR HGB CONC 32 g/dl (31.0-36.0); MEAN CORPUSCULAR VOLUME 98 fL (82-100); MONOCYTES # (AUTO) 1.1 /CMM (0.1-1.30); MONOCYTES % (AUTO) 8.5 % (2.0-12.0); NEUTROPHILS # (AUTO) 9.4 /CMM (1.8-8.9); NEUTROPHILS % (AUTO) 75.2 % (43.0-81.0); PLATELET COUNT (AUTO) 285 /CMM (150-450); RDW COEFFICIENT OF VARIATION 17.3 (11.5-15.0); RED BLOOD CELL COUNT(AUTO) 2.32 MIL/uL (4.0-5.2); WHITE BLOOD COUNT (AUTO) 12.4 K/uL (4.3-11.0)
[2018-04-07 05:53] LABS: BAND % (MANUAL) 10 % (0.0-5.0); EOSINOPHILS % (MANUAL) 9 % (0-4); LYMPHOCYTES % (MANUAL) 20 % (16-48); MONOCYTES % (MANUAL) 8 % (0-11.0); MYELOCYTES % 1 % (0-0); NEUTROPHILS % (MANUAL) 52 (42-76)
--- NOTE | 2018-04-07 06:21 | NUR ---
ICU/RN BACK ON AT 50MCG/KG/MINUTE PT KEEPS BUCKING THE VENT,RESPONDS TO LIGHT TOUCH.SUCTIONED BY RT FOR MODERATE AMT PALE YELLOW SECRETIONS FR ETT AND MODERATE THICK WHITE SECRETIONS FROM MOUTH.MONITOR SHOWED NSR W/OCCASIONAL TO FREQUENT PAC'S AND PVC'S.
[2018-04-07] MEDS: MEROPENEM 500 MG in IV NS 0.9% 50 ML IV SCH ×3 (06:36→22:26)
[2018-04-07] MEDS: ACETYLCYSTEINE 10% SOLN 400 MG/4 ML VIAL NEB SCH ×3 (08:07→23:37)
--- NOTE | 2018-04-07 08:20 | NUR ---
UNABLE TO DO SEDATION VACATION- UPON DECREASING PROPOFOL PER PROTOCOL, PATIENT NOTED TO BE TACHYPNEIC WITH RR OF > 30, USE OF ACCESSORY MUSCLES. UNABLE TO OBTAIN BASELINE NEURO ASSESSMENT. PT WITH + GAG, COUGH REFLEX, RESPONDS TO PAINFUL STIMULI. PROPOFOL TITRATED BACK TO 50 MCG- PATIENT NOTED TO BE SEDATED AT THE MOMENT.
[2018-04-07] MEDS: LACTOBACILLUS RHAMNOSUS GG 1 EACH CAP.SPRINK PO SCH ×2 (08:33→17:38)
[2018-04-07] MEDS: DOCUSATE SODIUM LIQ 100 MG/10 ML UDC NG SCH ×2 (08:33→17:38)
[2018-04-07] MEDS: PANTOPRAZOLE 40 MG VIAL IV SCH ×2 (08:34→20:24)
[2018-04-07] MEDS: CARVEDILOL 3.125 MG TABLET PO SCH ×2 (09:00→21:04)
[2018-04-07] MEDS: BENAZEPRIL HCL 10 MG TABLET NG SCH (09:00)
[2018-04-07] MEDS: APIXABAN 2.5 MG TABLET PO SCH ×2 (09:00→17:00)
[2018-04-07] MEDS: SOTALOL HCL 80 MG TABLET PO SCH ×2 (09:00→17:41)
--- NOTE | 2018-04-07 09:30 | NUR ---
UNABLE TO DO SEDATION VACATION- UPON DECREASING PROPOFOL PER PROTOCOL, PATIENT NOTED TO BE TACHYPNEIC WITH RR OF > 30, USE OF ACCESSORY MUSCLES. UNABLE TO OBTAIN BASELINE NEURO ASSESSMENT. PT WITH + GAG, COUGH REFLEX, RESPONDS TO PAINFUL STIMULI. PROPOFOL TITRATED BACK TO 50 MCG- PATIENT NOTED TO BE SEDATED AT THE MOMENT DR THAKKAR NOTIFIED
[2018-04-07] MEDS: Z GUARD REMEDY 2 OZ OINT TP SCH (09:43)
[2018-04-07] MEDS: HYDROGEL DRESSING 90 GM TUBE TP SCH (09:43)
[2018-04-07] MEDS: FUROSEMIDE 20 MG/2 ML VIAL IV SCH (09:44)
[2018-04-07] MEDS: POTASSIUM CHLORIDE 20 MEQ POWDER PACKET GT SCH ×2 (10:44→12:20)
--- NOTE | 2018-04-07 17:26 | NUR ---
PER DR BENOIT, CHECK MAGNESIUM LEVEL TODAY CHECK BNP SPIRONOLACTONE 25 MG TABLET DAILY
[2018-04-07 18:06] LABS: MAGNESIUM 1.7 mg/dL (1.8-2.4)
--- NOTE | 2018-04-07 18:39 | NUR ---
DR BENOIT NOTIFIED THAT MAGNESIUM RESULTED -1.7 PER HIS ORDERS, MAGNESIUM SULFATE 3 GM IV VERBAL READBACK DONE
[2018-04-07] MEDS: Magnesium 1GM/D5W 100ML PREMIX 100 ML IV SCH ×3 (19:04→21:17)
--- NOTE | 2018-04-07 19:15 | NUR ---
ICU/RN RECEIVED REPORT FR DAY SHIFT RN,PT ON VENT VIA ORAL ETT,ON DIPRIVAN DRIP AT 50MCG/KG/MIN.RESP RATE OF 35/MINUTE,GRIMACES WHEN SUCTIONED.DOES NOT OPEN EYES TO COMMAND,DOES NOT TRACK.SUCTIONED FOR MODERATE TO LARGE AMOUNT THICK YELLOW TO HUERTA SECRETIONS W/ SALINE LAVAGE.LARGE AMT.ORAL SECRETIONS.
[2018-04-07] MEDS: ATORVASTATIN 10 MG TABLET PO SCH (22:16)
[2018-04-08] VITALS (63 sets, daily range): BP systolic 79–147; BP diastolic 40–95
--- NOTE | 2018-04-08 02:00 | NUR ---
ICU/RN MONITOR SHOWS SR WITH FREQUENT PAC'S AND PVC'S.CONTINUES TO SUCTION THICK PALE YELLOW TO HUERTA SECRETIONS.
[2018-04-08] MEDS: VANCOMYCIN 0.75 GM in IV D5W 250 ML IV SCH ×2 (02:14→14:11)
[2018-04-08] MEDS: PROPOFOL 100 ML IV PRN ×3 (03:48→22:22)
[2018-04-08 04:53] LABS: CALCIUM, SERUM 7.3 mg/dL (8.5-10.1); CARBON DIOXIDE 31 mmol/L (21-32); CHLORIDE 96 mmol/L (98-107); CREATININE 0.7 mg/dL (0.6-1.3); GLUCOSE 152 mg/dL (74-106); POTASSIUM 3.9 mmol/L (3.5-5.1); SODIUM SERUM 130 mmol/L (136-145); UREA NITROGEN, BLOOD 21 mg/dL (7-18)
[2018-04-08 05:11] LABS: EOSINOPHILS % (AUTO) 7.7 % (0.0-6.0); LYMPHOCYTES # (AUTO) 0.6 /CMM (0.8-4.8); LYMPHOCYTES % (AUTO) 5.6 % (20.0-44.0); MEAN CORPUSCULAR HGB CONC 33 g/dl (31.0-36.0); MEAN CORPUSCULAR VOLUME 98 fL (82-100); MONOCYTES # (AUTO) 0.8 /CMM (0.1-1.30); MONOCYTES % (AUTO) 7.6 % (2.0-12.0); NEUTROPHILS # (AUTO) 8.8 /CMM (1.8-8.9); NEUTROPHILS % (AUTO) 79.1 % (43.0-81.0); PLATELET COUNT (AUTO) 286 /CMM (150-450); RDW COEFFICIENT OF VARIATION 16.9 (11.5-15.0); RED BLOOD CELL COUNT(AUTO) 2.08 MIL/uL (4.0-5.2); WHITE BLOOD COUNT (AUTO) 11.2 K/uL (4.3-11.0)
[2018-04-08 05:16] LABS: HEMATOCRIT 20 % (33-45); HEMOGLOBIN 6.8 g/dL (11.5-14.8)
[2018-04-08 06:16] LABS: BAND % (MANUAL) 4 % (0.0-5.0); EOSINOPHILS % (MANUAL) 5 % (0-4); LYMPHOCYTES % (MANUAL) 4 % (16-48); METAMYELOCYTES % 1 % (0-0); MONOCYTES % (MANUAL) 9 % (0-11.0); NEUTROPHILS % (MANUAL) 77 (42-76)
[2018-04-08] MEDS: MEROPENEM 500 MG in IV NS 0.9% 50 ML IV SCH ×3 (06:51→22:20)
--- NOTE | 2018-04-08 07:00 | NUR ---
ICU/RN DR. BENOIT NOTIFIED OF RESULT OF HGB 6.8 AND SBP 0F 80''-100'S.
--- NOTE | 2018-04-08 07:32 | NUR ---
FACING END TRIMMER RECEIVED PATIENT FROM THE PREVIOUS SHIFT. PATIENT IS IN BED. RESTING COMFORTABLY. NO ACUTE DISTRESS NOTED. VENT SETTINGS REVIEWED AND VERIFIED. VITAL SINGS. STABLE. TURNED AND REPOSITIONED FOR COMFORT AND WOUND PREVENTION. WILL CONTINUE TO MONITOR AND PROVIDE CARE.
[2018-04-08] MEDS: ACETYLCYSTEINE 10% SOLN 400 MG/4 ML VIAL NEB SCH ×3 (07:36→23:38)
[2018-04-08] MEDS ORDERED: FUROSEMIDE 20 MG/2 ML VIAL IV PRN (08:00)
[2018-04-08] MEDS: HYDROGEL DRESSING 90 GM TUBE TP SCH (08:26)
[2018-04-08] MEDS: Z GUARD REMEDY 2 OZ OINT TP SCH (08:26)
[2018-04-08] MEDS: CARVEDILOL 3.125 MG TABLET PO SCH ×2 (08:27→20:41)
[2018-04-08] MEDS: BENAZEPRIL HCL 10 MG TABLET NG SCH (08:27)
[2018-04-08] MEDS: SOTALOL HCL 80 MG TABLET PO SCH ×2 (08:27→16:52)
[2018-04-08] MEDS: APIXABAN 2.5 MG TABLET PO SCH ×2 (08:27→16:47)
[2018-04-08] MEDS: PANTOPRAZOLE 40 MG VIAL IV SCH ×2 (08:30→20:40)
[2018-04-08] MEDS: SPIRONOLACTONE 25 MG TABLET GT SCH (08:30)
[2018-04-08] MEDS: DOCUSATE SODIUM LIQ 100 MG/10 ML UDC NG SCH ×2 (08:30→16:52)
[2018-04-08] MEDS: LACTOBACILLUS RHAMNOSUS GG 1 EACH CAP.SPRINK PO SCH ×2 (08:30→16:52)
[2018-04-08] MEDS: FUROSEMIDE 20 MG/2 ML VIAL IV SCH (08:37)
[2018-04-08 08:40] LABS: ABG BASE EXCESS 8.6 mmol/L; ABG OXYGEN SATURATION 94.2 % (92.0-98.5); ABG PCO2 45.2 mmHg (35.0-45.0); ABG PO2 78.7 mmHg (75.0-100.0); AaDO2 154.5 mmHg; COHb 0.3 % (0.5-1.5); MetHb 1.2 % (0.0-1.5); O2Hb 92.8 % (94.0-97.0); SITE, ABG Right Radial
[2018-04-08] MEDS ORDERED: diphenhydrAMINE HCL 50 MG/ML VIAL IV PRN (10:00)
[2018-04-08] MEDS: JEVITY 1.2 CAL 1,000 ML BOTTLE GT PRN (14:14)
[2018-04-08 15:35] LABS: HEMOGLOBIN 6.7 g/dL (11.5-14.8)
--- NOTE | 2018-04-08 19:30 | NUR ---
FRUIT THINNER MACHINE OPERATOR NOTE OK RECEIVED IN BED, INTUBATED AND ON MECH VENT WITH SETTINGS WELL TOLERATED. HOB ELEVATED AND ON ASPIRATION PRECAUTIONS. NG TUBE IN PLACE AND NO RESIDUALS NOTED. ISOLATION PRECAUTIONS OBSERVED. IV LUIS ALBERTO PICC PATENT WITH DIPRIVAN DRIP INFUSING. WILL CONTINUE TO MONITOR.
--- NOTE | 2018-04-08 19:55 | NUR ---
pt had 1 bm soft brown formed, pt cleaned and repositioned
--- NOTE | 2018-04-08 20:33 | NUR ---
PT RECEIVED INTUBATED ON VENT. TOLERATING SETTINGS. SX'D FOR MOD AMT OF THICK HUERTA SECRETIONS. VENT ALARMS SET AND AUDIBLE. AMBU BAG AT BEDSIDE. VENT PLUGGED INTO RED OUTLET. WILL CONTINUE TO MONITOR. Addendum: 04/08/18 at 2034 by KOMAL BROWN RT Amended: Links added.
[2018-04-08] MEDS: ATORVASTATIN 10 MG TABLET PO SCH (22:20)
--- NOTE | 2018-04-08 23:00 | NUR ---
pt noted in afib/aflutter hr 120s, pt repositioned for comfort, dr lua notified no new orders, will continue to monitor
[2018-04-09] VITALS (88 sets, daily range): BP systolic 78–143; BP diastolic 41–94
[2018-04-09] MEDS: IV NS 0.9% 250 ML IV PRN (01:04)
[2018-04-09] MEDS: VANCOMYCIN 0.75 GM in IV D5W 250 ML IV SCH ×2 (02:16→13:36)
[2018-04-09] MEDS: PROPOFOL 100 ML IV PRN ×4 (02:57→17:40)
[2018-04-09 04:23] LABS: BASOPHILS % (AUTO) 0.4 % (0.0-2.0); EOSINOPHILS % (AUTO) 8.9 % (0.0-6.0); HEMATOCRIT 26 % (33-45); HEMOGLOBIN 7.9 g/dL (11.5-14.8); LYMPHOCYTES % (AUTO) 8.8 % (20.0-44.0); MEAN CORPUSCULAR HGB CONC 30 g/dl (31.0-36.0); MEAN CORPUSCULAR VOLUME 96 fL (82-100); MONOCYTES # (AUTO) 1.1 /CMM (0.1-1.30); NEUTROPHILS # (AUTO) 7.9 /CMM (1.8-8.9); NEUTROPHILS % (AUTO) 71.9 % (43.0-81.0); PLATELET COUNT (AUTO) 316 /CMM (150-450); RDW COEFFICIENT OF VARIATION 17.5 (11.5-15.0); RED BLOOD CELL COUNT(AUTO) 2.71 MIL/uL (4.0-5.2)
[2018-04-09 04:35] LABS: CALCIUM, SERUM 7.5 mg/dL (8.5-10.1); CARBON DIOXIDE 31 mmol/L (21-32); CHLORIDE 96 mmol/L (98-107); CREATININE 0.7 mg/dL (0.6-1.3); GLUCOSE 111 mg/dL (74-106); POTASSIUM 4.3 mmol/L (3.5-5.1); SODIUM SERUM 130 mmol/L (136-145); UREA NITROGEN, BLOOD 23 mg/dL (7-18)
[2018-04-09] MEDS: MEROPENEM 500 MG in IV NS 0.9% 50 ML IV SCH ×3 (06:56→22:22)
--- NOTE | 2018-04-09 07:25 | NUR ---
SCENIC ARTIST NOTE VENT SETTINGS WELL TOLERATED. ALL NEEDS ATTENDED TO PROMPTLY. KEPT CLEAN AND DRY. REPOSITIONED Q2H. HOB ELEVATED. NPO STATUS MAINTAINED FROM MIDNIGHT. SPOKE WITH DR LUGO CONFIRMING TRACHEOSTOMY SURGERY IN THE AFTERNOON. WILL ENDORSE TO NEXT SHIFT FOR CONTINUITY OF CARE.
[2018-04-09] MEDS: ACETYLCYSTEINE 10% SOLN 400 MG/4 ML VIAL NEB SCH ×3 (07:49→23:33)
[2018-04-09] MEDS: SPIRONOLACTONE 25 MG TABLET GT SCH (08:15)
[2018-04-09] MEDS: LACTOBACILLUS RHAMNOSUS GG 1 EACH CAP.SPRINK PO SCH ×2 (08:16→16:41)
[2018-04-09] MEDS: BENAZEPRIL HCL 10 MG TABLET NG SCH (08:16)
[2018-04-09] MEDS: SOTALOL HCL 80 MG TABLET PO SCH ×2 (08:16→16:41)
[2018-04-09] MEDS: CARVEDILOL 3.125 MG TABLET PO SCH ×2 (08:16→21:00)
[2018-04-09] MEDS: DOCUSATE SODIUM LIQ 100 MG/10 ML UDC NG SCH ×2 (08:16→16:41)
--- NOTE | 2018-04-09 08:16 | NUR ---
WOUND CARE CONSULT: PT SEEN FOR RE-ASSESSMENT OF SACRAL DEEP TISSUE INJURY IN EVOLUTION, PRESENT ON ADMISSION. DR TARA REYNOLDS ON CASE FOR DEBRIDEMENT WHEN WOUND FULLY DEMARCATED. WILL SEE PRN. [facility]. ALL SKIN PROTECTION MEASURES IN PLACE AND DISCUSSED WITH NURSING STAFF. MD IN AGREEMENT WITH PLAN OF CARE. Addendum: 04/09/18 at 0818 by CHUCKY CORNEJO WNDNU Amended: Links added.
[2018-04-09] MEDS: APIXABAN 2.5 MG TABLET PO SCH ×2 (08:17→17:00)
[2018-04-09] MEDS: PANTOPRAZOLE 40 MG VIAL IV SCH ×2 (08:19→21:00)
[2018-04-09] MEDS: FUROSEMIDE 20 MG/2 ML VIAL IV SCH (08:22)
[2018-04-09] MEDS: Z GUARD REMEDY 2 OZ OINT TP SCH (08:27)
[2018-04-09] MEDS: HYDROGEL DRESSING 90 GM TUBE TP SCH (08:27)
--- NOTE | 2018-04-09 09:00 | NUR ---
UNABLE TO DO SEDATION VACATION- UPON DECREASING PROPOFOL PER PROTOCOL, PATIENT NOTED TO BE TACHYPNEIC WITH RR OF > 35, USE OF ACCESSORY MUSCLES WELL BUCKING THE VENT. UNABLE TO OBTAIN BASELINE NEURO ASSESSMENT. PT WITH + GAG, COUGH REFLEX, RESPONDS TO PAINFUL STIMULI. PROPOFOL TITRATED BACK TO 50 MCG. PATIENT NOTED TO BE SEDATED AT THE MOMENT
--- NOTE | 2018-04-09 09:40 | NUR ---
SOFT WRIST RESTRAINTS PER DR HANSEN PATIENT NONCOMPLIANT WITH SAFETY INSTRUCTIONS, ATTEMPTING TO PULL TUBES PATIENT REORIENTED TO ENVIRONMENT, INCREASED MONITORING IMPLEMENTED, COMFORT NEEDS MET, WILL CONTINUE TO MONITOR PATIENT
[2018-04-09] MEDS ORDERED: DEXTROSE 50%-WATER 50 ML DISP.SYRIN IVP ONE (11:00)
--- NOTE | 2018-04-09 11:34 | NUR ---
DR BENOIT NOTIFIED REGARDING BLOOD SUGARS, NOTIFIED THAT BLOOD SUGAR IMPROVED AFTER D50 ADMINISTRATION
--- NOTE | 2018-04-09 13:29 | NUR ---
PER DR THAKKAR, NO NEED FOR ABG TO BE DRAWN TODAY
--- NOTE | 2018-04-09 13:53 | NUR ---
DR BENOIT NOTIFIED THAT PATIENT IS ONLY SCHEDULED FOR A TRACHEOSTOMY TODAY DR BENOIT NOTFIIED THAT NO PLANS FOR A PEG INSERTION TODAY, VERIFIED WITH OR
--- NOTE | 2018-04-09 15:47 | NUR ---
DR THAKKAR NOTIFIED THAT FIO2 AT 60 CURRENTLY PER HIS ORDERS, PLACE ON PEEP OF 8 AND TITRATE FIO2 ACCORDINGLY VERBAL READBACK DONE
--- NOTE | 2018-04-09 15:48 | NUR ---
DR BENOIT NOTIFIED THAT TRACHEOSTOMY PROCEDURE CANCELLED TODAY. PLAN TO DO PROCEDURE TOMORROW AT 1300, VERIFIED WITH OR OK TO RESUME FEEDING AND MEDS, NPO POST MIDNIGHT PER DR BENOIT SON OF PATIENT, ALINE, NOTIFIED
[2018-04-09] MEDS: JEVITY 1.2 CAL 1,000 ML BOTTLE GT PRN (16:42)
--- NOTE | 2018-04-09 18:06 | NUR ---
CMP PER DR BENOIT, VERBAL READBACK DONE
--- NOTE | 2018-04-09 18:20 | NUR ---
RT END OF THE SHIFT REPORT, PT. 77 Y OLD FEMALE, INTUBATED WITH ETT # 7.5 @24 CM LIP LINE. WITH NOTED SETTINGS ON VENT, ALARMS SET AND FUNCTIONAL, B/S RALES/RHONCHI SUX'D FOR MINIMAL AMT SECRETIONS(BROWN/RED) AND EQUAL CHEST RISE NOTED, PT. DESATURATED T/O SHIFT FIO2 ADJUSTED AND KEPT AT 60% AND PEEP INCREASED TO +[address] THAKKAR ORDER NO OTHER DISTRESS NOTED. PT REMAIN STABLE WILL CONTINUE FOR MONITOR AND AMBU BAG REMAIN AT TH BEDSIDE. Addendum: 04/09/18 at 1823 by HILTON TOBIN RT Amended: Links added.
--- NOTE | 2018-04-09 19:08 | NUR ---
CAR GORDON, NOTIFIED OF TRACHEOSTOMY PROCEDURE TOMORROW NO PLAN FOR PEG INSERTION YET PER EVAN YOON
--- NOTE | 2018-04-09 20:00 | NUR ---
CLINICAL PSYCHOLOGIST PRIVATE PRACTICE - NOTES - PT RECEIVED IN BED, INTUBATED AND ON MECH VENT WITH SETTINGS WELL TOLERATED. HOB ELEVATED AND ON ASPIRATION PRECAUTIONS. NG TUBE IN PLACE AND NO RESIDUALS NOTED. ISOLATION PRECAUTIONS OBSERVED. IV LUIS ALBERTO PICC PATENT WITH DIPRIVAN DRIP INFUSING. WILL CONTINUE TO MONITOR.
[2018-04-09] MEDS: ATORVASTATIN 10 MG TABLET PO SCH (21:00)
--- NOTE | 2018-04-09 23:59 | NUR ---
pt noted to be tachypneic rr 40s and agitated, propofol drip increased to 50 mcg/kg/min and pt was given breathing tx, rr decreased to 20s-30s, pt appears more comfortable
[2018-04-10] VITALS (97 sets, daily range): BP systolic 76–141; BP diastolic 50–118
[2018-04-10] MEDS: PROPOFOL 100 ML IV PRN ×4 (02:00→17:54)
[2018-04-10] MEDS: VANCOMYCIN 0.75 GM in IV D5W 250 ML IV SCH (02:10)
[2018-04-10 04:21] LABS: BASOPHILS % (AUTO) 0.2 % (0.0-2.0); EOSINOPHILS % (AUTO) 9.4 % (0.0-6.0); HEMATOCRIT 25 % (33-45); HEMOGLOBIN 8.2 g/dL (11.5-14.8); LYMPHOCYTES # (AUTO) 0.7 /CMM (0.8-4.8); LYMPHOCYTES % (AUTO) 5.8 % (20.0-44.0); MEAN CORPUSCULAR HGB CONC 33 g/dl (31.0-36.0); MEAN CORPUSCULAR VOLUME 93 fL (82-100); MONOCYTES # (AUTO) 0.9 /CMM (0.1-1.30); MONOCYTES % (AUTO) 7.1 % (2.0-12.0); NEUTROPHILS # (AUTO) 9.4 /CMM (1.8-8.9); NEUTROPHILS % (AUTO) 77.5 % (43.0-81.0); PLATELET COUNT (AUTO) 332 /CMM (150-450); RDW COEFFICIENT OF VARIATION 15.9 (11.5-15.0); RED BLOOD CELL COUNT(AUTO) 2.68 MIL/uL (4.0-5.2); WHITE BLOOD COUNT (AUTO) 12.1 K/uL (4.3-11.0)
[2018-04-10 04:46] LABS: ALANINE AMINOTRANSFERASE 31 U/L (12-78); ALKALINE PHOSPHATASE 152 U/L (46-116); ASPARTATE AMINOTRANSFERASE 52 U/L (15-37); BILIRUBIN,TOTAL 0.8 mg/dL (0.2-1.0); CALCIUM, SERUM 7.8 mg/dL (8.5-10.1); CARBON DIOXIDE 31 mmol/L (21-32); CHLORIDE 92 mmol/L (98-107); CREATININE 0.7 mg/dL (0.6-1.3); GLUCOSE 115 mg/dL (74-106); POTASSIUM 4.7 mmol/L (3.5-5.1); SODIUM SERUM 126 mmol/L (136-145); TOTAL PROTEIN, SERUM 6.2 g/dL (6.4-8.2); UREA NITROGEN, BLOOD 22 mg/dL (7-18)
[2018-04-10 04:53] LABS: ALBUMIN 1.4 g/dL (3.4-5.0)
[2018-04-10 05:14] LABS: INR 1.1 (0.87-1.13)
--- NOTE | 2018-04-10 05:26 | NUR ---
PT RECEIVED INTUBATED ON VENT. TOLERATING SETTINGS. SX'D FOR MOD AMT OF THICK HUERTA SECRETIONS. VENT ALARMS SET AND AUDIBLE. AMBU BAG AT BEDSIDE. VENT PLUGGED INTO RED OUTLET. WILL CONTINUE TO MONITOR. Addendum: 04/10/18 at 0527 by ALVARO CARR RT Amended: Links added.
[2018-04-10] MEDS: MEROPENEM 500 MG in IV NS 0.9% 50 ML IV SCH (06:00)
[2018-04-10] MEDS: ACETYLCYSTEINE 10% SOLN 400 MG/4 ML VIAL NEB SCH ×3 (07:44→23:15)
--- NOTE | 2018-04-10 07:54 | NUR ---
RT PT RECEIVED ORALLY INTUBATED WITH A 7.5 ETT SECURED AT 24CM AT THE LIP LINE. PT APPEARS TO BE COMFORTABLE AND STABLE ON CURRENT VENT SETTINGS. VENT ALARMS ARE SET AND AUDIBLE WITH BVM BY BEDSIDE. LOAD CHECKER CUFF PRESSURE NOTED. VENT IS PLUGGED INTO RED OUTLET. PT SX'D MODERATE THICK HUERTA SECRETIONS. NO RESPIRATORY DISTRESS NOTED AT THIS TIME, WILL CONTINUE TO MONITOR. Addendum: 04/10/18 at 0910 by STEPH KAPOOR RT Amended: Links added.
[2018-04-10] MEDS: Z GUARD REMEDY 2 OZ OINT TP SCH (08:17)
[2018-04-10] MEDS: HYDROGEL DRESSING 90 GM TUBE TP SCH (08:17)
[2018-04-10] MEDS: PANTOPRAZOLE 40 MG VIAL IV SCH ×2 (08:20→21:00)
--- NOTE | 2018-04-10 08:30 | NUR ---
DR BENOIT NOTIFIED OF LAB VALUES RESULTED TODAY
[2018-04-10] MEDS: SOTALOL HCL 80 MG TABLET PO SCH ×2 (08:38→17:02)
[2018-04-10] MEDS: SPIRONOLACTONE 25 MG TABLET GT SCH (08:38)
[2018-04-10] MEDS: BENAZEPRIL HCL 10 MG TABLET NG SCH (08:38)
[2018-04-10] MEDS: DOCUSATE SODIUM LIQ 100 MG/10 ML UDC NG SCH ×2 (08:38→16:59)
[2018-04-10] MEDS: CARVEDILOL 3.125 MG TABLET PO SCH ×2 (08:39→21:00)
[2018-04-10] MEDS: APIXABAN 2.5 MG TABLET PO SCH ×2 (08:40→17:00)
[2018-04-10] MEDS: LACTOBACILLUS RHAMNOSUS GG 1 EACH CAP.SPRINK PO SCH ×2 (08:40→17:02)
--- NOTE | 2018-04-10 08:50 | NUR ---
PER DR BENOIT, SWITCH VANCOMYCIN MIXED WITH D5W TO VANCOMYCIN MIXED WITH NORMAL SALINE DUE TO SODIUM LEVELS
[2018-04-10] MEDS: FUROSEMIDE 20 MG/2 ML VIAL IV SCH (09:01)
[2018-04-10] MEDS ORDERED: FENTANYL PF 100MCG/2ML AMPUL ONE (09:18)
[2018-04-10] MEDS ORDERED: DEXTROSE 50%-WATER 50 ML DISP.SYRIN IVP ONE (09:30)
--- NOTE | 2018-04-10 09:30 | NUR ---
OR STAFF NOTIFIED OF BLOOD SUGAR OF 104, STAFF AT BEDSIDE FOR PEG INSERTION
--- NOTE | 2018-04-10 09:37 | NUR ---
DR BENOIT NOTIFIED OF BLOOD SUGAR LEVELS PER HIS ORDERS, D50 1/2 AMPULE PRN FOR HYPOGLYCEMIA
--- NOTE | 2018-04-10 09:44 | NUR ---
PER DR MUIR, CORINNA TO GIVE WATER AND MEDICINE THROUGH [facility] IN 4 HOURS, 1400 START FEEDING TOMORROW AM 04/11/18 VERBAL READBACK DONE
--- NOTE | 2018-04-10 10:20 | NUR ---
[facility] REMOVED BY DR MUIR
--- NOTE | 2018-04-10 11:44 | NUR ---
PHARMACY NOTIFIED THAT PER DR DAILY WEINSTEIN TO SWITCH VANCOMYCIN MIXED WITH D5W TO VANCOMYCIN MIXED WITH NORMAL SALINE
[2018-04-10] MEDS: DEXTROSE 50%-WATER 50 ML DISP.SYRIN IVP PRN (12:45)
[2018-04-10] MEDS ORDERED: VANCOMYCIN 0.75 GM in IV NS 0.9% 250 ML IV SCH (14:00)
--- NOTE | 2018-04-10 14:53 | NUR ---
PER DR BENOIT, D5NS @ 40ML/HOUR VERBAL READBACK DONE
[2018-04-10] MEDS: IV D5/ 0.9% NACL 1,000 ML IV PRN (16:59)
--- NOTE | 2018-04-10 17:00 | NUR ---
1700 MEDS GIVEN THROUGH [facility] PER MD WOOD, ORDERS
[2018-04-10] MEDS: MEROPENEM 1 G in IV NS 0.9% 100 ML IV SCH (17:54)
--- NOTE | 2018-04-10 19:15 | NUR ---
DR BENOIT AND PATIENT'S SON, ALINE, NOTIFIED THAT TRACHEOSTOMY POSTPONED TO TOMORROW PER DR NIETO SPOKE TO MEDHAT FROM DR NIETO'S OFFICE
--- NOTE | 2018-04-10 19:15 | NUR ---
ENDORSED TO SAUSAGE GRINDER RN FOR MADDISON
--- NOTE | 2018-04-10 19:30 | NUR ---
INBOUND CUSTOMER SERVICE AGENT NOTES RECEIVED PT ON BED. OBTUNDED, [facility] SETTING SATURATING WELL. NO RESPIRATORY DISTRESS NOTED. ON BHANDARI CATH DRAINING WELL WITH YELLOW COLORED URINE. IV ACCESS ON LUIS ALBERTO PICC LINE WITH PROPOFOL RUNNING AT 50MCG/KG/MIN. WILL CONTINUE TO MONITOR PT CLOSELY.
--- NOTE | 2018-04-10 20:18 | NUR ---
PT RECEIVED INTUBATED ON VENT. TOLERATING SETTINGS. SX'D FOR MOD AMT OF THICK HUERTA SECRETIONS. VENT ALARMS SET AND AUDIBLE. AMBU BAG AT BEDSIDE. VENT PLUGGED INTO RED OUTLET. WILL CONTINUE TO MONITOR. Addendum: 04/10/18 at 2018 by KOMAL BROWN RT Amended: Links added.
--- NOTE | 2018-04-10 20:22 | NUR ---
PARBOILER NOTES PER PHARMACY OKAY TO GIVE VANCOMYCIN SINCE THEY RETIMED IT FOR Q18HRS. WILL CONTINUE TO MONITOR PT CLOSELY.
[2018-04-10] MEDS: ATORVASTATIN 10 MG TABLET PO SCH (21:00)
[2018-04-10] MEDS: VANCOMYCIN 0.75 GM in IV NS 0.9% 250 ML IV SCH (21:01)
--- NOTE | 2018-04-10 22:40 | NUR ---
NEURODIAGNOSTIC TECH NOTES PT NPO SINCE 04/10/18. WILL CONTINUE TO MONITOR
[2018-04-11] VITALS (64 sets, daily range): BP systolic 92–152; BP diastolic 51–99
[2018-04-11] MEDS: PROPOFOL 100 ML IV PRN ×4 (00:17→17:26)
--- NOTE | 2018-04-11 02:15 | NUR ---
COMPUTER CONSOLE OPERATOR NOTES Received patient with tracheostomy to the ventilator,on AC mode.Off sedation at this time,responds to pain,+ cough and gag,grimaces to pain,withdraws extremities to pain but very weak.G tube feeding resumed (S/P Tracheostomy) start at 20 ml /hr(goal 5o ml).[id number] care done,needs attended.Family at bedside 1999 Patient tachypneic with deep ,labored breathing,resumed/restarted Propofol drip. 2199 Still very tachypneic with RR -40's,titrated Propofol up .
[2018-04-11 04:11] LABS: BASOPHILS # (AUTO) 0.1 /CMM (0.0-0.2); BASOPHILS % (AUTO) 0.5 % (0.0-2.0); HEMATOCRIT 25 % (33-45); HEMOGLOBIN 8.1 g/dL (11.5-14.8); LYMPHOCYTES # (AUTO) 0.7 /CMM (0.8-4.8); LYMPHOCYTES % (AUTO) 5.9 % (20.0-44.0); MEAN CORPUSCULAR HGB CONC 32 g/dl (31.0-36.0); MEAN CORPUSCULAR VOLUME 95 fL (82-100); MONOCYTES # (AUTO) 0.8 /CMM (0.1-1.30); MONOCYTES % (AUTO) 6.2 % (2.0-12.0); NEUTROPHILS # (AUTO) 10.1 /CMM (1.8-8.9); NEUTROPHILS % (AUTO) 80.4 % (43.0-81.0); PLATELET COUNT (AUTO) 317 /CMM (150-450); RED BLOOD CELL COUNT(AUTO) 2.62 MIL/uL (4.0-5.2); WHITE BLOOD COUNT (AUTO) 12.5 K/uL (4.3-11.0)
[2018-04-11 04:25] LABS: CALCIUM, SERUM 7.9 mg/dL (8.5-10.1); CARBON DIOXIDE 31 mmol/L (21-32); CHLORIDE 96 mmol/L (98-107); CREATININE 0.7 mg/dL (0.6-1.3); GLUCOSE 80 mg/dL (74-106); POTASSIUM 4.2 mmol/L (3.5-5.1); SODIUM SERUM 131 mmol/L (136-145); UREA NITROGEN, BLOOD 20 mg/dL (7-18)
[2018-04-11] MEDS: MEROPENEM 1 G in IV NS 0.9% 100 ML IV SCH ×2 (05:24→17:43)
--- NOTE | 2018-04-11 06:46 | NUR ---
JEWEL GAUGER NOTES NO ACUTE CHANGES NOTED DURING THE SHIFT. PT KEPT NPO. BP WNL. NO RESPIRATORY DISTRESS. WILL ENDORSE TO THE AM NURSE FOR CONTINUITY OF CARE.
[2018-04-11] MEDS: ACETYLCYSTEINE 10% SOLN 400 MG/4 ML VIAL NEB SCH ×2 (07:25→15:19)
[2018-04-11] MEDS: APIXABAN 2.5 MG TABLET PO SCH ×2 (09:00→17:39)
--- NOTE | 2018-04-11 09:30 | NUR ---
Nilsriphoebe titrated off per protocol. Sedation vacation initiated at 0815. Dr Gomez at bedside to see pt. RR in 40th-50th. ok to put pt. back on sedation.
[2018-04-11] MEDS: DOCUSATE SODIUM LIQ 100 MG/10 ML UDC NG SCH ×2 (09:33→17:39)
[2018-04-11] MEDS: PANTOPRAZOLE 40 MG VIAL IV SCH ×2 (09:33→21:05)
[2018-04-11] MEDS: SOTALOL HCL 80 MG TABLET PO SCH ×2 (09:34→17:39)
[2018-04-11] MEDS: BENAZEPRIL HCL 10 MG TABLET NG SCH (09:34)
[2018-04-11] MEDS: LACTOBACILLUS RHAMNOSUS GG 1 EACH CAP.SPRINK PO SCH ×2 (09:35→17:39)
[2018-04-11] MEDS: CARVEDILOL 3.125 MG TABLET PO SCH ×2 (09:35→21:05)
[2018-04-11] MEDS: FUROSEMIDE 20 MG/2 ML VIAL IV SCH (09:35)
[2018-04-11] MEDS: Z GUARD REMEDY 2 OZ OINT TP SCH (09:37)
[2018-04-11] MEDS: SPIRONOLACTONE 25 MG TABLET GT SCH (09:38)
[2018-04-11] MEDS: HYDROGEL DRESSING 90 GM TUBE TP SCH (09:38)
[2018-04-11 14:20] LABS: INR 1.15 (0.87-1.13)
[2018-04-11] MEDS: VANCOMYCIN 0.75 GM in IV NS 0.9% 250 ML IV SCH (14:58)
[2018-04-11] MEDS ORDERED: LIDOCAINE 1%-EPI 1:100,000 20 ML VIAL ONE (15:27)
[2018-04-11] MEDS ORDERED: ANESTHESIA TRAY IN PYXIS 1 EA TRAY MC ONE (15:27)
[2018-04-11] MEDS ORDERED: ROCURONIUM BROMIDE 50 MG/5 ML ONE (15:50)
--- NOTE | 2018-04-11 16:20 | NUR ---
RT PT BROUGHT BACK FROM OR WITH A SHILEY 8 TRACH. EQUAL BILATERAL BREATHE SOUNDS AND CHEST RISE NOTED. PT PLACED BACK ON VENT. SX'D SMALL THIN WHITE/CLEAR SECRETIONS. NO RESPIRATORY DISTRESS NOTED AT THIS TIME, WILL CONTINUE TO MONITOR.
--- NOTE | 2018-04-11 16:20 | NUR ---
pt back from or. tolerated procedure well. vss.
[2018-04-11] MEDS: IV D5/ 0.9% NACL 1,000 ML IV PRN (17:30)
[2018-04-11] MEDS: JEVITY 1.2 CAL 1,000 ML BOTTLE GT PRN (18:26)
[2018-04-11] MEDS: ATORVASTATIN 10 MG TABLET PO SCH (21:05)
[2018-04-11] MEDS ORDERED: MICONAZOLE NITRATE VAG CREAM 45 GM TUBE VG SCH (22:00)
[2018-04-12] VITALS (84 sets, daily range): BP systolic 61–146; BP diastolic 27–94
--- NOTE | 2018-04-12 | NUR ---
Still tachypneic ,but breathing less labored ,Propofol at 30 mcg/kg/min.Still arousable,+ cough and gag,grimaces to pain.Noted periods of desaturation in the low 90's .wILL CLOSELY MONITOR.
[2018-04-12 04:24] LABS: BASOPHILS % (AUTO) 0.4 % (0.0-2.0); EOSINOPHILS % (AUTO) 4.4 % (0.0-6.0); HEMATOCRIT 26 % (33-45); HEMOGLOBIN 8.6 g/dL (11.5-14.8); LYMPHOCYTES # (AUTO) 0.7 /CMM (0.8-4.8); LYMPHOCYTES % (AUTO) 6.2 % (20.0-44.0); MEAN CORPUSCULAR HGB CONC 34 g/dl (31.0-36.0); MEAN CORPUSCULAR VOLUME 93 fL (82-100); MONOCYTES # (AUTO) 0.9 /CMM (0.1-1.30); MONOCYTES % (AUTO) 7.9 % (2.0-12.0); NEUTROPHILS # (AUTO) 9.3 /CMM (1.8-8.9); NEUTROPHILS % (AUTO) 81.1 % (43.0-81.0); PLATELET COUNT (AUTO) 333 /CMM (150-450); RDW COEFFICIENT OF VARIATION 16.2 (11.5-15.0); RED BLOOD CELL COUNT(AUTO) 2.74 MIL/uL (4.0-5.2); WHITE BLOOD COUNT (AUTO) 11.4 K/uL (4.3-11.0)
[2018-04-12 04:39] LABS: CALCIUM, SERUM 7.7 mg/dL (8.5-10.1); CARBON DIOXIDE 31 mmol/L (21-32); CHLORIDE 97 mmol/L (98-107); CREATININE 0.7 mg/dL (0.6-1.3); GLUCOSE 136 mg/dL (74-106); POTASSIUM 4.3 mmol/L (3.5-5.1); SODIUM SERUM 132 mmol/L (136-145); UREA NITROGEN, BLOOD 20 mg/dL (7-18)
[2018-04-12] MEDS: MEROPENEM 1 G in IV NS 0.9% 100 ML IV SCH ×2 (05:28→17:18)
[2018-04-12] MEDS: PROPOFOL 100 ML IV PRN ×4 (05:29→22:03)
--- NOTE | 2018-04-12 06:00 | NUR ---
Remains tachypneic,Feeding tolerated ,Trache site (-) bleeding.continue Comfort care.
[2018-04-12] MEDS: ACETYLCYSTEINE 10% SOLN 400 MG/4 ML VIAL NEB SCH ×3 (07:35→14:56)
[2018-04-12] MEDS: DOCUSATE SODIUM LIQ 100 MG/10 ML UDC NG SCH ×2 (09:00→16:00)
[2018-04-12] MEDS: BENAZEPRIL HCL 10 MG TABLET NG SCH (09:00)
[2018-04-12] MEDS: PANTOPRAZOLE 40 MG VIAL IV SCH ×2 (09:03→20:57)
[2018-04-12] MEDS: FUROSEMIDE 20 MG/2 ML VIAL IV SCH (09:03)
[2018-04-12] MEDS: LACTOBACILLUS RHAMNOSUS GG 1 EACH CAP.SPRINK PO SCH ×2 (09:03→16:00)
[2018-04-12] MEDS: SOTALOL HCL 80 MG TABLET PO SCH ×2 (09:03→16:00)
[2018-04-12] MEDS: SPIRONOLACTONE 25 MG TABLET GT SCH (09:04)
[2018-04-12] MEDS: CARVEDILOL 3.125 MG TABLET PO SCH ×2 (09:04→21:00)
[2018-04-12] MEDS: APIXABAN 2.5 MG TABLET PO SCH ×2 (09:05→16:00)
[2018-04-12] MEDS: HYDROGEL DRESSING 90 GM TUBE TP SCH (09:05)
[2018-04-12] MEDS: Z GUARD REMEDY 2 OZ OINT TP SCH (09:06)
[2018-04-12] MEDS: VANCOMYCIN 0.75 GM in IV NS 0.9% 250 ML IV SCH (09:07)
--- NOTE | 2018-04-12 09:17 | NUR ---
hhn deferred rt busy with pt care. zero distress noted.
[2018-04-12] MEDS: IV NS 0.9% 250 ML IV PRN (09:22)
--- NOTE | 2018-04-12 09:24 | NUR ---
PER DR THAKKAR PLEASE ORDER ATIVAN IVP Q2H 1MG PRN TO ASSIST WITH RR CONTROL. PER HX NO ALLERGIC REACTION NOTED BUT PATIENT WAS OVERSEDATED THUS ATIVAN ADDED TO ALLERGY LIST. OK TO GIVE PER DR THAKKAR.
[2018-04-12] MEDS ORDERED: LORAZEPAM INJ 2 MG/ML VIAL IV PRN (09:30)
--- NOTE | 2018-04-12 10:05 | NUR ---
PATIENT BP LOWERED. CALLED [facility] TO HAVE LEVO ORDERED. PATIENT PLACED LEFT LATERAL HOB LOWERED LEGS ELEVATED.
[2018-04-12] MEDS: NOREPINEPHRINE 16 MG in IV D5W 500 ML IV PRN (10:17)
--- NOTE | 2018-04-12 11:00 | NUR ---
AMOL AQUACULTURE FARM MANAGER AT BEDSIDE FOR F/U SACRAL WOUND. UNSTAGEABLE. POSSIBLE DEBRIDEMENT ONCE OUT OF ICU
[2018-04-12 12:13] LABS: ABG BASE EXCESS 5.1 mmol/L; ABG PCO2 41.6 mmHg (35.0-45.0); ABG PH 7.466 (7.350-7.450); ABG PO2 75.4 mmHg (75.0-100.0); AaDO2 234.3 mmHg; COHb 0.8 % (0.5-1.5); MetHb 0.2 % (0.0-1.5); O2Hb 91.7 % (94.0-97.0); PEEP,BG 8 cm H2O; SITE, ABG Right Radial; VT, ABG 400 mL
--- NOTE | 2018-04-12 12:30 | NUR ---
DR BENOIT AT BEDSIDE PER MD YONY HERRERA AND ONLY START ONCE OTHER AX COMPLETED.
[2018-04-12] MEDS: JEVITY 1.2 CAL 1,000 ML BOTTLE GT PRN (18:01)
--- NOTE | 2018-04-12 18:43 | NUR ---
ALL DUE MEDS GIVEN AND ALL NEEDS ASSESSED. TOLERATING VENT SETTINGS PER MD ORDER. BHANDARI IN PLACE DRAINING TO GRAVITY. IV SITE C/D/I/P BLOOD RETURN PRESENT. PATIENT ON LEVOPHED RUNNING PER SPREADSHEET AND TITRATING PER PROTOCOL. IVF PER MD ORDER. TOLERATING TUBE FEEDINGS AT GOAL RATE MINIMAL RESIDUAL NOTED. ASPIRATION, SKIN, AND SAFETY PRECAUTIONS IN PLACE AND MONITORED THROUGHOUT THE DAY. PATIENT CARE WILL BE ENDORSED TO RN FOR MADDISON
[2018-04-12] MEDS: IV D5/ 0.9% NACL 1,000 ML IV PRN (19:08)
--- NOTE | 2018-04-12 19:42 | NUR ---
PT RECEIVED ON VENT. TOLERATING SETTINGS. SX'D FOR MOD AMT OF THICK HUERTA SECRETIONS. VENT ALARMS SET AND AUDIBLE. AMBU BAG AT BEDSIDE. VENT PLUGGED INTO RED OUTLET. WILL CONTINUE TO MONITOR. Addendum: 04/12/18 at 1943 by MIKE KOROMA RT Amended: Links added.
[2018-04-12] MEDS: ATORVASTATIN 10 MG TABLET PO SCH (21:29)
[2018-04-13] VITALS (106 sets, daily range): BP systolic 73–146; BP diastolic 46–95
[2018-04-13] MEDS: ACETYLCYSTEINE 10% SOLN 400 MG/4 ML VIAL NEB SCH ×4 (00:02→23:38)
[2018-04-13] MEDS: PROPOFOL 100 ML IV PRN ×4 (02:44→14:48)
[2018-04-13] MEDS: VANCOMYCIN 0.75 GM in IV NS 0.9% 250 ML IV SCH ×2 (03:15→21:02)
[2018-04-13 04:34] LABS: BASOPHILS % (AUTO) 0.1 % (0.0-2.0); EOSINOPHILS % (AUTO) 8.4 % (0.0-6.0); HEMATOCRIT 25 % (33-45); HEMOGLOBIN 7.9 g/dL (11.5-14.8); LYMPHOCYTES # (AUTO) 0.7 /CMM (0.8-4.8); LYMPHOCYTES % (AUTO) 5.9 % (20.0-44.0); MEAN CORPUSCULAR HGB CONC 31 g/dl (31.0-36.0); MEAN CORPUSCULAR VOLUME 94 fL (82-100); MONOCYTES % (AUTO) 8.6 % (2.0-12.0); PLATELET COUNT (AUTO) 309 /CMM (150-450); RDW COEFFICIENT OF VARIATION 15.9 (11.5-15.0); RED BLOOD CELL COUNT(AUTO) 2.71 MIL/uL (4.0-5.2); WHITE BLOOD COUNT (AUTO) 11.7 K/uL (4.3-11.0)
[2018-04-13 05:12] LABS: CALCIUM, SERUM 7.7 mg/dL (8.5-10.1); CARBON DIOXIDE 30 mmol/L (21-32); CHLORIDE 102 mmol/L (98-107); CREATININE 0.7 mg/dL (0.6-1.3); GLUCOSE 156 mg/dL (74-106); POTASSIUM 3.8 mmol/L (3.5-5.1); SODIUM SERUM 136 mmol/L (136-145); UREA NITROGEN, BLOOD 21 mg/dL (7-18)
[2018-04-13] MEDS: MEROPENEM 1 G in IV NS 0.9% 100 ML IV SCH ×2 (06:19→17:54)
--- NOTE | 2018-04-13 07:00 | NUR ---
RECEIVED PATIENT. ON DIPRIVAN FOR SEDATION AND TACHYPNEA WILL TITRATE PER PROTOCOL. PATIENT CURRENTLY ON LEVO 2MCG/MIN AND WILL CONTINUE TO TITRATE PER PROTOCOL. PATIENT BHANDARI CATH IN PLACE DRAINING TO GRAVITY. PICC LINE C/D/I/P, GOOD BLOOD RETURN NOTED. TOLERATING VENT SETTINGS PER ORDER THICK SECRETIONS NOTED PINK TINGED. TUBE FEEDING PER ORDER MINIMAL RESIDUAL AND RUNNING AT GOAL RATE. NSR WITH OCCASIONAL PAC'S AND PVC'S. SAFETY, SKIN, AND ASPIRATION PRECAUTIONS IN PLACE AND WILL MONITOR.
--- NOTE | 2018-04-13 07:00 | NUR ---
COSTING ANALYST: END OF SHIFT REPORT. PT. IS STILL SEDATED ON DIPRIVAN GTT. AT 60 MCG/KG/MIN. PT. AWAKENS WITHIN 5-10 MINS. W/SEDATION VACATION. LEVOPHED GTT. WAS AT 4 MCG/MIN. AT SOS. NOW TITRATED DOWN TO 2 MCG/MIN. PT.IS +1 EDEMA TO EXT. PT'S TONGUE WAS EDEMATOUS DAY BEFORE, BUT WITHIN 24 HRS, TONGUE HAS TONED DOWN CONSIDERABLY. ALL PULSES PALPABLE X 4 EXT. RUE PICC LINE HAS DIPRIVAN INFUSING, & D5NS AT 40CC/HR, NS AT TKO & LEVOPHED GTT. ALL PORTS X 3 ARE PATENT TO FLUSH. SACRAL WOUND & EXCORIATED DEEDEE AREA NOTED DURING 2 AM BEDBATH. ORAL,TRACH,VENT,PEG,DEEDEE & SKIN/WOUND CARE RENDERED. S/P 2 DAY OLD TRACH. VENT SETTINGS @ AC-16,TV-400, 50% & 10 OF PEEP. HUERTA SX'S NOTED. PT. HAS BHANDARI CATH TO GRAVITY W/ 375 CC UOP & SM. BM. FOR 12HR. SHIFT. HEART MONITOR SHOW SINUS ARRHYTHMIA W/PAC & PVC'S. CONT.POC.
[2018-04-13] MEDS: LACTOBACILLUS RHAMNOSUS GG 1 EACH CAP.SPRINK PO SCH ×2 (08:35→16:08)
[2018-04-13] MEDS: SPIRONOLACTONE 25 MG TABLET GT SCH (08:35)
[2018-04-13] MEDS: HYDROGEL DRESSING 90 GM TUBE TP SCH (08:35)
[2018-04-13] MEDS: FUROSEMIDE 20 MG/2 ML VIAL IV SCH ×2 (08:35→20:58)
[2018-04-13] MEDS: DOCUSATE SODIUM LIQ 100 MG/10 ML UDC NG SCH ×2 (08:35→16:08)
[2018-04-13] MEDS: PANTOPRAZOLE 40 MG VIAL IV SCH ×2 (08:35→20:47)
[2018-04-13] MEDS: BENAZEPRIL HCL 10 MG TABLET NG SCH (09:00)
[2018-04-13] MEDS: CARVEDILOL 3.125 MG TABLET PO SCH ×2 (09:00→20:48)
--- NOTE | 2018-04-13 09:30 | NUR ---
patient bp medications held s/t low bp on levo.
--- NOTE | 2018-04-13 09:40 | NUR ---
NOTIFIED DR THAKKAR PATIENT UNABLE TO TOLERATE SEDATION VACATION. RR CONSTANT IN MID TO HIGH 40'S. ALSO PATIENT WAS NOT WAKING UP NOR OPENING EYES. SHE IS WITHDRAWING SLIGHTLY FROM PAINFUL STIMULI. PER PLEASE ORDER HEAD CT WO. Addendum: 04/13/18 at 1009 by BRITNI HARRY RN AWARE PATIENT UNAROUSABLE. PUPILS REACTIVE. COUGH AND GAG REFLEX PRESENT Addendum: 04/13/18 at 1106 by BRITNI HARRY RN PER MD JAVY BEYER
[2018-04-13] MEDS: Z GUARD REMEDY 2 OZ OINT TP SCH (09:45)
[2018-04-13] MEDS: SOTALOL HCL 80 MG TABLET PO SCH (09:59)
--- NOTE | 2018-04-13 10:00 | NUR ---
MESSAGE TO DR BENOIT TO NOTIFY PATIENT DID NOT TOLERATE DIPRIVAN VACATION. RR 40'S, NOR WAKING UP. AND PATIENT RHYTHM AFLUTTER 90-110. RESUMING DIPRIVAN PER PROTOCOL.
[2018-04-13] MEDS: APIXABAN 2.5 MG TABLET PO SCH ×2 (10:55→17:54)
[2018-04-13] MEDS: NOREPINEPHRINE 16 MG in IV D5W 500 ML IV PRN (11:26)
--- NOTE | 2018-04-13 11:30 | NUR ---
ANOTHER MESSAGE TO DR BENOIT OFFICE FOR UPDATE ON PATIENT CONDITION.
--- NOTE | 2018-04-13 11:45 | NUR ---
DR THAKKAR AT BEDSIDE. MD AWARE PATIENT WAS NOT ABLE TO TOLERATE DIPRIVAN GTT BEING OFF S/T TACHYPNEA SO UNABLE TO DETERMINE EXTENT OF PATIENT MENTAL STATUS. HEAD CT NEGATIVE. BP STABLE AT THIS TIME LOW DOSE LEVO. MD AWARE PATIENT CONTINUES IN AFLUTTER 90'S. NO NEW ORDERS AT THIS TIME. PER MD CONTINUE WITH DIPRIVAN GTT FOR RR CONTROL. AT THIS TIME PATIENT 75MCG/KG/MIN AND RR 36. MD DOES NOT WANT RR IN 40'S
--- NOTE | 2018-04-13 12:25 | NUR ---
NO NEW ORDERS PER DR BENOIT
--- NOTE | 2018-04-13 14:45 | NUR ---
PER DR THAKKAR PLEASE START PATIENT ON MORPHINE GTT AND START AT 5MG.HOUR TITRATE IF NEEDED TO MAX OF 15MG.HOUR TO KEEP RESPIRATORY RATE UNDER 30. PLEASE TITRATE DIPRIVAN GTT OFF ONCE RR CONTROLLED
--- NOTE | 2018-04-13 17:00 | NUR ---
DR BENOIT AT BEDSIDE. UPDATED ON PATIENT CONDITION. AWARE PATIENT CONTINUES IN AFLUTTER MOSTLY CONTROLLED RHYTHM AT THIS TIME. PER MD BHAKTA SOTALOL. DC D5NS AT 40ML/HOUR. INCREASE CURRENT LASIX ORDER TO Q12H. OK TO ORDER PER DIETARY VITAMIN C GT DAILY 500MG AND PROSTAT 30ML GTUBE TID. NO ORDER FOR MULTIVITAMIN. MD AWARE PATIENT NOT RESPONSIVE DURING DIPRIVAN VACATION AND CT NEGATIVE. MD AGREEABLE TO MORPHINE GTT FOR RR CONTROL. ONCE CURRENT MORPHINE BAG EXPIRES PLEASE CHANGE TO DILAUDID GTT FOR RR CONTROL FOLLOWS: START GTT AT 0.5MG CONTINUOUS IV AND TITRATE 0.1MG Q1H TO A MAX DOSAGE OF 1.5MG IF NEEDED FOR RR CONTROL TO KEEP RR 30 OR BELOW.
[2018-04-13] MEDS: JEVITY 1.2 CAL 1,000 ML BOTTLE GT PRN (17:52)
[2018-04-13] MEDS: Z GUARD REMEDY 2 OZ OINT TP PRN (17:53)
[2018-04-13] MEDS: IV NS 0.9% 250 ML IV PRN (17:53)
[2018-04-13] MEDS: PROSOURCE / PROSTAT (PYXIS) 30 ML UDC GT SCH (17:54)
--- NOTE | 2018-04-13 18:00 | NUR ---
70ML RESIDUAL NOTED. FEEDING LOWERED TO 40ML.HOUR WILL MONITOR.
--- NOTE | 2018-04-13 18:25 | NUR ---
RT NOTE PT REMAINS IN STABLE CONDITION. PT MECHANICALLY VENTILATED VIA SHILEY 8 CUFFED TRACHEOSTOMY TUBE. TRACH MIDLINE AND SECURE. CUFF INFLATED VIA CUSTOMER SERVICER. SETTINGS PRESCRIBED. ALARMS SET PER PROTOCOL AND AUDIBLE. NO DISTRESS NOTED. Addendum: 04/13/18 at 1827 by RIGO CLAROS RT Amended: Links added.
--- NOTE | 2018-04-13 18:51 | NUR ---
AT THIS TIME PATIENT RR STABLE AT 27-29 ON 6MG/HR MORPHINE AND DIPRIVAN GTT STOPPED. PATIENT ON 2MCG/MIN LEVO AND BP STABLE AT THIS TIME. TITRATING GTTS PER ORDER. BHANDARI INTACT DRAINING TO GRAVITY WITH UO INCREASING TODAY TO 700ML. PICC LINE C/D/I/P AND BLOOD RETURN PRESENT. PATIENT SATURATING 96% AT 60% FI02 AT THIS TIME AND TITRATING FI02 PER MD ORDER. TUBE FEEDING LOWERED TO 40ML/HOUR 70 ML RESIDUAL NOTED. SAFETY, ASPIRATION, AND SKIN PRECAUTIONS IN PLACE AND MONITORED THROUGHOUT DAY. CARE WILL BE ENDORSED TO RN FOR MADDISON.
--- NOTE | 2018-04-13 19:48 | NUR ---
PT RECEIVED ON VENT. TOLERATING SETTINGS. SX'D FOR MOD AMT OF THICK HUERTA SECRETIONS. VENT ALARMS SET AND AUDIBLE. AMBU BAG AT BEDSIDE. VENT PLUGGED INTO RED OUTLET. WILL CONTINUE TO MONITOR. Addendum: 04/13/18 at 1948 by MIKE KOROMA RT Amended: Links added.
--- NOTE | 2018-04-13 20:00 | NUR ---
Received patient sedated on Morphine drip at 7mg increased to 8 mg RR 30-33 and will titrate accordingly to keep RR<30 MAX 15 mg.With ETT to vent patient desaturating to 88%-89% RT,Jarrett notified and increased FIO2 to 75%.Suctioned secretions PRN.No acute respiratory distress noted.Afib 115-127 non sustaining Levophed gtt infusing for BP support and will titrate accordingly infusing via LUIS ALBERTO PICC line.FC to gravity drainage with minimal output. Turned and repositioned.
--- NOTE | 2018-04-13 21:00 | NUR ---
Patient per monitor shows Afib with RVR HR 130'S-145.Paged and LEVELING MACHINE OPERATOR,Saima Brennan responded. Made aware of patient status.She said call patient cardiology.Paged .
--- NOTE | 2018-04-13 21:09 | NUR ---
responded and made aware of patient tele reading Afib with RVR. said he is not on the case.And refused to see patient not until call him himself.
[2018-04-13] MEDS: ATORVASTATIN 10 MG TABLET PO SCH (21:12)
--- NOTE | 2018-04-13 21:26 | NUR ---
GAME MANAGER,DONTAE SAHNI made aware that is not on the case and refused see patient until will call him himself.Per GAME MANAGER she will call .
--- NOTE | 2018-04-13 22:35 | NUR ---
called with orders and carried out.
[2018-04-13] MEDS ORDERED: DIGOXIN INJ 0.5 MG/2 ML AMPUL ONE (22:39)
[2018-04-13] MEDS: DIGOXIN INJ 0.5 MG/2 ML AMPUL IV SCH (22:48)
[2018-04-13] MEDS: DILTIAZEM HCL 25 MG IV IV PRN (22:58)
[2018-04-13] MEDS ORDERED: DILTIAZEM HCL 25 MG IV IV ONE (23:00)
[2018-04-13 23:54] LABS: ABG BASE EXCESS 0.2 mmol/L; ABG OXYGEN SATURATION 90.6 % (92.0-98.5); ABG PCO2 67.9 mmHg (35.0-45.0); ABG PH 7.242 (7.350-7.450); ABG PO2 73.6 mmHg (75.0-100.0); COHb 0.3 % (0.5-1.5); O2Hb 89.4 % (94.0-97.0); SITE, ABG Right Radial
[2018-04-14] VITALS (71 sets, daily range): BP systolic 50–141; BP diastolic 33–84
--- NOTE | 2018-04-14 00:08 | NUR ---
Patient desaturating to 60's-70's with shallow breathing.Suctioned moderate amount of secretions. Morphine gtt infusing at 2 ml/hr.ABG's done by RT,Jarrett and pH 7.242,pCO2 67.9,pO2 73.6,HCO3 28.6 relayed to .With orders to increase Tidal volume to 450.RT,Jarrett notified of changes.
[2018-04-14] MEDS ORDERED: DIGOXIN INJ 0.5 MG/2 ML AMPUL ONE (03:46)
--- NOTE | 2018-04-14 04:00 | NUR ---
Patient resting.VS stable.AM care done.Sacral dressing done.Turned and repositioned.
[2018-04-14] MEDS: DIGOXIN INJ 0.5 MG/2 ML AMPUL IV SCH (04:01)
[2018-04-14 04:58] LABS: CALCIUM, SERUM 8.1 mg/dL (8.5-10.1); CHLORIDE 101 mmol/L (98-107); CREATININE 0.9 mg/dL (0.6-1.3); GLUCOSE 86 mg/dL (74-106); POTASSIUM 5.4 mmol/L (3.5-5.1); SODIUM SERUM 135 mmol/L (136-145); UREA NITROGEN, BLOOD 23 mg/dL (7-18)
[2018-04-14 05:08] LABS: CARBON DIOXIDE 30 mmol/L (21-32)
[2018-04-14 05:25] LABS: BASOPHILS % (AUTO) 0.2 % (0.0-2.0); EOSINOPHILS % (AUTO) 3.8 % (0.0-6.0); HEMATOCRIT 29 % (33-45); HEMOGLOBIN 9.2 g/dL (11.5-14.8); LYMPHOCYTES # (AUTO) 1.4 /CMM (0.8-4.8); LYMPHOCYTES % (AUTO) 8.5 % (20.0-44.0); MEAN CORPUSCULAR HGB CONC 32 g/dl (31.0-36.0); MEAN CORPUSCULAR VOLUME 97 fL (82-100); MONOCYTES % (AUTO) 6.2 % (2.0-12.0); NEUTROPHILS # (AUTO) 13.6 /CMM (1.8-8.9); NEUTROPHILS % (AUTO) 81.3 % (43.0-81.0); PLATELET COUNT (AUTO) 346 /CMM (150-450); RDW COEFFICIENT OF VARIATION 18.3 (11.5-15.0); RED BLOOD CELL COUNT(AUTO) 2.96 MIL/uL (4.0-5.2); WHITE BLOOD COUNT (AUTO) 16.8 K/uL (4.3-11.0)
[2018-04-14] MEDS: MEROPENEM 1 G in IV NS 0.9% 100 ML IV SCH ×2 (05:29→17:12)
[2018-04-14 06:29] LABS: BAND % (MANUAL) 20 % (0.0-5.0); BASOPHILS % (MANUAL) 1 % (0.0-2.0); EOSINOPHILS % (MANUAL) 4 % (0-4); LYMPHOCYTES % (MANUAL) 4 % (16-48); METAMYELOCYTES % 4 % (0-0); MONOCYTES % (MANUAL) 1 % (0-11.0); MYELOCYTES % 2 % (0-0); NEUTROPHILS % (MANUAL) 55 (42-76); PROMYELOCYTES % 1 % (0-0); REACTIVE LYMPHOCYTES 8 % (0-0)
--- NOTE | 2018-04-14 07:30 | NUR ---
INITIAL RECEIVED PT ON VENTILATOR RATE 16, VT 450, PEEP +10. FIO2 100% THROUGH SHILEY #8 SEDATED ON MORPHINE DRIP AT 2 MG i RR 16 PT THIS AM IN A-FIB/A-FLUTTER AT 91 GIVEN DIG DIG LEVEL 1.41 ON LEVOPHED AT 6 MCG FOR BLOOD PRESSURE SUPPORT WILL TITRATE NEEDED INFUSING THROUGH PICC LINE IN LUIS ALBERTO CLEAN DRY,INTACT. BHANDARI DRAWING ZHANG COLORED URINE MINIMUM OUTPUT TO GRAVITY. BED IN LOW POSITION LOCKED CALL CLARK NEXT TO PT. WILL CONTINUE TO MONITOR.
--- NOTE | 2018-04-14 07:39 | NUR ---
Patient status unchanged.Needs attended.Report given to AM shift RN for MADDISON.
[2018-04-14] MEDS: ACETYLCYSTEINE 10% SOLN 400 MG/4 ML VIAL NEB SCH ×3 (08:13→23:28)
[2018-04-14] MEDS: ASCORBIC ACID 500 MG TABLET GT SCH (08:18)
[2018-04-14] MEDS: LACTOBACILLUS RHAMNOSUS GG 1 EACH CAP.SPRINK PO SCH ×2 (08:18→16:20)
[2018-04-14] MEDS: SPIRONOLACTONE 25 MG TABLET GT SCH (08:18)
[2018-04-14] MEDS: DOCUSATE SODIUM LIQ 100 MG/10 ML UDC NG SCH ×2 (08:18→16:21)
[2018-04-14] MEDS: PANTOPRAZOLE 40 MG VIAL IV SCH ×2 (08:18→21:32)
[2018-04-14] MEDS: FUROSEMIDE 20 MG/2 ML VIAL IV SCH ×2 (08:18→21:32)
--- NOTE | 2018-04-14 08:20 | NUR ---
RT PATIENT REC'D TRACHED ON [facility] VENT WITH ORDERED SETTINGS MANDY WELL. VENT ALARMS CHECKED + AUDIBLE. CUFF CHECKED COOKY PACKER. B/S DIM. PATIENT AIRWAY SUCTIONED WITH SMALL/MOD AMT OF PALE HUERTA SEMITHICK SECRETIONS. PATIENT NON VERBAL, NO DISTRESS NOTED AT THIS TIME. AMBU BAG AT [facility]. Addendum: 04/14/18 at 1754 by JATIN BURCIAGA RT Amended: Links added.
[2018-04-14] MEDS: HYDROGEL DRESSING 90 GM TUBE TP SCH (08:23)
[2018-04-14] MEDS: Z GUARD REMEDY 2 OZ OINT TP SCH (08:24)
[2018-04-14] MEDS: PROSOURCE / PROSTAT (PYXIS) 30 ML UDC GT SCH ×3 (08:24→16:20)
[2018-04-14] MEDS ORDERED: DIGOXIN INJ 0.5 MG/2 ML AMPUL IV SCH (09:00)
[2018-04-14] MEDS: CARVEDILOL 3.125 MG TABLET PO SCH ×2 (09:00→13:13)
[2018-04-14] MEDS: BENAZEPRIL HCL 10 MG TABLET NG SCH (09:00)
[2018-04-14] MEDS: APIXABAN 2.5 MG TABLET PO SCH ×2 (09:21→16:20)
--- NOTE | 2018-04-14 10:25 | NUR ---
Not able to transfer over ABG. Copy placed in patient chart.
[2018-04-14] MEDS: NOREPINEPHRINE 16 MG in IV D5W 500 ML IV PRN (11:04)
[2018-04-14] MEDS: DIGOXIN 0.125 MG TABLET GT SCH (12:36)
[2018-04-14] MEDS: VANCOMYCIN 0.75 GM in IV NS 0.9% 250 ML IV SCH (12:55)
[2018-04-14] MEDS ORDERED: DIGOXIN ELIX UDC 0.25 MG/5 ML UDC GT SCH (13:00)
[2018-04-14] MEDS ORDERED: HYDROMORPHONE MDV 50 MG in IV D5W 225 ML IV PRN (17:00)
--- NOTE | 2018-04-14 17:49 | NUR ---
TRANSFER PT TRANSFERRED TO [facility]-2 RN REPORT GIVEN TO CHEN BY CONSTRUCTION TECHNICIAN TOLERATED WELL TRANSPORT COMPLETED SAFELY. Addendum: 04/14/18 at 1753 by ACE SMITH RN WRONG ENTRY DISREGARD
--- NOTE | 2018-04-14 19:00 | NUR ---
Received patient with tracheostomy to the ventilator on AC mode,on Morphine drip, stuporous,responds to dep pain,+ cough and gag,blinks eyes,opens mouth and bites suction catheter,slightly withdraws lower extremities to pain but no movement noted of upper extremities.Breathing regular and non labored,not in any distress. PEG tube intact,with feeding on hold due to high residuals.Aspiration Precaution observed. PICC line LUIS ALBERTO with Levophed drip for BP support, 1900 recieve with heart rate 119-120,patient asymptomatic, 1999 Heart rate slowing down in the low 100's,,Comfort care done,needs attended. 2130 Heart rate in the 90's ? atrial flutter/afib. 2200 Heart rate in the 80's atrial flutter.Feeding residuals checked ,still high ( 200 ml) continue to hold off feeding for now.
--- NOTE | 2018-04-14 19:41 | NUR ---
PT RECEIVED ON VENT. TOLERATING SETTINGS. SX'D FOR MOD AMT OF THICK HUERTA SECRETIONS. VENT ALARMS SET AND AUDIBLE. AMBU BAG AT BEDSIDE. VENT PLUGGED INTO RED OUTLET. WILL CONTINUE TO MONITOR. Addendum: 04/14/18 at 1942 by MIKE KOROMA RT Amended: Links added.
[2018-04-14] MEDS: ATORVASTATIN 10 MG TABLET PO SCH (21:33)
[2018-04-15] VITALS (99 sets, daily range): BP systolic 76–143; BP diastolic 44–105
--- NOTE | 2018-04-15 02:50 | NUR ---
fEEDING STILL ON HOLD ,STILL WITH HIGH RESIDUAL.FINGER STICK BLOOD SUGAR CHECKED fs=68, 25 ML.D50 W GIVEN IVP. 04270 RECHECKED FINGER MIEGQ=169. 0500 BP LABILE WHEN LEVOPHED DRIP IS IS TITRATED DOWN ,BP DROPS TO 80'S. 0500 AM CARE DONE.
[2018-04-15] MEDS: DEXTROSE 50%-WATER 50 ML DISP.SYRIN IVP PRN (02:54)
[2018-04-15 04:38] LABS: BASOPHILS # (AUTO) 0.1 /CMM (0.0-0.2); BASOPHILS % (AUTO) 0.7 % (0.0-2.0); EOSINOPHILS % (AUTO) 3.7 % (0.0-6.0); HEMATOCRIT 24 % (33-45); HEMOGLOBIN 7.9 g/dL (11.5-14.8); LYMPHOCYTES # (AUTO) 1.1 /CMM (0.8-4.8); LYMPHOCYTES % (AUTO) 7.8 % (20.0-44.0); MEAN CORPUSCULAR HGB CONC 32 g/dl (31.0-36.0); MEAN CORPUSCULAR VOLUME 96 fL (82-100); MONOCYTES % (AUTO) 7.3 % (2.0-12.0); NEUTROPHILS # (AUTO) 11.2 /CMM (1.8-8.9); NEUTROPHILS % (AUTO) 80.5 % (43.0-81.0); PLATELET COUNT (AUTO) 294 /CMM (150-450); RDW COEFFICIENT OF VARIATION 17.5 (11.5-15.0); RED BLOOD CELL COUNT(AUTO) 2.55 MIL/uL (4.0-5.2); WHITE BLOOD COUNT (AUTO) 13.9 K/uL (4.3-11.0)
[2018-04-15 04:52] LABS: CARBON DIOXIDE 28 mmol/L (21-32); CHLORIDE 101 mmol/L (98-107); CREATININE 1.3 mg/dL (0.6-1.3); GLUCOSE 104 mg/dL (74-106); POTASSIUM 5.2 mmol/L (3.5-5.1); SODIUM SERUM 134 mmol/L (136-145); UREA NITROGEN, BLOOD 36 mg/dL (7-18)
[2018-04-15] MEDS: MEROPENEM 1 G in IV NS 0.9% 100 ML IV SCH ×2 (06:03→17:10)
[2018-04-15] MEDS: JEVITY 1.2 CAL 1,000 ML BOTTLE GT PRN (06:04)
--- NOTE | 2018-04-15 07:00 | NUR ---
REMAINS MODERATELY SEDATED ON MORPHINE DRIP.BP STILL LABILE IF ATTEMPT TO WEAN DOWN LEVOPHED.STILL IN ATRIAL FLUTTER WITH CONTROLLED RATE.RESUMED TUBE FEEDING AT 20 ML/HR.MONITOR AND CHECK RESIDUALS.CONTINUE COMFORT CARE.
[2018-04-15] MEDS: ACETYLCYSTEINE 10% SOLN 400 MG/4 ML VIAL NEB SCH ×3 (07:08→23:50)
--- NOTE | 2018-04-15 07:12 | NUR ---
RN INITIAL NOTES: Rec'd pt on bed not in any distress, sedated. Pt on MV via trach, sating at 98%. On telemonitor, A.flutter 88 bpm. Has LUIS ALBERTO PICC, TLC, w/ NS x TKO & MoSO4 Drip x 1mg/hr infusing well. Has GT on cont GTF Jevity 1.2 x 20 cc/hr infusing well, noted 150cc residual, GTF held at this time. Has FC draining to BSB, adequate UOP. Provided comfort & safety measures. Isolation prec observed. Bed kept low & in locked pos. Call light placed w/in reach. Will cont to monitor & attend pt needs.
--- NOTE | 2018-04-15 07:29 | NUR ---
RT NOTE RECEIVED PT MECHANICALLY VENTILATED VIA SHILEY 8 DCT CUFFED TRACHEOSTOMY TUBE. CUFF INFLATED VIA HEEL WASHER STRINGING MACHINE OPERATOR. TRACH TUBE MIDLINE AND SECURE. SETTINGS PRESCRIBED. ALARMS SET PER PROTOCOL AND AUDIBLE. VENT PLUGGED IN TO RED OUTLET. AMBU BAG AT BED SIDE. NO DISTRESS NOTED AT MOMENT. Addendum: 04/15/18 at 0731 by RIGO CLAROS RT Amended: Links added.
[2018-04-15] MEDS: FUROSEMIDE 20 MG/2 ML VIAL IV SCH ×2 (08:26→21:39)
[2018-04-15] MEDS: PANTOPRAZOLE 40 MG VIAL IV SCH ×2 (08:26→21:36)
[2018-04-15] MEDS: SPIRONOLACTONE 25 MG TABLET GT SCH (08:26)
[2018-04-15] MEDS: DOCUSATE SODIUM LIQ 100 MG/10 ML UDC NG SCH ×2 (08:26→16:47)
[2018-04-15] MEDS: ASCORBIC ACID 500 MG TABLET GT SCH (08:26)
[2018-04-15] MEDS: CARVEDILOL 3.125 MG TABLET PO SCH (08:27)
[2018-04-15] MEDS: BENAZEPRIL HCL 10 MG TABLET NG SCH (08:27)
[2018-04-15] MEDS: LACTOBACILLUS RHAMNOSUS GG 1 EACH CAP.SPRINK PO SCH ×2 (08:28→16:47)
[2018-04-15] MEDS: HYDROGEL DRESSING 90 GM TUBE TP SCH (08:30)
[2018-04-15] MEDS: PROSOURCE / PROSTAT (PYXIS) 30 ML UDC GT SCH ×3 (08:30→16:47)
[2018-04-15] MEDS: Z GUARD REMEDY 2 OZ OINT TP SCH (08:30)
[2018-04-15] MEDS: VANCOMYCIN 0.75 GM in IV NS 0.9% 250 ML IV SCH (08:30)
[2018-04-15 08:42] LABS: ABG OXYGEN SATURATION 92.7 % (92.0-98.5); ABG PCO2 50.3 mmHg (35.0-45.0); ABG PH 7.362 (7.350-7.450); ABG PO2 75.6 mmHg (75.0-100.0); AaDO2 296.9 mmHg; COHb 0.3 % (0.5-1.5); MetHb 1.1 % (0.0-1.5); O2Hb 91.4 % (94.0-97.0); SITE, ABG Right Radial; VENT MODE, BG AC 22 450 60% +10
--- NOTE | 2018-04-15 09:27 | NUR ---
Pt seen & examined by Dr. Gomez. ABG reviewed by MD, to keep current settings. RT made aware.
[2018-04-15] MEDS: APIXABAN 2.5 MG TABLET PO SCH ×2 (10:19→16:48)
[2018-04-15] MEDS: DIGOXIN 0.125 MG TABLET GT SCH (12:25)
[2018-04-15] MEDS: NOREPINEPHRINE 16 MG in IV D5W 500 ML IV PRN (15:00)
--- NOTE | 2018-04-15 15:41 | NUR ---
Pt seen & examined by Dr. Mallory w/ orders to: - DC Carvedilol - increase dose of lasix to 40 mg q12h IV - start reglan 5mg via GT q6h d/t high gastric residuals
[2018-04-15] MEDS: METOCLOPRAMIDE HCL 10 MG/2 ML VIAL IV SCH ×2 (17:10→23:17)
[2018-04-15] MEDS ORDERED: METOCLOPRAMIDE HCL 10 MG/10 ML UDC PO SCH (18:00)
--- NOTE | 2018-04-15 18:47 | NUR ---
RN CLOSING NOTES: No acute changes happened w/in shift. Pt tolerated MV settings via trach. On telemonitor, a.flutter / a.fib. LUIS ALBERTO PICC, TLC, flushing well w/ MoSO4 Drip x 1 mg/hr infusing well. GT clamped at this time d/t high gastric residuals - Dr. Mallory aware, on reglan. FC draining to BSB, noted decreased UOP ( is aware). Kept well rested. Needs attended. Isolation prec observed at all times. Bed kept low & in locked pos. Call light placed w/in reach. Will endorse to PM RN for MADDISON. Addendum: 04/15/18 at 1904 by GEORGES BARRON RN Addendum: on Levo Drip x 8 mcg.
--- NOTE | 2018-04-15 19:40 | NUR ---
RN NOTES RECEIVED PT EYES OPEN, REACTED TO PAIN. WANDA CUTE RESPIRATORY DISTRESS. WITH TRACH SHILEY 8 CONNECTED TO VENT SETTING AC 22 TV 450 FIO2 60% PEEP 10 SATURATION 95%. PT IS REACTIVE TO PAIN ON MOSO4 DRIP @ 1MG/HR AND LEVOPHED AT 8 MCG/ MIN. ON LUIS ALBERTO TLC. A- FLUTTER ON TELE MONITOR. GTF JEVITY 1.2 @ 50 ML/HR HELD DUE TO RESIDUAL OF 320 ML WITH SLIGHT GREENISH LIQUID COLOR OUTPUT. F/C DRAINED WITH ZHANG COLOR URINE VIA GRAVITY. WITH POSITIVE STRONG PERIPHERAL PULSES. REPOSITIONED PT FOR SKIN MANAGEMENT OFFLOADED EXT. WITH PILLOWS. KEPT PT CLEAN AND DRY WILL CONTINUE TO MONITOR.
[2018-04-15] MEDS: ATORVASTATIN 10 MG TABLET PO SCH (21:36)
[2018-04-16] VITALS (82 sets, daily range): BP systolic 80–152; BP diastolic 44–109
[2018-04-16] MEDS ORDERED: DILTIAZEM HCL 25 MG IV ONE (01:55)
[2018-04-16] MEDS: DILTIAZEM HCL 25 MG IV IV PRN (02:06)
[2018-04-16] MEDS: VANCOMYCIN 0.75 GM in IV NS 0.9% 250 ML IV SCH ×2 (02:08→21:00)
--- NOTE | 2018-04-16 02:10 | NUR ---
RN NOTES PATIENT HR SUDDENLY GOES TO 150'S TO 160'S, A-FIB ON TELE MONITOR. PRN CARDIZEM GIVEN ORDERED. HR WENT DOWN TO 80'S WILL CONTINUE TO MONITOR.
[2018-04-16 04:55] LABS: CARBON DIOXIDE 28 mmol/L (21-32); CHLORIDE 101 mmol/L (98-107); CREATININE 1.4 mg/dL (0.6-1.3); GLUCOSE 88 mg/dL (74-106); POTASSIUM 5.3 mmol/L (3.5-5.1); SODIUM SERUM 134 mmol/L (136-145); UREA NITROGEN, BLOOD 47 mg/dL (7-18)
[2018-04-16] MEDS: METOCLOPRAMIDE HCL 10 MG/2 ML VIAL IV SCH ×3 (06:01→17:38)
[2018-04-16] MEDS: MEROPENEM 1 G in IV NS 0.9% 100 ML IV SCH ×2 (06:02→17:39)
--- NOTE | 2018-04-16 06:43 | NUR ---
RT PT RECEIVED TRACHED ON [facility] VENT WITH NOTED SETTING.TRACH PATENT AND SECURE VIA TRACH TIES. PT TOLERATING SETTING WELL. NO SOB OR RESP DISTRESS NOTED ON SHIFT. VENT TO RED OUTLET. ALARM SET AND AUDIBLE. FIO2 TITRATED PER MD ORDERS. Addendum: 04/16/18 at 0645 by RANJEET CHARLES RT Amended: Links added.
--- NOTE | 2018-04-16 07:10 | NUR ---
RN NOTES PATIENT IN THE SAME CONDITION. CARDIZEM IVP EFFECTIVE HR REMAINED ON 80'S AND 90'S A- FIB ON TELE MONITOR. AFEBRILE. VSS CLOSELY MONITOR LEVOPHED TITRATED ORDERED, MORPHINE DRIP AT 1 MG/HR CONTINUE. LAST GASTRIC RESIDUAL CHECKED WAS 80 ML STARTED JEVITY 1.2 @ 20 ML/HR. HOB KEPT ELEVATED. F/C DRAINED VIA GRAVITY. PHOTO TAKEN FOR ANY SKIN ISSUES. PT IS CLEANED AND DRY. ENDORSED CONTINUITY OF CARE TO AM NURSE.
--- NOTE | 2018-04-16 07:20 | NUR ---
RN NOTE Received patient obtunded, with trache to vent, on PEEP 10, FIO2 55%. Noted with deep breathing 20's. On Morphine @ 1mg. LUIS ALBERTO PICC intact, on Levo@ 3mcg, will titrate as ordered. Hook cath intact, noted with pale yellow urine drained to BSD. Isolation prec for MRSA nares, maintained and observed. GT intact, feeding with residuals 80mL, kept HOB elevated. Will continue to monitor.
[2018-04-16] MEDS: ACETYLCYSTEINE 10% SOLN 400 MG/4 ML VIAL NEB SCH ×3 (07:34→23:30)
[2018-04-16] MEDS: BENAZEPRIL HCL 10 MG TABLET NG SCH (08:23)
[2018-04-16] MEDS: SPIRONOLACTONE 25 MG TABLET GT SCH (08:23)
[2018-04-16] MEDS: DOCUSATE SODIUM LIQ 100 MG/10 ML UDC NG SCH ×2 (08:47→17:39)
[2018-04-16] MEDS: PANTOPRAZOLE 40 MG VIAL IV SCH ×2 (08:47→22:13)
[2018-04-16] MEDS: ASCORBIC ACID 500 MG TABLET GT SCH (08:47)
[2018-04-16] MEDS: HYDROGEL DRESSING 90 GM TUBE TP SCH (08:48)
[2018-04-16] MEDS: LACTOBACILLUS RHAMNOSUS GG 1 EACH CAP.SPRINK PO SCH ×2 (08:48→17:39)
[2018-04-16] MEDS: Z GUARD REMEDY 2 OZ OINT TP SCH (08:48)
[2018-04-16] MEDS: FUROSEMIDE 20 MG/2 ML VIAL IV SCH (08:48)
[2018-04-16] MEDS: PROSOURCE / PROSTAT (PYXIS) 30 ML UDC GT SCH ×3 (08:49→17:40)
[2018-04-16] MEDS: APIXABAN 2.5 MG TABLET PO SCH ×2 (09:01→17:39)
--- NOTE | 2018-04-16 09:10 | NUR ---
RN NOTE S/E by Dr. Gomez, with order to DC Morphine and ABG in 30 minutes.
[2018-04-16 10:29] LABS: ABG BASE EXCESS 0.3 mmol/L; ABG OXYGEN SATURATION 89.5 % (92.0-98.5); ABG PCO2 55.7 mmHg (35.0-45.0); ABG PO2 68.3 mmHg (75.0-100.0); AaDO2 261.9 mmHg; COHb 0.3 % (0.5-1.5); MetHb 0.8 % (0.0-1.5); O2Hb 88.5 % (94.0-97.0); PEEP,BG 10 cm H2O; SITE, ABG Right Radial; VENT MODE, BG AC 22 450 55% +10; VT, ABG 450 mL
[2018-04-16] MEDS: DIGOXIN 0.125 MG TABLET GT SCH (12:27)
--- NOTE | 2018-04-16 18:09 | NUR ---
RN NOTE Off Levo, SBP remained >100. Off Morphine, RR 20's. Still noted with deep breathing, still PEEP of 10, RT placed FIO2 to 60% @ 1720 for O2 sat 89-90%. Kept clean, warm and dry. Needs attended. Isolation precaution maintained and observed. Turned off feeding for residuals 120, Reglan given as ordered. Kept HOB elevated.
--- NOTE | 2018-04-16 18:27 | NUR ---
PT. 77 Y OLD FEMALE NON VERBAL TRACHED SHADI # 8 @0700 RECEIVED ON VENT. MANDY WITH NOTED SETTINGS. SX'D FOR MOD AMT OF THICK HUERTA SECRETIONS. VENT ALARMS SET AND FUNCTIONAL. B/S RALES BILATERALLY, ( NO MEDS AVAILABLE MM) CALLED RX TO FILL MACHINE. VENT CHANGES DONE PER DR. THAKKAR ORDER AND @ 1715 FIO2 INCREASED TO 60% AND RN INFORMED ALL THE CHANGES. AMBU BAG AT BEDSIDE. VENT PLUGGED INTO RED OUTLET. HME CHANGED, PT. REMAIN STABLE. WILL CONTINUE TO MONITOR. REPORT WILL PASS TO PM SHIFT. Addendum: 04/16/18 at 1831 by HILTON TOBIN RT Amended: Links added.
--- NOTE | 2018-04-16 19:30 | NUR ---
EXPORT FREIGHT MANAGER INITIAL NOTES RECEIVED PATIENT IN BED, EYES CLOSED, OBTUNDED AT BASELINE, REACTIVE TO TACTILE STIMULI. TRACH MIDLINE AND INTACT, STITCHED IN PLACE, ON MECHANICAL VENTILATOR AT PRESCRIBED SETTINGS, TOLERATING FAIRLY, WILL MONITOR RESPIRATORY STATUS CLOSELY. BEDSIDE MONITOR SHOWING AFLUTTER, HR 120s AT THIS TIME. LUIS ALBERTO PICC PATENT AND INTACT, TKO. BHANDARI CATHETER PATENT AND INTACT, DRAINING ZHANG COLORED URINE BY GRAVITY. CALL LIGHT WITHIN EASY REACH, BED IN LOWEST AND LOCKED POSITION. WILL CONTINUE TO CLOSELY MONITOR
--- NOTE | 2018-04-16 21:34 | NUR ---
RECEIVED PT TRACHED ON VENT ON NOTED SETTINGS. PT TOLERATING VENT SETTINGS. SX'D FOR SML AMT OF THICK HUERTA SECRETIONS. VENT ALARMS SET AND AUDIBLE. TRACH SECURE, CUFF COOK PICKLED MEAT. AMBU BAG AT BEDSIDE. WILL CONTINUE TO MONITOR. Addendum: 04/16/18 at 2135 by KOMAL BROWN RT Amended: Links added.
--- NOTE | 2018-04-16 22:08 | NUR ---
SHIRRER NOTES VANCO TROUGH LEVEL = 33. SPOKE TO [facility], WITH ORDER TO HOLD DOSE. WILL HOLD DOSE AND CONTINUE CLOSE MONITORING
[2018-04-16] MEDS: ATORVASTATIN 10 MG TABLET PO SCH (22:13)
[2018-04-17] VITALS (56 sets, daily range): BP systolic 91–154; BP diastolic 50–100
[2018-04-17] MEDS: METOCLOPRAMIDE HCL 10 MG/2 ML VIAL IV SCH ×5 (00:08→22:30)
--- NOTE | 2018-04-17 04:00 | NUR ---
HOMICIDE SQUAD SERGEANT NOTES BED BATH RENDERED. WOUND CARE ON SACRUM RENDERED, PATIENT TOLERATED WELL. WILL CONTINUE TO CLOSELY MONITOR
[2018-04-17 05:03] LABS: CALCIUM, SERUM 7.9 mg/dL (8.5-10.1); CARBON DIOXIDE 29 mmol/L (21-32); CHLORIDE 103 mmol/L (98-107); CREATININE 1.3 mg/dL (0.6-1.3); GLUCOSE 107 mg/dL (74-106); POTASSIUM 5.2 mmol/L (3.5-5.1); SODIUM SERUM 138 mmol/L (136-145); UREA NITROGEN, BLOOD 59 mg/dL (7-18)
[2018-04-17] MEDS: MEROPENEM 1 G in IV NS 0.9% 100 ML IV SCH ×2 (05:41→17:54)
--- NOTE | 2018-04-17 07:00 | NUR ---
PRODUCE WRAPPER NOTES NO ACUTE CHANGES THROUGHOUT THE SHIFT. WILL ENDORSE THE PATIENT TO THE AM SHIFT NURSE FOR CONTINUITY OF CARE
[2018-04-17] MEDS: ACETYLCYSTEINE 10% SOLN 400 MG/4 ML VIAL NEB SCH ×3 (07:35→23:26)
--- NOTE | 2018-04-17 09:00 | NUR ---
FAMILY HERE TO SEE PT. UPDATED ON PROGRESS. MARRY BENOIT NOTIFIED VIA TEXT AND MESSAGE WITH DENTAL COORDINATOR.
[2018-04-17] MEDS: SPIRONOLACTONE 25 MG TABLET GT SCH (09:47)
[2018-04-17] MEDS: LACTOBACILLUS RHAMNOSUS GG 1 EACH CAP.SPRINK PO SCH ×2 (09:47→17:54)
[2018-04-17] MEDS: DOCUSATE SODIUM LIQ 100 MG/10 ML UDC NG SCH ×2 (09:47→17:53)
[2018-04-17] MEDS: FUROSEMIDE 20 MG/2 ML VIAL IV SCH (09:47)
[2018-04-17] MEDS: PANTOPRAZOLE 40 MG VIAL IV SCH ×2 (09:47→20:27)
[2018-04-17] MEDS: ASCORBIC ACID 500 MG TABLET GT SCH (09:47)
[2018-04-17] MEDS: APIXABAN 2.5 MG TABLET PO SCH ×2 (09:49→17:53)
[2018-04-17] MEDS: PROSOURCE / PROSTAT (PYXIS) 30 ML UDC GT SCH ×3 (09:49→17:54)
[2018-04-17] MEDS: BENAZEPRIL HCL 10 MG TABLET NG SCH (09:50)
[2018-04-17] MEDS: HYDROGEL DRESSING 90 GM TUBE TP SCH (09:50)
[2018-04-17] MEDS: Z GUARD REMEDY 2 OZ OINT TP SCH (09:51)
--- NOTE | 2018-04-17 10:00 | NUR ---
FAMILY DISCUSSED PT'S PROGRESS WITH DR BENOIT. SON INDICATED THAT THEY WILL BE MAKING DECISIONS ABOUT POSSIBLY PRECEDING WITH PALLIATIVE CARE.
[2018-04-17] MEDS: MAGNESIUM HYDROXIDE 30 ML UDC PEG PRN (12:02)
[2018-04-17] MEDS: MORPHINE SULFATE INJ 4 MG/ML DISP.SYRIN IV PRN (12:02)
[2018-04-17] MEDS ORDERED: AMIODARONE 150 MG in IV D5W 100 ML IV ONE (12:47)
--- NOTE | 2018-04-17 13:10 | NUR ---
K 5.2 DIG 2.[address] BENOIT. ON TO D/C DIGOXIN, INITIATED ON AMIODARONE BOLUS AND GTT.
[2018-04-17] MEDS: AMIODARONE 900 MG in IV D5W 482 ML IV PRN (13:27)
--- NOTE | 2018-04-17 14:00 | NUR ---
PT CONVERTED AND MAINTAINS SR SINCE 1336.
[2018-04-17] MEDS ORDERED: VANCOMYCIN 0.75 GM in IV NS 0.9% 250 ML IV SCH (15:00)
[2018-04-17] MEDS: BISACODYL SUPP (10 MG) 10 MG/SUPP.RECT SUPP.RECT RC PRN (17:53)
--- NOTE | 2018-04-17 18:13 | NUR ---
RT END OF THE SHIFT REPORT: PT. 78 Y OLD FEMALE NON VERBAL TRACHED SHADI # 8 @0700 RECEIVED ON VENT. MANDY WITH NOTED SETTINGS. SX'D FOR MOD AMT OF THICK HUERTA SECRETIONS. VENT ALARMS SET AND FUNCTIONAL. B/S RALES BILATERALLY, ( NO MEDS AVAILABLE MM) CALLED RX TO FILL MACHINE JUST LIKE DAY BEFORE. @0830 FIO2 CHANGES TO 65% TO KEEP GOOD SATURATION PER DR. THAKKAR AND RN INFORMED ALL THE CHANGES. AMBU BAG AT BEDSIDE. VENT PLUGGED INTO RED OUTLET. HME CHANGED, PT. REMAIN STABLE. WILL CONTINUE TO MONITOR. REPORT WILL PASS TO PM SHIFT. Addendum: 04/17/18 at 1815 by HILTON TOBIN RT Amended: Links added.
--- NOTE | 2018-04-17 20:00 | NUR ---
ICU/RN RECEIVED PT OBTUNDED,DOES NOT OPEN EYES TO STIMULATION,DOES NOT FOLLOW COMMANDS.ON VENT PER TRACH.FI02 65% W/ SATURATION OF 93%.MONITOR SHOWS SR,ON AMIODARONE DRIP AT 0.5MG/MIN.
[2018-04-17] MEDS: SENNOSIDES/DOCUSATE SODIUM 1 TAB TABLET GT SCH (20:27)
--- NOTE | 2018-04-17 20:30 | NUR ---
RECEIVED PT TRACHED SHLY 8 ON VENT. PT TOLERATING VENT SETTINGS. SX'D FOR MOD AMT OF THICK YELLOW SECRETIONS. VENT ALARMS SET AND AUDIBLE. AMBU BAG AT BEDSIDE. VENT PLUGGED INTO RED OUTLET. WILL CONTINUE TO MONITOR. Addendum: 04/17/18 at 2031 by KOMAL BROWN RT Amended: Links added.
[2018-04-17] MEDS: ATORVASTATIN 10 MG TABLET PO SCH (21:43)
[2018-04-18] VITALS (63 sets, daily range): BP systolic 98–169; BP diastolic 56–102
--- NOTE | 2018-04-18 | NUR ---
ICU/RN SUCTIONED FOR SCANT PALE YELLOW SECRETIONS.MONITOR SR W/ RARE TO OCCASIONAL PVC'S.
--- NOTE | 2018-04-18 02:47 | NUR ---
ICU/RN COMPLETE BED BATH GIVEN.NO BOWEL MOVEMENT.TRACH DRESSING CHANGED,POST SUCTIONED.NO EPISODE OF AFIB-FLUTTER,REMAINS IN SR W/RARE-OCCASIONAL PVC'S.
[2018-04-18] MEDS: MORPHINE SULFATE INJ 4 MG/ML DISP.SYRIN IV PRN ×3 (04:12→23:15)
[2018-04-18] MEDS: METOCLOPRAMIDE HCL 10 MG/2 ML VIAL IV SCH ×3 (05:15→17:40)
[2018-04-18] MEDS: MEROPENEM 1 G in IV NS 0.9% 100 ML IV SCH (06:00)
--- NOTE | 2018-04-18 06:09 | NUR ---
ICU/RN CONDITION REMAINS UNCHANGED.REMAINS ON SR,AMIODARONE DRIP AT 0.5MG/MIN.
[2018-04-18] MEDS: ACETYLCYSTEINE 10% SOLN 400 MG/4 ML VIAL NEB SCH ×3 (08:17→23:30)
--- NOTE | 2018-04-18 08:27 | NUR ---
DR BENOIT NOTIFIED THAT PATIENT UNABLE TO TOLERATE FEEDING, AND THAT FEEDING IS BEING HELD AT THE MOMENT. PER DR BENOIT, OK TO GIVE MEDICATIONS THROUGH [facility] FOR NOW ALSO NOTIFIED THAT PATIENT STILL HAS NOT BEEN ABLE TO HAVE A BOWEL MOVEMENT. NO NEW ORDERS
--- NOTE | 2018-04-18 08:30 | NUR ---
DR BENOIT ALSO NOTIFIED THAT PATIENT HAS NOT BEEN ABLE TO HAVE A BOWEL MOVEMENT DESPITE ADMINISTRATION OF ORDERED REGLAN, COLACE, SENNAA, AND BISACODYL SUPPOSITORY HYPOACTIVE BOWEL SOUNDS NOTED UPON AUSCULTATION PER DR BENOIT, CONTINUE WITH CURRENT MEDICATION REGIMEN . NO ORDER FOR KUB YET
[2018-04-18] MEDS: PROSOURCE / PROSTAT (PYXIS) 30 ML UDC GT SCH ×3 (09:55→17:47)
[2018-04-18] MEDS: ASCORBIC ACID 500 MG TABLET GT SCH (09:56)
[2018-04-18] MEDS: SPIRONOLACTONE 25 MG TABLET GT SCH (09:56)
[2018-04-18] MEDS: LACTOBACILLUS RHAMNOSUS GG 1 EACH CAP.SPRINK PO SCH ×2 (09:56→17:47)
[2018-04-18] MEDS: BENAZEPRIL HCL 10 MG TABLET NG SCH (09:56)
[2018-04-18] MEDS: PANTOPRAZOLE 40 MG VIAL IV SCH ×2 (09:57→21:18)
[2018-04-18] MEDS: DOCUSATE SODIUM LIQ 100 MG/10 ML UDC NG SCH ×2 (09:57→17:47)
[2018-04-18] MEDS: Z GUARD REMEDY 2 OZ OINT TP SCH (09:59)
[2018-04-18] MEDS: HYDROGEL DRESSING 90 GM TUBE TP SCH (09:59)
[2018-04-18] MEDS: FUROSEMIDE 20 MG/2 ML VIAL IV SCH (10:00)
[2018-04-18] MEDS: APIXABAN 2.5 MG TABLET PO SCH ×2 (10:02→17:48)
[2018-04-18] MEDS: AMIODARONE 900 MG in IV D5W 482 ML IV PRN (10:22)
[2018-04-18] MEDS: IV NS 0.9% 250 ML IV PRN (11:55)
--- NOTE | 2018-04-18 12:35 | NUR ---
PER DR BENOIT, START PATIENT ON AMIODARONE 200 MG DAILY AFTER AMIODARONE DRIP FINISHES VERBAL READBACK DONE
--- NOTE | 2018-04-18 13:27 | NUR ---
AMIODARONE DRIP INFUSED PER PROTOCOL AND ORDERS. PATIENT SR WITH BBB, PVCS, AND PACS
[2018-04-18] MEDS: BISACODYL SUPP (10 MG) 10 MG/SUPP.RECT SUPP.RECT RC PRN (16:08)
--- NOTE | 2018-04-18 17:10 | NUR ---
RT NOTE: PATIENT RECEIVED WITH MARIOLEY#[id number] TRACH ON PB 840 VENT. ALARMS VERIFIED AND AUDIBLE. SUCTIONED AND LAVAGED SMALL-MODERATE THICK HUERTA SECRETIONS. VENT PLUGGED INTO RED OUTLET. AMBU BAG AT [facility].
[2018-04-18] MEDS: MEROPENEM 500 MG in IV NS 0.9% 50 ML IV SCH (17:36)
[2018-04-18] MEDS: JEVITY 1.2 CAL 1,000 ML BOTTLE GT PRN (17:42)
--- NOTE | 2018-04-18 18:29 | NUR ---
RN CLOSING NOTES: PATIENT RESTING IN BED. GAG AND COUGH REFLEX NOTED DURING SHIFT. PATIENT UNABLE TO FOLLOW COMMANDS PER REPORT. DR BENOIT AWARE OF PATIENT'S NEUROLOGICAL STATUS. NONLABORED BREATHING NOTED ON CURRENT VENT SETTINGS. RIGHT UPPER ARM PICCLINE PATENT AND INTACT. BHANDARI CATHETER INTACT AND DRAINING ZHANG COLORED URINE. BED IN LOWEST LOCKED POSITION. CALL LIGHT WITHIN REACH. PATIENT BEING MONITORED FOR BOWEL MOVEMENT. HYPOACTIVE BOWEL SOUNDS NOTED AT THE MOMENT. GTUBE FEEDING RESTARTED AT 10ML/HOUR PER ORDERS NO RESIDUAL IS NOTED. PATIENT SINUS RHYTHM ON TELE MONITOR WITH PVCS, BBB, PACS. WILL ENDORSE TO NIGHT RN
--- NOTE | 2018-04-18 19:30 | NUR ---
APPLICATIONS DEVELOPER INITIAL NOTE RECEIVED PATIENT ASLEEP, OPENS EYES TO TOUCH, NOT TRACKING. NO S/S OF PAIN OR DISCOMFORT. VENT DEPENDENT. RESPIRATIONS EVEN AND UNLABORED. WITH VENT SETTINGS AC 22, TV 500, FIO2 80%, PEEP 5. ON TELE MONITOR SR WITH PVC, PAC, BBB. GT PATENT, INTACT, IN PLACE, NO RESIDUAL NOTED AT THIS TIME. F/C PATENT, INTACT, DRAINING BY GRAVITY. HOB ELEVATED. SIDE RAILS UP AND LOCKED. BED KEPT AT LOWEST POSITION. WILL CONTINUE TO MONITOR.
--- NOTE | 2018-04-18 19:39 | NUR ---
RECEIVED PT TRACHED SHLY 8 ON VENT WITH NOTED SETTINGS AC 22,500, 80%, +10. PT TOLERATING VENT SETTINGS. PT IS NON VERBAL , RESPONDS TO STIMULI WHEN SUCTIONED. SUCTIONED MOD AMT OF THICK YELLOW SECRETIONS WITH PINK TINGED. VENT ALARMS SET AND AUDIBLE. AMBU BAG AT BEDSIDE. VENT PLUGGED INTO RED OUTLET. WILL CONTINUE TO MONITOR.
[2018-04-18] MEDS ORDERED: VANCOMYCIN 0.75 GM in IV NS 0.9% 250 ML IV SCH (20:00)
[2018-04-18] MEDS: SENNOSIDES/DOCUSATE SODIUM 1 TAB TABLET GT SCH (21:19)
[2018-04-18] MEDS: ATORVASTATIN 10 MG TABLET PO SCH (21:19)
--- NOTE | 2018-04-18 23:06 | NUR ---
ORGAN TUNER NOTE NOTED PATIENT WITH EPISODE OF VTACH 17 BEATS, MD MADE AWARE, WAITING FOR RESPONSE.
[2018-04-19] VITALS (39 sets, daily range): BP systolic 67–161; BP diastolic 45–107
--- NOTE | 2018-04-19 00:10 | NUR ---
NUTRITION SERVICES ASSISTANT NOTE PATIENT NOTED DESATURATION 88%, RR 34, RT AT BEDSIDE, PATIENT SUCTIONED NEEDED, BREATHING TXS GIVEN ORDERED. FIO2 INCREASED TO 100%, WILL CONTINUE TO MONITOR.
--- NOTE | 2018-04-19 00:27 | NUR ---
WHISKEY PROOF READER NOTE SPO2 95% ON FIO2 100%. WILL CONTINUE TO MONITOR.
[2018-04-19] MEDS: METOCLOPRAMIDE HCL 10 MG/2 ML VIAL IV SCH ×2 (01:03→05:33)
[2018-04-19 04:51] LABS: CHLORIDE 104 mmol/L (98-107); CREATININE 0.9 mg/dL (0.6-1.3); GLUCOSE 120 mg/dL (74-106); POTASSIUM 4.4 mmol/L (3.5-5.1); SODIUM SERUM 140 mmol/L (136-145); UREA NITROGEN, BLOOD 65 mg/dL (7-18)
[2018-04-19 04:58] LABS: CARBON DIOXIDE 29 mmol/L (21-32)
[2018-04-19] MEDS: MEROPENEM 500 MG in IV NS 0.9% 50 ML IV SCH (05:32)
[2018-04-19] MEDS: MORPHINE SULFATE INJ 4 MG/ML DISP.SYRIN IV PRN ×2 (05:33→10:18)
--- NOTE | 2018-04-19 07:16 | NUR ---
CONSTRUCTION CONTROLLER CLOSING NOTE NO SIGNIFICANT CHANGES OVERNIGHT. TOLERATING CURRENT VENT SETTINGS. ALL DUE MEDS GIVEN. TOLERATING GTF. KEPT CLEAN AND DRY. ISOLATION PRECAUTIONS OBSERVED. F/C PATENT, INTACT, DRAINING BY GRAVITY. WOUND TX DONE. TURNED AND REPOSITIONED Q2 AND PRN. HOB ELEVATED. SIDE RAILS UP AND LOCKED. BED KEPT AT LOWEST POSITION. CONTINUITY OF CARE ENDORSED TO AM NURSE.
[2018-04-19] MEDS: ACETYLCYSTEINE 10% SOLN 400 MG/4 ML VIAL NEB SCH (07:38)
[2018-04-19] MEDS: PANTOPRAZOLE 40 MG VIAL IV SCH (08:21)
[2018-04-19] MEDS: SPIRONOLACTONE 25 MG TABLET GT SCH (08:22)
[2018-04-19] MEDS: LACTOBACILLUS RHAMNOSUS GG 1 EACH CAP.SPRINK PO SCH (08:22)
[2018-04-19] MEDS: DOCUSATE SODIUM LIQ 100 MG/10 ML UDC NG SCH (08:22)
[2018-04-19] MEDS: APIXABAN 2.5 MG TABLET PO SCH (08:22)
[2018-04-19] MEDS: BENAZEPRIL HCL 10 MG TABLET NG SCH (08:23)
[2018-04-19] MEDS: ASCORBIC ACID 500 MG TABLET GT SCH (08:23)
[2018-04-19] MEDS: HYDROGEL DRESSING 90 GM TUBE TP SCH (08:24)
[2018-04-19] MEDS: Z GUARD REMEDY 2 OZ OINT TP SCH (08:24)
[2018-04-19] MEDS ORDERED: AMIODARONE HCL 200 MG TABLET PO SCH (09:00)
[2018-04-19] MEDS: PROSOURCE / PROSTAT (PYXIS) 30 ML UDC GT SCH (09:56)
--- NOTE | 2018-04-19 10:33 | NUR ---
DR BENOIT NOTIFIED THAT FAMILY IS AT BEDSIDE, SON AND DAUGHTER, PENNY, AWARE AND AGREEING WITH THE PLAN FOR TERMINAL WEANING TODAY. PER DR BENOIT, CHANGE CODE STATUS TO COMFORT MEASURES/DNR. VERBAL READBACK DONE SON AND DAUGHTER VERBALIZED THEIR UNDERSTANDING OF THE CODE STATUS PER DR BENOIT, DISCONTINUE HER MEDICATIONS AND GTUBE FEEDING WELL. PER DR BENOIT, START THE PATIENT ON THE ORDERED MORPHINE DRIP. VERBAL READBACK DONE FOR ALL ORDERS
[2018-04-19] MEDS ORDERED: HYDROGEL DRESSING 90 GM TUBE TP PRN (11:00)
--- NOTE | 2018-04-19 11:20 | NUR ---
AUTHORIZATION GIVEN BY SON, ALINE DWYER, FOR [facility] TO CONTACT [facility] WHEN PATIENT PASSES AWAY
--- NOTE | 2018-04-19 12:09 | NUR ---
1207 -DR BENOIT PRESENT AT BEDSIDE. PER HIS ORDERS, INCREASE MORHPINE INFUSION TO 30 MG/HOUR. VERBAL READBACK DONE 1210- PER DR BENOIT, INCREASE MORPHINE INFUSION TO 45 MG/HOUR. VERBAL READBACK DONE
--- NOTE | 2018-04-19 12:15 | NUR ---
PER DR BENOIT, INCREASE MORPHINE INFUSION TO 90 MG/HOUR . VERBAL READBACK DONE CHARGE NURSE SHAWANDA, NOTIFIED FAMILY AT BEDSIDE
--- NOTE | 2018-04-19 12:23 | NUR ---
PER DR BENOIT, ATIVAN 2 MG IV Q 10 MINS NEEDED. VERBAL READBACK DONE
--- NOTE | 2018-04-19 12:24 | NUR ---
AWARE OF ALLERGY
[2018-04-19] MEDS ORDERED: LORAZEPAM INJ 2 MG/ML VIAL IV PRN (12:30)
--- NOTE | 2018-04-19 12:40 | NUR ---
PER DR THAKKAR, CHANGE VENT SETTINGS TO FIO2 50%, CPAP 15/5
[2018-04-19] MEDS ORDERED: LORAZEPAM INJ 2 MG/ML VIAL IV ONE ×2 (12:42→12:52)
--- NOTE | 2018-04-19 12:42 | NUR ---
PER DR THAKKAR, DECREASE MORPHINE INFUSION TO 10 MG/HOUR DR THAKKAR PRESENT AT BEDSIDE
--- NOTE | 2018-04-19 12:44 | NUR ---
PER DR THAKKAR, ADMINISTER 1 MG OF ATIVAN - 1 MG ADMINISTERED AT 1244
--- NOTE | 2018-04-19 12:52 | NUR ---
PER DR THAKKAR, ADMINISTER 1 MG ATIVAN. 1 MG ATIVAN IV ADMINISTERED AT 1252
--- NOTE | 2018-04-19 12:55 | NUR ---
PER DR THAKKAR, CONTINUE MONITORING PATIENTS AND KEEP VENT SETTINGS ORDERED
--- NOTE | 2018-04-19 13:00 | NUR ---
PER DAUGHTERBRANDI, NO FREQUENT TURNING AND REPOSITIONING, TO KEEP PATIENT COMFORTABLE
--- NOTE | 2018-04-19 13:02 | NUR ---
PT PLACED ON CPAP MODE PER DR. THAKKAR ORDERS. PT IS CURRENTLY ON COMFORT CARE. FAMILY AT BEDSIDE. ALEJANDRA ROSADO IN ROOM DURING VENT CHANGES WELL DR. THAKKAR. PER DR. THAKKAR NO MORE VENT CHANGES TO BE MADE. Addendum: 04/19/18 at 1303 by DILLON BECKER RT Amended: Links added.
--- NOTE | 2018-04-19 14:45 | NUR ---
Asystole on the monitor Pupils fixed and dilated, no reaction to light, no pulses in major arteries can be pulpated, no breath sounds auscultated, no reflexes Pt pronounced by ( the charged nurse) and Sher Dey ( the pt's nurse).
--- NOTE | 2018-04-19 15:26 | NUR ---
PATIENT AT 1452 TIME OF CALLED BY MYSELF AND ELECTRONIC HEALTH RECORDS SPECIALIST, SHAWANDA Bowser. DR THAKKAR NOTIFIED. DR BENOIT NOTIFIED. FAMILY AT BEDSIDE, AWARE.
--- NOTE | 2018-04-19 15:26 | NUR ---
1526- PREVIOUS NOTE- ERROR
--- NOTE | 2018-04-19 15:27 | NUR ---
PATIENT AT 1445 TIME OF CALLED BY MYSELF AND ORACLE CONSULTANT, SHAWANDA Bowser. NO PULSE UPON ASSESSMENT. NO RESPIRATIONS NOTED. DR THAKKAR NOTIFIED. DR BENOIT NOTIFIED. FAMILY AT BEDSIDE, AWARE. NURSING CONTINUOUS DRYOUT OPERATOR HELPER, GARY NOTIFIED
--- NOTE | 2018-04-19 15:28 | NUR ---
SON, ALINE DWYER, AUTHORIZED AND SIGNED THE BODY RELEASE FORM TO [facility] WITH FAMILY, VALUABLES SHEET SIGNED
--- NOTE | 2018-04-19 15:44 | NUR ---
POSTMORTEM CARE DONE. [facility] CONTACTED BY SON, ALINE DWYER
--- NOTE | 2018-04-19 16:29 | NUR ---
PATIENT'S BODY PICKED UP BY [facility] BY STAFF MEMBER CORRIE SEE CHART FOR DOCUMENTS NO VALUABLES ON PATIENT
== END 2018-04-19 14:45 | disposition expired | DRG 4 ==
LOC: ER 03-20 → ICU 03-20 02:57
PROVIDERS: ADMIT Internal Medicine; ATTEND Internal Medicine
PROC: 5A1955Z Respiratory Ventilation, Greater than 96 Consecutive Hours (ICD-10-PCS; 2018-03-20)
PROC: 0BH17EZ Insertion of Endotracheal Airway into Trachea, Via Natural or Artificial Opening (ICD-10-PCS; 2018-03-20)
PROC: 02HV33Z Insertion of Infusion Device into Superior Vena Cava, Percutaneous Approach (ICD-10-PCS; 2018-03-20)
PROC: B548ZZA Ultrasonography of Superior Vena Cava, Guidance (ICD-10-PCS; 2018-03-20)
PROC: 0DB78ZX Excision of Stomach, Pylorus, Via Natural or Artificial Opening Endoscopic, Diagnostic (ICD-10-PCS; 2018-03-21)
PROC: 30233N1 Transfusion of Nonautologous Red Blood Cells into Peripheral Vein, Percutaneous Approach (ICD-10-PCS; 2018-04-02)
PROC: 0DH63UZ Insertion of Feeding Device into Stomach, Percutaneous Approach (ICD-10-PCS; 2018-04-10)
PROC: 0B110F4 Bypass Trachea to Cutaneous with Tracheostomy Device, Open Approach (ICD-10-PCS; principal; 2018-04-11 16:30)
DX: A41.9 Sepsis, unspecified organism (principal); J96.01 Acute respiratory failure with hypoxia; J69.0 Pneumonitis due to inhalation of food and vomit; I50.23 Acute on chronic systolic (congestive) heart failure; K29.71 Gastritis, unspecified, with bleeding; E87.2 Acidosis; N17.9 Acute kidney failure, unspecified; G93.40 Encephalopathy, unspecified; Z51.5 Encounter for palliative care; R04.89 Hemorrhage from other sites in respiratory passages; E46 Unspecified protein-calorie malnutrition; J95.851 Ventilator associated pneumonia; R17 Unspecified jaundice; A31.0 Pulmonary mycobacterial infection; E87.1 Hypo-osmolality and hyponatremia; E87.4 Mixed disorder of acid-base balance; I48.92 Unspecified atrial flutter; I47.1 Supraventricular tachycardia; D50.0 Iron deficiency anemia secondary to blood loss (chronic); D63.8 Anemia in other chronic diseases classified elsewhere; E03.9 Hypothyroidism, unspecified; E83.51 Hypocalcemia; I25.5 Ischemic cardiomyopathy; K21.0 Gastro-esophageal reflux disease with esophagitis; Z93.0 Tracheostomy status; Z86.73 Personal history of transient ischemic attack (TIA), and cerebral infarction without residual deficits; Z90.710 Acquired absence of both cervix and uterus; Z79.01 Long term (current) use of anticoagulants; Z95.810 Presence of automatic (implantable) cardiac defibrillator; R62.7 Adult failure to thrive; K31.84 Gastroparesis; I48.0 Paroxysmal atrial fibrillation; I25.10 Atherosclerotic heart disease of native coronary artery without angina pectoris; H91.90 Unspecified hearing loss, unspecified ear; G30.9 Alzheimer's disease, unspecified; F02.80 Dementia in other diseases classified elsewhere, unspecified severity, without behavioral disturbance, psychotic disturbance, mood disturbance, and anxiety; I10 Essential (primary) hypertension; G62.2 Polyneuropathy due to other toxic agents; T45.515A Adverse effect of anticoagulants, initial encounter; Y92.129 Unspecified place in nursing home as the place of occurrence of the external cause; E80.6 Other disorders of bilirubin metabolism; D53.9 Nutritional anemia, unspecified; E83.39 Other disorders of phosphorus metabolism; K44.9 Diaphragmatic hernia without obstruction or gangrene; I95.9 Hypotension, unspecified; T38.0X5A Adverse effect of glucocorticoids and synthetic analogues, initial encounter; L89.150 Pressure ulcer of sacral region, unstageable; T50.2X5A Adverse effect of carbonic-anhydrase inhibitors, benzothiadiazides and other diuretics, initial encounter; E87.5 Hyperkalemia; I11.0 Hypertensive heart disease with heart failure; I25.2 Old myocardial infarction; Y84.8 Other medical procedures as the cause of abnormal reaction of the patient, or of later complication, without mention of misadventure at the time of the procedure; Y82.8 Other medical devices associated with adverse incidents; Y92.230 Patient room in hospital as the place of occurrence of the external cause
CPT/HCPCS: 31720; 36415; 36569; 36600; 43246; 70450-TC; 71045-TC; 76705-TC; 80048-TC; 80053-TC; 80076-TC; 80162-TC; 80202-TC; 80305; 81000-TC; 82140-TC; 82247-TC; 82248-TC; 82803-TC; 82962-TC; 83605-TC; 83735-TC; 83880; 84100-TC; 84439-TC; 84443-TC; 84478-TC; 84484-TC; 85025-TC; 85027-TC; 85378-TC; 85385-TC; 85610-TC; 85730-TC; 86850-TC; 86921-TC; 87040-TC; 87070-TC; 87081-TC; 87186-TC; 88305-TC; 88313-TC; 88342; 93307-TC; 94002-TC; 94003-TC; 94760-TC; 99082-TC; A4216; A4606; A6248; A6402; A6403; C9113; C9132; G0480; J0282; J1160; J1200; J1815; J1940; J2060; J2185; J2270; J2274; J2354; J2543; J2704; J2765; J2920; J3010; J3370; J3475; J3480; J3490; J7030; J7040; J7042; J7050; J7060; P9016-BL; Q9967; Z7610